=== PATIENT | female | born 1945 | race Caucasian/White ===

== ENCOUNTER 2017-10-09 18:37 | Observation (INO) | payer OTHER ==
--- OUTSIDE RECORDS SUMMARY | 2017-10-09 18:39 | XMS REPORT ---
:1945 Author Organization eClinicalWorks Care Team Providers Name Role Phone Soto Kauffman Provider Role Unavailable Allergies No Known Allergies Problems Problem Type Condition Code Onset Dates Condition Status Problem Constipation K59.00 Active Problem Osteopenia M85.80 Active Problem Hypertriglyceridemia E78.1 Active Problem Controlled type 2 diabetes mellitus E11.9 Active without complication, without long-term current use of insulin Assessment Depression, unspecified depression F32.9 Active type Problem Glaucoma of both eyes, unspecified H40.9 Active glaucoma type Assessment 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 Problem Depression, unspecified depression F32.9 Active type Problem Allergic rhinitis J30.9 Active Problem GERD (gastroesophageal reflux K21.9 Active disease) Problem 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 Problem Family history of cardiac disorder Z82.49 Active Assessment Allergic rhinitis J30.9 Active Assessment GERD (gastroesophageal reflux K21.9 Active disease) Assessment Glaucoma of both eyes, unspecified H40.9 Active glaucoma type Assessment Constipation K59.00 Active Assessment Controlled type 2 diabetes mellitus E11.9 Active without complication, without long-term current use of insulin Problem Hyperlipidemia, mixed E78.2 Active Assessment Osteopenia M85.80 Active Problem Family history of colon cancer Z80.0 Active Assessment Hyperlipidemia, mixed E78.2 Active Problem Family history of diabetes mellitus Z83.3 Active Medications Medication Code Code Instructions Start End Status Dosage System Date Date Oscal 500/200 [facility] 90627352450 500-200 MG-UNIT Active 1 tablet D-3 Orally Once a with food day Latanoprost ND 64423617820 0.005 % Active 1 drop into Ophthalmic Once affected a day eye in the evening Metformin HCl ND 82179810422 500 MG Orally Active 1 tablet Twice a day with meals Simvastatin ND 64821161890 20 MG Orally Active 1 tablet in Once a day the evening Omeprazole ND 71440120973 20 MG Orally Active 1 capsule Once a day Combigan [facility] 00856821265 0.2-0.5 % Active 1 drop into Ophthalmic affected Twice a day eye MiraLax ND 18609025555 - Orally Once a Active 1 packet day mixed with 8 ounces of fluid Tylenol ND 71088112328 325 MG Orally Active 2 tablets every 6 hrs as needed Flonase ND 63112430583 50 MCG/ACT Active 1 spray in Nasally Once a each day nostril Fish Oil ND 31976537557 1000 MG Orally Active 1 capsule Once a day Docusate Sodium ND 88428878094 100 MG Orally Active 1 capsule Once a day as needed Super B Complex ND 0 Active not defined Results No Known Results Summary Purpose eClinicalWorks Submission
--- OUTSIDE RECORDS SUMMARY | 2017-10-09 18:39 | XMS REPORT ---
[...] without long-term current use of insulin Problem Glaucoma of both eyes, unspecified H40.9 Active glaucoma type Problem Depression, unspecified depression F32.9 Active type Problem Allergic rhinitis J30.9 Active Problem GERD (gastroesophageal reflux K21.9 Active disease) Problem 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 Problem Family history of cardiac disorder Z82.49 Active Problem Hyperlipidemia, mixed E78.2 Active Problem Family history of colon cancer Z80.0 Active Problem Family history of diabetes mellitus Z83.3 Active Medications No Known Medications Results No Known Results Summary Purpose eClinicalWorks Submission
--- OUTSIDE RECORDS SUMMARY | 2017-10-09 18:39 | XMS REPORT ---
:1945 Author Organization eClinicalWorks Care Team Providers Name Role Phone Soto Kauffman Provider Role Unavailable Allergies, Adverse Reactions, Alerts Substance Reaction Event Type N.K.D.A. Info Not Available Non Drug Allergy Problems Problem Type Condition Code Onset Dates Condition Status Assessment Screening for osteoporosis Z13.820 Active Assessment Screening mammogram, encounter for Z12.31 Active Assessment 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 Problem Family history of diabetes mellitus Z83.3 Active Assessment Depression, unspecified depression F32.9 Active type Problem Constipation K59.00 Active Assessment Glaucoma of both eyes, unspecified H40.9 Active glaucoma type Problem Hypertriglyceridemia E78.1 Active Problem GERD (gastroesophageal reflux K21.9 Active disease) Problem Osteopenia M85.80 Active Problem Depression, unspecified depression F32.9 Active type Problem Controlled type 2 diabetes mellitus E11.9 Active without complication, without long-term current use of insulin Assessment Microalbuminuria R80.9 Active Assessment Allergic rhinitis J30.9 Active Problem Microalbuminuria R80.9 Active Assessment Constipation K59.00 Active Problem Allergic rhinitis J30.9 Active Problem Family history of cardiac disorder Z82.49 Active Problem Glaucoma of both eyes, unspecified H40.9 Active glaucoma type Problem 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 Assessment Hyperlipidemia, mixed E78.2 Active Assessment Medicare annual wellness visit, Z00.00 Active initial Assessment GERD (gastroesophageal reflux K21.9 Active disease) Assessment Osteopenia M85.80 Active Problem Hyperlipidemia, mixed E78.2 Active Problem Family history of colon cancer Z80.0 Active Assessment Controlled type 2 diabetes mellitus E11.9 Active without complication, without long-term current use of insulin Medications Medication Code Code Instructions Start End Status Dosage System Date Date Docusate Sodium NDC 48592242416 100 MG Orally Active 1 capsule Once a day as needed Metformin HCl NDC 17822697540 500 MG Orally Active 1 tablet Twice a day with meals Combigan ND 02420138610 0.2-0.5 % Active 1 drop into Ophthalmic affected Twice a day eye Tradjenta [facility] 54699333418 5 MG Orally Sep 25, Active 1 tablet Once a day 2017 Flonase ND 27312397789 50 MCG/ACT Active 1 spray in Nasally Once a each day nostril Oscal 500/200 [facility] 77742034835 500-200 MG-UNIT Active 1 tablet D-3 Orally Once a with food day Lisinopril ND 89308257366 2.5 MG Orally Sep 25, Active 1 tablet Once a day 2017 Omeprazole ND 07198870526 40 MG Orally Active 1 capsule Once a day MiraLax ND 71538693178 - Orally Once a Active 1 packet day mixed with 8 ounces of fluid Tylenol ND 98561680244 325 MG Orally Active 2 tablets every 6 hrs as needed Latanoprost [facility] 19043016262 0.005 % Active 1 drop into Ophthalmic Once affected a day eye in the evening Fish Oil ND 78715007502 1000 MG Orally Active 1 capsule Once a day Simvastatin ND 72441821421 20 MG Orally Active 1 tablet in Once a day the evening Super B Complex ND 0 Active not defined Results No Known Results Summary Purpose eClinicalWorks Submission
--- NOTE | 2017-10-09 19:35 | RAD REPORT ---
EXAM DESCRIPTION: RAD - Chest Single View - 10/09/2017 7:30 pm CLINICAL HISTORY: CHEST PAIN Chest pain. COMPARISON: CHEST PA AND LAT 2 VIEW dated 09/03/2013; CHEST PA AND LAT 2 VIEW dated 06/27/2010 FINDINGS: Portable technique limits examination quality. The lungs are grossly clear. The heart is normal in size. No displaced fractures.Hardware plate is pr esent in the cervical spine. IMPRESSION: No acute intrathoracic process suspected.
[2017-10-09 19:37] LABS: Absolute Lymphocytes (CBC) 1.6 K/uL (0.7-4.9); Absolute Monocytes 0.4 K/uL (0.1-1.3); Absolute Neutrophil 2.8 K/uL (1.8-8.0); Basophils % 0.4 % (0-1.3); Eosinophils % 2.2 % (0-4.4); Hematocrit 31.5 % (36.0-45.0); MCH 29.1 pg (27.0-35.0); MCV 83.9 fL (80-100); MPV 8.4 fL (7.6-11.3); Monocytes % 8.6 % (3.3-12.3); RBC Red Blood Cell Count 3.75 M/uL (3.86-4.86)
[2017-10-09 19:54] LABS: Albumin 3.9 g/dL (3.4-5.0); Bilirubin Direct 0.2 mg/dL (0-0.2); Bilirubin Total 0.4 mg/dL (0.2-1.0); Magnesium 2.2 mg/dL (1.8-2.4); Potassium 3.8 mmol/L (3.5-5.1); Protein, Total 7.5 g/dL (6.4-8.2)
[2017-10-09 20:40] LABS: Protime INR 0.92
--- NOTE | 2017-10-09 21:05 | EDPHYS ---
Physician Documentation [facility] Name: Shelby Mccormick Age: 72 yrs Sex: Female : 1945 Arrival Date: 10/09/2017 Time: 18:40 Bed 24 Private MD: Soto Kauffman ED Physician Isidoro Orozco HPI: 10/09 19:35 This 72 yrs old Female presents to ER via Ambulatory with complaints of Chest jr8 Pain. 19:35 The patient or guardian reports chest pain that is located primarily in the anterior jr8 chest wall, left. Onset: acutely, yesterday. The pain radiates to left back. Associated signs and symptoms: The patient has no apparent associated signs or symptoms. The chest pain is described as a pressure, sharp. Duration: The patient or guardian reports multiple episodes. Modifying factors: The symptoms are alleviated by nothing. Severity of pain: At its worst the pain was moderate in the emergency department the pain has improved. The patient has not experienced similar symptoms in the past. The patient has not recently seen a physician. Patient stated that she had episode of chest pain last night. Stated that it had gone away. This afternoon had a more severe bout of chest pain. Came to ED at that time for further evaluation . Historical: - Allergies: 20:09 No Known Allergies; kr2 - Home Meds: 20:05 Lexapro 10 mg Oral tab 1 tab once daily [Active]; omeprazole 20 mg Oral cpDR 1 cap once kr2 daily [Active]; simvastatin 10 mg Oral tab 1 tab once daily [Active]; - PMHx: 20:05 acid reflux; High Cholesterol; kr2 - PSHx: 20:05 Cholecystectomy; Hysterectomy; kr2 - Immunization history:: Adult Immunizations up to date. - Social history:: Smoking status: Patient/guardian denies using tobacco. - Ebola Screening: : Patient denies exposure to infectious person Patient denies travel to an Ebola-affected area in the 21 days before illness onset. ROS: 19:35 Eyes: Negative for injury, pain, redness, and discharge, ENT: Negative for injury, jr8 pain, and discharge, Neck: Negative for injury, pain, and swelling, Respiratory: Negative for shortness of breath, cough, wheezing, and pleuritic chest pain, Abdomen/GI: Negative for abdominal pain, nausea, vomiting, diarrhea, and constipation, Back: Negative for injury and pain, MS/Extremity: Negative for injury and deformity, Skin: Negative for injury, rash, and discoloration, Neuro: Negative for headache, weakness, numbness, tingling, and seizure. 19:35 Cardiovascular: Positive for chest pain, Negative for edema, orthopnea, palpitations, paroxysmal nocturnal dyspnea. Exam: 19:35 Eyes: Pupils equal round and reactive to light, extra-ocular motions intact. Lids and jr8 lashes normal. Conjunctiva and sclera are non-icteric and not injected. Cornea within normal limits. Periorbital areas with no swelling, redness, or edema. ENT: Nares patent. No nasal discharge, no septal abnormalities noted. Tympanic membranes are normal and external auditory canals are clear. Oropharynx with no redness, swelling, or masses, exudates, or evidence of obstruction, uvula midline. Mucous membranes moist. Neck: Trachea midline, no thyromegaly or masses palpated, and no cervical lymphadenopathy. Supple, full range of motion without nuchal rigidity, or vertebral point tenderness. No Meningismus. Cardiovascular: Regular rate and rhythm with a normal S1 and S2. No gallops, murmurs, or rubs. Normal PMI, no JVD. No pulse deficits. Respiratory: Lungs have equal breath sounds bilaterally, clear to auscultation and percussion. No rales, rhonchi or wheezes noted. No increased work of breathing, no retractions or nasal flaring. Abdomen/GI: Soft, non-tender, with normal bowel sounds. No distension or tympany. No guarding or rebound. No evidence of tenderness throughout. Back: No spinal tenderness. No costovertebral tenderness. Full range of motion. Skin: Warm, dry with normal turgor. Normal color with no rashes, no lesions, and no evidence of cellulitis. MS/ Extremity: Pulses equal, no cyanosis. Neurovascular intact. Full, normal range of motion. Neuro: Awake and alert, GCS 15, oriented to person, place, time, and situation. Cranial nerves II-XII grossly intact. Motor strength 5/5 in all extremities. Sensory grossly intact. Cerebellar exam normal. Normal gait. Vital Signs: 18:42 BP 122 / 61; Pulse 68; Resp 16; Pulse Ox 96% on R/A; Weight 76.66 kg; Height 5 ft. 4 ss in. (162.56 cm); Pain 2/10; 20:07 BP 118 / 69; Pulse 88; Resp 23; Pulse Ox 95% on R/A; kr2 21:35 BP 145 / 74; Pulse 54; Resp 12; Temp 97.7; Pulse Ox 95% on R/A; kr2 22:30 BP 136 / 70; Pulse 66; Resp 15; Pulse Ox 97% on R/A; kr2 23:30 BP 126 / 70; Pulse 70; Resp 17; Pulse Ox 95% on R/A; kr2 18:42 Body Mass Index 29.01 (76.66 kg, 162.56 cm) ss MDM: 18:59 Patient medically screened. jr8 21:04 The patient was not given aspirin in the Emergency Department. Patient reports taking jr8 aspirin within the past 24 hours. Data reviewed: vital signs, nurses notes, lab test result(s), EKG, radiologic studies, plain films, and as a result, I will admit patient. Counseling: I had a detailed discussion with the patient and/or guardian regarding: the historical points, exam findings, and any diagnostic results supporting the discharge/admit diagnosis, lab results, radiology results, the need for further work-up and treatment in the hospital. 10/09 18:59 Order name: Basic Metabolic Panel; Complete Time: 20:25 10/09 18:59 Order name: CBC with Diff; Complete Time: 20:25 10/09 18:59 Order name: LFT's; Complete Time: 20:25 10/09 18:59 Order name: Magnesium; Complete Time: 20:25 10/09 18:59 Order name: NT PRO-BNP; Complete Time: 20:25 10/09 18:59 Order name: PT-INR; Complete Time: 20:56 10/09 18:59 Order name: Troponin (emerg Dept Use Only); Complete Time: 20:25 10/09 18:59 Order name: XRAY Chest (1 view); Complete Time: 19:37 10/09 18:59 Order name: EKG; Complete Time: 18:59 10/09 18:59 Order name: Cardiac monitoring; Complete Time: 19:20 10/09 18:59 Order name: EKG - Nurse/Tech; Complete Time: 19:19 10/09 18:59 Order name: IV Saline Lock; Complete Time: 19:20 10/09 18:59 Order name: Labs collected and sent; Complete Time: 19:20 10/09 18:59 Order name: O2 Per Protocol; Complete Time: 19:19 10/09 18:59 Order name: O2 Sat Monitoring; Complete Time: 19:19 10/09 18:59 Order name: Urine Dipstick-Ancillary (obtain specimen); Complete Time: 19:46 Administered Medications: 21:25 Drug: Zofran 4 mg Route: IVP; Site: right antecubital; kr2 21:41 Follow up: Response: No adverse reaction; Nausea is decreased kr2 21:27 Drug: fentaNYL (PF) 25 mcg Route: IVP; Site: right antecubital; kr2 21:41 Follow up: Response: No adverse reaction; Pain is decreased kr2 Disposition: 10/10 12:36 Co-signature as Attending Physician, Isidoro Orozco MD I agree with the assessment and wa plan of care. Disposition: 10/09/17 21:05 Hospitalization ordered by Brittany Salinas for Observation. Preliminary diagnosis is Chest pain, unspecified. - Bed requested for Telemetry/MedSurg (observation). - Status is Observation. bb - Condition is Stable. - Problem is new. - Symptoms have improved. UTI on Admission? No Signatures: Dispatcher [employer] EDIA Ewa Jennings RN RN mw Ballard, Brenda, RN RN bb Smirch, Shelby, RN RN ss Roszak, Josh, PA PA jr8 Isidoro Orozco MD MD wa Reaves, Karey, RN RN kr2 Corrections: (The following items were deleted from the chart) 10/09 21:07 21:05 Hospitalization Ordered by Brittany Salinas MD for Observation. Preliminary mw diagnosis is Chest pain, unspecified. Bed requested for Telemetry/MedSurg (observation). Status is Observation. Condition is Stable. Problem is new. Symptoms have improved. UTI on Admission? No. jr8 23:34 21:07 10/09/2017 21:05 Hospitalization Ordered by Brittany Salinas MD for Observation. bb Preliminary diagnosis is Chest pain, unspecified. Bed requested for Telemetry/MedSurg (observation). Status is Observation. Condition is Stable. Problem is new. Symptoms have improved. UTI on Admission? No. mw
--- NOTE | 2017-10-09 21:05 | ER ---
Nurse's Notes [facility] Name: Shelby Mccormick Age: 72 yrs Sex: Female : 1945 Arrival Date: 10/09/2017 Time: 18:40 Bed 24 Private MD: Soto Kauffman Diagnosis: Chest pain, unspecified Presentation: 10/09 18:42 Presenting complaint: Patient states: pain to L breast/ chest and pressure to L upper ss back that began last night. Comes and goes. Transition of care: patient was not received from another setting of care. Onset of symptoms was October 08, 2017. Risk Assessment: Do you want to hurt yourself or someone else? Patient reports no desire to harm self or others. Initial Sepsis Screen: Does the patient meet any 2 criteria? No. Patient's initial sepsis screen is negative. Does the patient have a suspected source of infection? No. Patient's initial sepsis screen is negative. Care prior to arrival: None. 18:42 Method Of Arrival: Ambulatory ss 18:42 Acuity: GORDON 3 ss Historical: - Allergies: 20:09 No Known Allergies; kr2 - Home Meds: 20:05 Lexapro 10 mg Oral tab 1 tab once daily [Active]; omeprazole 20 mg Oral cpDR 1 cap once kr2 daily [Active]; simvastatin 10 mg Oral tab 1 tab once daily [Active]; - PMHx: 20:05 acid reflux; High Cholesterol; kr2 - PSHx: 20:05 Cholecystectomy; Hysterectomy; kr2 - Immunization history:: Adult Immunizations up to date. - Social history:: Smoking status: Patient/guardian denies using tobacco. - Ebola Screening: : Patient denies exposure to infectious person Patient denies travel to an Ebola-affected area in the 21 days before illness onset. Screenin:06 Abuse screen: Denies threats or abuse. Denies injuries from another. Nutritional kr2 screening: No deficits noted. Tuberculosis screening: No symptoms or risk factors identified. Fall Risk None identified. Assessment: 19:25 General: Appears in no apparent distress. comfortable, well groomed, well developed, kr2 well nourished, Behavior is calm, cooperative, appropriate for age. Pain: Complains of pain in left breast Pain radiates to left scapular area Pain currently is 3 out of 10 on a pain scale. Quality of pain is described as sharp, Pain began last night Is episodic, Alleviated by rest. Neuro: Level of Consciousness is awake, alert, obeys commands, Oriented to person, place, time, situation. Cardiovascular: Capillary refill < 3 seconds in bilateral fingers Patient's skin is warm and dry. Cardiovascular: Heart tones S1 S2. Cardiovascular: Pulses are palpable in right radial artery and left radial artery. Respiratory: Airway is patent Respiratory effort is even, unlabored, Respiratory pattern is regular, symmetrical, Breath sounds are clear bilaterally. GI: Abdomen is flat, non-distended, Reports nausea, states "I always have nausea though". : Denies burning with urination. EENT: Oral mucosa is moist. Derm: Skin is intact, is healthy with good turgor, Skin is pink, warm \\T\\ dry. Musculoskeletal: Circulation, motion, and sensation intact. 20:08 Reassessment: Patient appears in no apparent distress at this time. Patient and/or kr2 family updated on plan of care and expected duration. Pain level reassessed. Patient is alert, oriented x 3, equal unlabored respirations, skin warm/dry/pink. 21:25 Reassessment: Patient appears in no apparent distress at this time. Patient and/or kr2 family updated on plan of care and expected duration. Pain level reassessed. Patient is alert, oriented x 3, equal unlabored respirations, skin warm/dry/pink. Patient medicated as ordered for pain. 21:38 Reassessment: Report called to receiving nurse CALLUM Sweeney. kr2 22:30 Reassessment: Patient appears in no apparent distress at this time. Patient and/or kr2 family updated on plan of care and expected duration. Pain level reassessed. Patient is alert, oriented x 3, equal unlabored respirations, skin warm/dry/pink. Patient denies pain at this time. 23:30 Reassessment: Patient appears in no apparent distress at this time. Patient and/or kr2 family updated on plan of care and expected duration. Pain level reassessed. Patient is alert, oriented x 3, equal unlabored respirations, skin warm/dry/pink. Patient denies pain at this time. Patient states feeling better. Vital Signs: 18:42 BP 122 / 61; Pulse 68; Resp 16; Pulse Ox 96% on R/A; Weight 76.66 kg; Height 5 ft. 4 ss in. (162.56 cm); Pain 2/10; 20:07 BP 118 / 69; Pulse 88; Resp 23; Pulse Ox 95% on R/A; kr2 21:35 BP 145 / 74; Pulse 54; Resp 12; Temp 97.7; Pulse Ox 95% on R/A; kr2 22:30 BP 136 / 70; Pulse 66; Resp 15; Pulse Ox 97% on R/A; kr2 23:30 BP 126 / 70; Pulse 70; Resp 17; Pulse Ox 95% on R/A; kr2 18:42 Body Mass Index 29.01 (76.66 kg, 162.56 cm) ss ED Course: 18:40 Patient arrived in ED. sb2 18:40 Soto Kauffman DO is Private Physician. sb2 18:42 Arm band placed on right wrist. ss 18:45 EKG done, by ED staff, reviewed by Jimmie PETERS. Patient maintains SpO2 saturation kr2 greater than 95% on room air. 18:51 Inserted saline lock: 20 gauge in right antecubital area, using aseptic technique. ss Blood collected. 18:58 [facility] jr8 18:58 Isidoro Orozco MD is Attending Physician. jr8 19:12 Triage completed. ss 19:19 Amairani Quintana, RN is Primary Nurse. kr2 19:20 Patient has correct armband on for positive identification. Bed in low position. Call kr2 light in reach. Side rails up X2. Adult w/ patient. nuclear operator on. Pulse ox on. NIBP on. Door closed. Warm blanket given. Head of bed elevated. 19:29 X-ray completed. Portable x-ray completed in exam room. Patient tolerated procedure mh1 well. 19:30 XRAY Chest (1 view) In Process Unspecified. EDMS 21:05 Brittany Salinas MD is Hospitalizing Provider. jr8 21:39 No provider procedures requiring assistance completed. Patient admitted, IV remains in kr2 place. Administered Medications: 21:25 Drug: Zofran 4 mg Route: IVP; Site: right antecubital; kr2 21:41 Follow up: Response: No adverse reaction; Nausea is decreased kr2 21:27 Drug: fentaNYL (PF) 25 mcg Route: IVP; Site: right antecubital; kr2 21:41 Follow up: Response: No adverse reaction; Pain is decreased kr2 Outcome: 21:05 Decision to Hospitalize by Provider. kg 21:39 Admitted to Tele accompanied by tech, family with patient, via wheelchair, room 420, kr2 with chart, Report called to Zahra 21:39 Condition: stable 21:39 Instructed on the need for admit, Demonstrated understanding of instructions. 23:34 Patient left the ED. bb Signatures: Dispatcher [employer] EDMS Ewa Mohan 1 Terra Lua RN RN bb Chely Morales RN RN ss Jimmie López PA PA jr8 Amairani Quintana RN RN kr2 Maria Elena Engel sb2 Corrections: (The following items were deleted from the chart) 20:05 19:25 Pain: Complains of pain in left breast Pain radiates to left scapular area Pain kr2 currently is 7 out of 10 on a pain scale. Quality of pain is described as sharp, Pain began last night Is episodic, Alleviated by rest, kr2
[2017-10-09] MEDS ORDERED: FENTANYL CITR 100 MCG/2 ML ONE (21:25)
[2017-10-09] MEDS ORDERED: ONDANSETRON 4 MG/2 ML VIAL ONE (21:25)
[2017-10-09] MEDS ORDERED: MORPHINE 4 MG/ML SYR IV PRN (22:55)
[2017-10-09] MEDS ORDERED: ALPRAZOLAM 0.25 MG TABLET PO PRN (22:55)
[2017-10-09] MEDS ORDERED: ACETAMINOPHEN 500 MG TAB PO PRN (22:55)
[2017-10-10 01:49] LABS: Urine Appearance CLEAR; Urine Bilirubin NEGATIVE (NEG); Urine Blood NEGATIVE (NEG); Urine Color YELLOW; Urine Glucose NEGATIVE (NEG); Urine Protein NEGATIVE (NEG); Urine Specific Gravity 1.015 (1.005-1.030); Urine Urobilinogen 0.2 mg/dL (0.2-1.0); Urine pH 6.5 (5.0-7.0)
[2017-10-10 01:57] VITALS: BMI 28.0
[2017-10-10 02:03] LABS: Urine Microscopic Reflex ORDER UMIC
[2017-10-10 02:23] LABS: Urine Bacteria <20 /HPF (<20); Urine Culture Reflex Order REFLEXED; Urine RBC NONE SEEN /HPF (NONE SEEN)
[2017-10-10] MEDS ORDERED: ACETAMINOPHEN 325 MG TABLET PO PRN (06:24)
[2017-10-10 06:49] LABS: Absolute Lymphocytes (CBC) 1.4 K/uL (0.7-4.9); Absolute Monocytes 0.4 K/uL (0.1-1.3); Absolute Neutrophil 2.3 K/uL (1.8-8.0); Basophils % 0.5 % (0-1.3); Eosinophils % 2.3 % (0-4.4); Hematocrit 29.7 % (36.0-45.0); Lymphocytes % 33.8 % (15.3-44.8); MCH 29.1 pg (27.0-35.0); MCV 82.8 fL (80-100); MPV 8.2 fL (7.6-11.3); Monocytes % 9.1 % (3.3-12.3); RBC Red Blood Cell Count 3.58 M/uL (3.86-4.86)
[2017-10-10] MEDS: ONDANSETRON 4 MG/2 ML VIAL IV PRN ×2 (07:05→16:12)
--- NOTE | 2017-10-10 07:57 | P.HP ---
Certification for Inpatient Patient admitted to: Observation With expected LOS: <2 Midnights Patient will require the following post-hospital care: None Practitioner: I am a practitioner with admitting privileges, knowledge of patient current condition, hospital course, and medical plan of care. Services: Services provided to patient in accordance with Admission requirements found in Title 42 Section 412.3 of the Code of Federal Regulations Patient History Date of Service: 10/09/17 Reason for admission: Chest pain with intractable nausea History of Present Illness: Patient is a 72-year-old female who comes to the hospital with complaints of chest discomfort. Pain was mainly in the anterior chest wall which radiate to her left side of her back. The was no worsening signs or symptoms. Pain was described as a heaviness with sharp pressure. Patient denies any other complaints. Patient also has been having some abdominal discomfort and has been seen GI for this. She is scheduled for an endoscopy. She has had persistent nausea which is still been going on with the chest pain. Her symptoms have not been alleviated. This afternoon her chest pain returned and was much worse. In the ER she was worked up in her troponins and EKG were negative. Patient did have a stress test 2 years ago which was unremarkable according to patient. She will be admitted to the hospital for further evaluation. Allergies Latex, Natural Rubber Allergy (Verified 10/09/17 23:51) Itching No Known Allergies Allergy (Uncoded 10/09/17 23:51) Unknown Home Medications: Acetaminophen [Tylenol] 325 mg PO DAILYPRN PRN 04/25/14 Bimatoprost [Lumigan] 1 drop OP BEDTIME 04/25/14 Omeprazole [Prilosec] 40 mg PO DAILY 04/25/14 Brimonidine Tartrate/Timolol [Combigan 0.2%-0.5% Eye Drops] 1 drop OP BID Linagliptin [Tradjenta] 1 tab PO DAILY 10/09/17 Lisinopril [Zestril] 1 tab PO DAILY 10/09/17 Metformin HCl 1 tab PO BID 10/09/17 Simvastatin 1 tab PO BEDTIME 10/09/17 - Past Medical/Surgical History Has patient received pneumonia vaccine in the past: Yes Diabetic: Yes -: Acid Reflux -: High Cholesterol -: NIDDM -: Tubal -: Hysterectomy -: Gall bladder -: Cervical neck repair -: Left Knee Replacement - Family History Father History Unknown: Yes Medical History: Heart disease, Lung disease, GI disease Mother Medical History: Diabetes, Stroke, Kidney disease Sister Medical History: Hypertension, Lung disease, Diabetes, Liver disease, Other ( see notes) Brother Medical History: GI disease, Liver disease - Social History Smoking Status: Never smoker Alcohol use: No CD- Drugs: No Caffeine use: No Place of Residence: Home Review of Systems 10-point ROS is otherwise unremarkable Physical Examination - Vital Signs Temperature: 97.4 F Blood Pressure: 114/60 Pulse: 60 Respirations: 16 Pulse Ox (%): 98 - Physical Exam General: Alert, In no apparent distress, Oriented x3 HEENT: Atraumatic, PERRLA, Mucous membr. moist/pink, EOMI, Sclerae nonicteric Neck: Supple, 2+ carotid pulse no bruit, No LAD, Without JVD or thyroid abnormality Respiratory: Clear to auscultation bilaterally, Normal air movement Cardiovascular: Regular rate/rhythm, Normal S1 S2, Systolic murmur Gastrointestinal: Normal bowel sounds, Soft and benign, Non-distended, No rebound, Tenderness, Guarding Musculoskeletal: No clubbing, No swelling, No tenderness Integumentary: No rashes Neurological: Normal gait, Normal speech, Normal strength at 5/5 x4 extr, Normal tone, Sensation intact, Cranial nerves 3-12 intact, Normal affect Lymphatics: No axilla or inguinal lymphadenopathy - Studies Laboratory Data (last 24 hrs) 10/09/17 18:52: PT 10.8, INR 0.92 10/09/17 18:52: WBC 5.0, Hgb 10.9 L, Hct 31.5 L, Plt Count 227 10/09/17 18:52: Sodium 141, Potassium 3.8, BUN 16, Creatinine 0.90, Glucose 120 H, Magnesium 2.2, Total Bilirubin 0.4, AST 22, ALT 28, Alkaline Phosphatase 70 Assessment & Plan - Problems (Diagnosis) (1) Chest pain, rule out acute myocardial infarction Current Visit: Yes Status: Acute (2) Nausea alone Current Visit: Yes Status: Acute (3) Abdominal pain Current Visit: Yes Status: Acute (4) History of hypertension Current Visit: Yes Status: Acute (5) History of type 2 diabetes mellitus Current Visit: Yes Status: Acute (6) Gastroesophageal reflux Current Visit: Yes Status: Acute - Plan 1. Serial troponins and EKG 2. Cardiology consultation 3. Echocardiogram and stress test 4. Anti-platelet therapy, anti coagulation, beta-tigist, statin, and O2 as needed 5. IV morphine for pain 6. Nitro p.r.n. 7. PPI 8. CT of the abdomen and pelvis to further evaluate abdominal pain and tenderness on exam as well as regarding she is exhibiting 9. GI and DVT prophylaxis Discharge Plan: Home Plan to discharge in: 24 Hours - Advance Directives Does patient have a Living Will: No Does patient have a Durable POA for Healthcare: No - Code Status/Comfort Care Code Status Assessed: Yes Code Status: Full Code Critical Care: No Time Spent Managing PTS Care (In Minutes): 50
[2017-10-10] MEDS ORDERED: REGADENOSON 0.4 MG/5 ML SYR IV ONE ×2 (08:04→08:05)
[2017-10-10] MEDS ORDERED: METOPROLOL TAR 50 MG TAB PO SCH (09:00)
--- NOTE | 2017-10-10 10:53 | RAD REPORT ---
EXAM DESCRIPTION: NM - Rest Stress Cardiac Imaging - 10/10/2017 10:45 am CLINICAL HISTORY: CP Chest pain. COMPARISON: No comparisons TECHNIQUE: The patient was administered approximately 10mCi of Tc 99m Sestamibi prior to resting SPE CT imaging of the heart. The patient was then administered approximately 30 mCi of Tc 99m Sestamibi f ollowing exercise or pharmacologic stress. Multiplanar SPECT images were reviewed. FINDINGS: No stress induced ischemic defect is seen to suggest stress induced ischemia. No fixed def ect is seen to suggest hibernating myocardium or scarred myocardium. The end diastolic volume is 69 ml, the end systolic volume is 26 ml, and the ejection fraction is 62 %. IMPRESSION: No stress induced ischemia.
[2017-10-10] MEDS: PANTOPRAZOLE 40MG TABLET PO SCH (11:16)
--- NOTE | 2017-10-10 11:16 | RAD REPORT ---
EXAM DESCRIPTION: CT - Abdomen Pelvis W Contrast - 10/10/2017 10:42 am CLINICAL HISTORY: abd pain and nausea COMPARISON: No comparisonsNone. TECHNIQUE: Computed axial tomography of the abdomen and pelvis was obtained. 100 cc Isovue-300 is ad ministered intravenously. Oral contrast was given. All CT scans are performed using dose optimization technique as appropriate and may include automated exposure control or mA/KV adjustment according to patient size. FINDINGS: Fatty infiltration liver is present. Spleen, pancreas, adrenals and kidneys appear unremarkable. A hysterectomy has been performed. An adnexal mass is not seen. The gallbladder has been removed. The wall of the distal esophagus appears thickened. There is no evidence of diverticulitis. The cecum is mildly distended at 8.4 centimeters Mild anterior subluxation of L4 on L5 is present IMPRESSION: Apparent thickening of the wall of the distal esophagus could be secondary to incomplet e distention or inflammation Mild cecal distention
[2017-10-10] MEDS ORDERED: NA CHLORIDE 0.9% 1,000 ML ONE (13:21)
[2017-10-10] MEDS ORDERED: PROPOFOL 200 MG/20 ML VIAL IV ONE (15:04)
[2017-10-10] MEDS ORDERED: LIDOCAINE 1% MPF 2 ML AMPULE ONE (15:05)
--- NOTE | 2017-10-10 15:35 | ENDO RPT ---
[address], [address] EGD PROCEDURE REPORT EXAM DATE: 10/10/2017 PATIENT NAME: Shelby Munoz MR#: [id number] BIRTHDATE: 1945 ATTENDING: Isidoro Lynn Dr STATUS: inpatient - [facility] CASTING OPERATOR HELPER: Chelsea Ansari RN and Lizett Brothers RN INDICATIONS: The patient is a 72 yr old Female here for an EGD due to atypical chest pain, nausea, GERD, and abnormal CT abdomen/pelvis revealing thickening of the distal esophagus PROCEDURE PERFORMED: EGD with biopsy MEDICATIONS: Per Anesthesia. TOPICAL ANESTHETIC: none CONSENT: The patient understands the risks and benefits of the procedure and understands that these risks include, but are not limited to: sedation, allergic reaction, infection, perforation and/or bleeding. Alternative means of evaluation and treatment include, among others: physical exam, x-rays, and/or surgical intervention. The patient elects to proceed with this endoscopic procedure. DESCRIPTION OF PROCEDURE: During intra-op preparation period all mechanical medical equipment was checked for proper function. Hand hygiene and appropriate measures for infection prevention was taken. Procedure, possible complications, and alternatives including but not limited to the possibility of bleeding, perforation, tear, infection, sepsis, need for surgery, need for blood transfusion, and anesthesia related complications were explained to the patient. After the risks, benefits and alternatives of the procedure were thoroughly explained, Informed consent was verified, confirmed and timeout was successfully executed by the treatment team. The patient was placed in the left lateral position. The patient was anesthetized with topical anesthesia. Through the anesthetized oropharyngeal area, the scope was passed without any difficulty. The EG-[id number] ([id number]) endoscope was introduced through the mouth and advanced to the third portion of the duodenum. Retroflexed views revealed a small hiatal hernia. The gastroscope was then slowly withdrawn and removed. A small hiatal hernia was found Severe Atrophic gastritis was found in the body of the stomach. Multiple biopsies were obtained and sent to pathology. ADVERSE EVENTS: There were no complications. IMPRESSIONS: 1. A small hiatal hernia 2. Severe atrophic gastritis in the body of the stomach, s/p biopsies RECOMMENDATIONS: 1. await biopsy results 2. acid suppression therapy REPEAT EXAM: Isidoro Lynn Dr eSigned: Isidoro Lynn Dr 10/10/2017 3:34 PM cc: Brittany Salinas CPT CODES: ICD9 CODES: PATIENT NAME: Shelby Munoz MR#: [id number]
[2017-10-10 16:19] VITALS: O2SAT 96
[2017-10-10] MEDS ORDERED: NA CHLORIDE 0.9% 250 ML IV ONE (20:15)
[2017-10-10] MEDS ORDERED: ATORVASTATIN 10 MG TAB PO SCH (21:00)
[2017-10-10] MEDS ORDERED: HOME MED 1 EA UNK (Simvastatin [Simvastatin] 1 TAB) PO SCH (21:00)
[2017-10-10] MEDS: NA CHLORIDE 0.9% 1,000 ML IV SCH (21:08)
--- NOTE | 2017-10-10 22:27 | CON ---
Date of Consultation: 10/10/2017 Reason For Consultation: Atypical chest pain with abnormal CT of the abdomen revealing possible esop hagitis in the distal esophagus. History Of Present Illness: The patient is a 72-year-old white female with a history of diabetes, hy percholesterolemia, gastroesophageal reflux disease, hysterectomy, cholecystectomy, total knee repair . The patient presented to the hospital with atypical chest pain, intractable nausea. The patient s tates nausea has been going over the past 6 months and chest pain over the past 2 days. The patient had negative Cardiology evaluation in the emergency room and on the floor. Here troponin I, EKGs neg ative and further Cardiology evaluation has been negative. CT scan did reveal thickening of the dist al esophagus, impression is possible esophagitis and GI asked to be involved to evaluate this possibi lity. Past Medical History: Significant for diabetes, hypercholesterolemia, gastroesophageal reflux diseas e, hysterectomy, cholecystectomy, left total knee repair, C3 through 5 diskectomy, cystocele repair, rectocele repair, and carpal tunnel surgery. Medications: Home medications include Tylenol, Lumigan, Prilosec, Combigan, Tradjenta, lisinopril, m etformin, and Zocor. Allergies: TO LATEX, CAUSES ITCHING. Social History: , 3 children. Son with diabetes. No tobacco. No alcohol. Family History: Father of pulmonary embolism with DVT after surgery. Mother of strokes. Also what sounds like a brother with liver disease, GI disease. She has 1 son with diabetes. Mother also had chronic kidney disease and diabetes. Review of Systems: The patient has chest pain, nausea. She denies any change in weight, hematemesis, coffee-ground emes is, melena, hematochezia, hemoptysis, hematuria, dysuria, polydipsia, shortness of breath, seizure, s yncope, lower extremity paresthesias, muscle aches, joint aches, backaches. No depression and anxiet y. Physical Examination: Vital signs: The patient is 5 feet 4 inches, 163 pounds, BMI 28 kg/m2. Temperature 96.5 degrees Fah renheit, pulse 80, respirations 16, blood pressure 105/59, O2 saturation 98% on room air. General: She is an elderly female, lying in bed, in no acute distress with a decreased hearing. HEENT: Normocephalic, atraumatic. Anicteric. Pupils equal, round, and reactive to light. Extraocu lar movements are intact. Oropharynx is clear. Mild alopecia. Neck: Supple. No masses. Respirations: Clear to auscultation bilaterally. Cardiac: Regular rate and rhythm. No gallops or rubs. Abdomen: Positive bowel sounds. Soft, nontender, nondistended. No hepatosplenomegaly. Mildly obes e. No peritoneal or Barreto sign. No rebound. Extremities: No clubbing, cyanosis, or edema, 2+ pulses. Neuro: Alert and oriented x3. Grossly nonfocal. 5/5 motor strength to light touch. Laboratory Data: The patient's white count 4.2, hemoglobin 10.4, hematocrit 30, MCV of 83, platelet count of 319, polys of 54%, lymphocytes 34%, monocytes 9%, eosinophils 2%. PT of 10.8, INR of 1.0. The patient has a sodium yesterday on the of 141, potassium 3.8, chloride 109, bicarb 26, BUN 16 , creatinine 0.9, glucose 120, calcium 9.1, magnesium 2.2, total bilirubin 0.4, direct bilirubin 0.2, AST 22, ALT 28, alkaline phosphatase 70. Troponin I of less than 0.02. B-type natriuretic peptide of 30. Total protein 7.5, albumin 3.9. UA reveals 2+ leukocyte esterase, 20-50 white blood cells, , 5 to 10 squamous epithelial cells, negative total protein, 2+ leukocyte esterase. Imagin.CT of the abdomen and pelvis revealed thickening in the distal esophagus, possible consistent with esophagitis or other. Need further comparison with upper endoscopy. 2.Cecal distention plus 8 cm of mild anterior subluxation of the L4-5 is present. 3.Hysterectomy changes noted. 4.Gallbladder has been removed. 5.Fatty infiltration of liver is noted. Impression: 1.Atypical chest pain for 2 days with negative cardiology evaluation. 2.Possible esophagitis with inflammation and thickening of the distal esophagus noted. 3.Ongoing nausea for the past 6 months. 4.Fatty liver noted on CT scan of abdomen. 5.Urinary tract infection. 6.History of diabetes, hypercholesterol, triglyceridemia, gastroesophageal reflux disease, hysterect kt, cholecystectomy, left total knee replacement, C3 through 5 diskectomy, neck surgery. 7.Cystocele repair. 8.Rectocele repair. 9.Carpal tunnel surgery. Recommendations: 1.Continue PPI therapy. 2.EGD. 3.Monitor labs. LOGAN Voice ID: [id number] Report ID: [id number]
--- NOTE | 2017-10-10 22:41 | PN ---
Date of Progress Note: 10/10/2017 Subjective: The patient seen and examined. Chart reviewed and case discussed with RN and Dr. Joshua greene as well as Dr. Lynn. The patient did well with the stress test which was negative. Family at e bedside. Treatment plan explained. All questions answered. The patient is still complaining of c hest tightness and pain. Review of Systems: Negative except as above. Medications: List reviewed. Physical Examination: Vital Signs: Temperature 97.5, heart rate 50, blood pressure 117/55, respirations 18, O2 96% on room air. General: Awake, alert, oriented x3, in some mild distress. Elderly female. CV: S1, S2. No murmurs. Regular rate and rhythm. Peripheral pulses present. Respiratory: Moving air well bilaterally. No wheezing or stridor. Gastrointestinal: Abdomen is soft. No tenderness to palpation. Nondistended. Positive bowel sound s. Extremities: No clubbing, cyanosis, or edema. Neurologic: Nonfocal. Skin: No rashes. Normal skin turgor. Psych: Mood is okay. Affect is full. Insight and judgment are good. Code Status: Full. Laboratory Data: Troponin less than 0.02 x3. Glucose 102. WBC 4.2, H and H 10.4 and 29.7, platelet s 219. UA negative nitrite, 2+ leukocyte esterase, 20 to 50 wbc's, 5 to 10 squamous epithelial cells , less than 20 bacteria. Urine culture pending. Abdomen and pelvis CT personally reviewed, shows ap parent thickening of the wall of the distal esophagus could be secondary to incomplete distention or inflammation. Mild fecal distention. Nuclear stress test shows no stress-induced ischemia. EF 62%. Assessment And Plan: A 72-year-old female with: 1.Chest pain. Acute coronary syndrome ruled out. Cardiac stress test is negative. 2.Intractable nausea without vomiting. 3.Esophageal distention, rule out esophageal tear. Dr. Lynn has been consulted. The patient is g oi for endoscopy. 4.Abdominal pain, generalized. 5.Essential hypertension. 6.History of diabetes mellitus type 2, non-insulin dependent with no complications. 7.Gastroesophageal reflux disease. We will continue with PPI. Plan: Follow up with EGD report. Continue PPI, likely discontinue in the next 24 hours if continues to improve and cleared by consultants. /DOROTA Voice ID: [id number] Report ID: [id number]
[2017-10-11] MEDS: NA CHLORIDE 0.9% 1,000 ML IV SCH (05:32)
[2017-10-11] MEDS: PANTOPRAZOLE 40MG TABLET PO SCH (05:32)
--- NOTE | 2017-10-11 06:11 | EKG ---
Test Date: 2017-10-09 Test Time: 18:42:53 Bottoming Machine Operator: ARGELIA MEASUREMENT RESULTS: Intervals: Rate: 55 LA: 144 QRSD: 86 QT: 414 QTc: 396 [place]: P: 44 LA: 144 QRS: 51 T: 66 INTERPRETIVE STATEMENTS: Sinus bradycardia Otherwise normal ECG Compared to ECG 09/03/2013 13:59:44 Sinus rhythm no longer present Electronically Signed On 10-11-17 06:08:14 CDT by Shekhar Benavidez
[2017-10-11 06:13] LABS: Potassium 4.3 mmol/L (3.5-5.1)
[2017-10-11] MEDS ORDERED: PANTOPRAZOLE 40MG TABLET PO SCH (06:30)
--- NOTE | 2017-10-11 11:19 | P.DS ---
Admission Date: 10/09/17 Discharge Date: 10/11/17 Disposition: ROUTINE DISCHARGE Discharge Condition: FAIR Reason for Admission: Chest pain with intractable nausea Consultations: Dr. wilkinson Procedures: Endoscopy the nuclear cardiac stress test Brief History of Present Illness: Patient is 72 years of age admitted with some chest discomfort Hospital Course: Patient did well he EGD shows gastritis a cardiac nuclear stress test was negative at the time of discharge patient doing well alert oriented responsive cooperative known discomfort slight nausea labs all reviewed mildly anemic patient to be discharged home on pantoprazole at the time of discharge patient alert oriented responsive cooperative vital signs all stable cardiovascular system on sounds normal abdomen soft extremities no edema Vital Signs/Physical Exam: Temp Pulse Resp BP Pulse Ox 97.8 F 57 18 127/59 L 97 10/11/17 04:00 10/11/17 04:00 10/11/17 04:00 10/11/17 04:00 10/11/17 04:00 Laboratory Data at Discharge: WBC 4.2 K/uL (4.3-10.9) L D 10/10/17 05:51 Hgb 10.4 g/dL (12.0-15.0) L 10/10/17 05:51 Hct 29.7 % (36.0-45.0) L 10/10/17 05:51 Plt Count 219 K/uL (152-406) 10/10/17 05:51 PT 10.8 SECONDS (9.5-12.5) 10/09/17 18:52 INR 0.92 10/09/17 18:52 Sodium 145 mmol/L (136-145) 10/11/17 05:30 Potassium 4.3 mmol/L (3.5-5.1) 10/11/17 05:30 BUN 15 mg/dL (7-18) 10/11/17 05:30 Creatinine 0.80 mg/dL (0.55-1.3) 10/11/17 05:30 Glucose 161 mg/dL (74-106) H 10/11/17 05:30 Magnesium 2.2 mg/dL (1.8-2.4) 10/09/17 18:52 Total Bilirubin 0.4 mg/dL (0.2-1.0) 10/09/17 18:52 AST 22 U/L (15-37) 10/09/17 18:52 ALT 28 U/L (12-78) 10/09/17 18:52 Alkaline Phosphatase 70 U/L (45-117) 10/09/17 18:52 Troponin I < 0.02 ng/mL (0.0-0.045) 10/10/17 05:51 Home Medications: Acetaminophen [Tylenol] 325 mg PO DAILYPRN PRN 04/25/14 Bimatoprost [Lumigan] 1 drop OP BEDTIME 04/25/14 Omeprazole [Prilosec] 40 mg PO DAILY 04/25/14 Brimonidine Tartrate/Timolol [Combigan 0.2%-0.5% Eye Drops] 1 drop OP BID Linagliptin [Tradjenta] 1 tab PO DAILY 10/09/17 Lisinopril [Zestril] 1 tab PO DAILY 10/09/17 Metformin HCl 1 tab PO BID 10/09/17 Simvastatin 1 tab PO BEDTIME 10/09/17
[2017-10-11 15:20] VITALS: BP 121/57; TEMP 97.5
--- NOTE | 2017-10-14 10:00 | TREADPHA ---
DX: CHEST PAIN Date of Study: 10/10/2017 Ht: 5 4 Wt: 163 lb 1.6 oz Consulting Physician: BLAKE MEDICATIONS: TYLENOL, XANAX, LIPITOR, ZOFRAN, PROTONIX HISTORY: 72 YEAR OLD FEMALE WITH COMPLAINTS OF CHEST PAIN. HISTORY OF ACID REFLUX AND HIGH CHOLESTEROL PHYSICIAL EXAMINATION: RESTING B.P.: 143/68 RESTING H.R.: 56 RESTING EKG: SINUS BRADYCARDIA WITH SINUS ARRHYTHMIA PROTOCOL: LEXISCAN EXERCISE TIME: 3:30 B.P. AT PEAK STRESS: 132/75 IMPRESSION: LEXISCAN INJECTED, CARDIOLITE INJECTED PER PROTOCOL. SEE NUCLEAR MEDICINE REPORT. NO SUPRAVENTRICULAR TACHYCARDIA. NO VENTRICULAR TACHYCARDIA. ONE PREMATURE ATRIAL COMPLEX DURING AND ONE POST. CHEST PRESSURE THROUGHOUT.
== END 2017-10-11 17:09 | disposition home or self-care (01) ==
LOC: ER 18:37 → ERHOLD 21:30 → 4TH 22:28
PROVIDERS: ADMIT Hospitalist; ATTEND Hospitalist
PROC: 0DB68ZX Excision of Stomach, Via Natural or Artificial Opening Endoscopic, Diagnostic (ICD-10-PCS; principal; 2017-10-10 14:30)
DX: R07.89 Other chest pain (principal); K29.40 Chronic atrophic gastritis without bleeding; K44.9 Diaphragmatic hernia without obstruction or gangrene; R11.0 Nausea; I10 Essential (primary) hypertension; E11.9 Type 2 diabetes mellitus without complications; K21.9 Gastro-esophageal reflux disease without esophagitis; Z96.652 Presence of left artificial knee joint; Z91.040 Latex allergy status
CPT/HCPCS: 36415 ×2; 43239; 71045; 74177; 78452; 80048 ×2; 80076; 82962; 83735; 83880; 84484 ×3; 85025 ×2; 85610; 87086; 87088; 88305; 88312; 93005; 93017; 96374; 96375; 99285; A9500; G0378 ×2; J2001; J2405 ×3; J2785; J3010; J7030 ×3; Q9967; 81003; 81015

== ENCOUNTER 2018-02-19 07:13 | Inpatient (IN) | payer OTHER ==
[2018-02-17 16:58] LABS: Absolute Lymphocytes (CBC) 1.8 K/uL (0.7-4.9); Absolute Monocytes 0.5 K/uL (0.1-1.3); Basophils % 0.5 % (0-1.3); Eosinophils % 1.2 % (0-4.4); Hematocrit 33.8 % (36.0-45.0); Lymphocytes % 27.8 % (15.3-44.8); MPV 8.5 fL (7.6-11.3); Monocytes % 7.9 % (3.3-12.3); RBC Red Blood Cell Count 4.05 M/uL (3.86-4.86)
[2018-02-17 17:05] LABS: Potassium 3.8 mmol/L (3.5-5.1)
[2018-02-17 17:10] LABS: Bilirubin Direct 0.1 mg/dL (0-0.2); Bilirubin Total 0.3 mg/dL (0.2-1.0); Protein, Total 7.7 g/dL (6.4-8.2)
--- NOTE | 2018-02-17 22:54 | EKG ---
Test Date: 2018-02-17 Test Time: 15:55:57 Tobacco Buyer: ROXANA MEASUREMENT RESULTS: Intervals: Rate: 60 ME: 140 QRSD: 84 QT: 394 QTc: 394 [place]: P: 36 ME: 140 QRS: 48 T: 60 INTERPRETIVE STATEMENTS: Normal sinus rhythm Normal ECG Compared to ECG 10/09/2017 18:42:53 Sinus bradycardia no longer present Electronically Signed On 02-17-18 22:54:01 PRAWN TRAWLER HAND by Emeterio Omalley
--- OUTSIDE RECORDS SUMMARY | 2018-02-19 07:17 | XMS REPORT ---
[...] Status Dosage System Date Date Oscal 500/[address] [facility] 89643258631 500-200 MG-UNIT Active 1 tablet D-3 Orally Once a with food day Latanoprost ND 48090040926 0.005 % Active 1 drop into Ophthalmic Once affected a day eye in the evening Metformin HCl ND 59317657746 500 MG Orally Active 1 tablet Twice a day with meals Simvastatin ND 98326068086 20 MG Orally Active 1 tablet in Once a day the evening Omeprazole ND 26074072759 20 MG Orally Active 1 capsule Once a day Combigan [facility] 27001951656 0.2-0.5 % Active 1 drop into Ophthalmic affected Twice a day eye MiraLax ND 37280165922 - Orally Once a Active 1 packet day mixed with 8 ounces of fluid Tylenol ND 17437596274 325 MG Orally Active 2 tablets every 6 hrs as needed Flonase ND 01135410188 50 MCG/ACT Active 1 spray in Nasally Once a each day nostril Fish Oil ND 87473039512 1000 MG Orally Active 1 capsule Once a day Docusate Sodium ND 54331676880 100 MG Orally Active 1 capsule Once a day as needed Super B Complex ND 0 Active not defined Results No Known Results Summary Purpose eClinicalWorks Submission
--- OUTSIDE RECORDS SUMMARY | 2018-02-19 07:18 | XMS REPORT ---
:1945 Author Organization e[employer]Works Care Team Providers Name Role Phone KuaffmanOlivierh Provider Role Unavailable Allergies, Adverse Reactions, Alerts Substance Reaction Event Type N.K.D.A. Info Not Available Non Drug Allergy Problems Problem Type Condition Code Onset Dates Condition Status Problem Hypertriglyceridemia E78.1 Active Problem GERD (gastroesophageal reflux K21.9 Active disease) Problem Osteopenia M85.80 Active Problem Depression, unspecified depression F32.9 Active type Problem Controlled type 2 diabetes mellitus E11.9 Active without complication, without long-term current use of insulin Problem Microalbuminuria R80.9 Active Problem Allergic rhinitis J30.9 Active Problem Family history of cardiac disorder Z82.49 Active Problem Glaucoma of both eyes, unspecified H40.9 Active glaucoma type Problem 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 Assessment Cough R05 Active Problem Hyperlipidemia, mixed E78.2 Active Problem Family history of colon cancer Z80.0 Active Assessment Acute frontal sinusitis, recurrence J01.10 Active not specified Problem Family history of diabetes mellitus Z83.3 Active Problem Constipation K59.00 Active Medications Medication Code Code Instructions Start End Status Dosage System Date Date Latanoprost [facility] 93691639257 0.005 % Active 1 drop into Ophthalmic Once affected a day eye in the evening Oscal 500/200 [facility] 19272281670 500-200 MG-UNIT Active 1 tablet D-3 Orally Once a with food day Lisinopril ND 97700153561 2.5 MG Orally Sep 25, Active 1 tablet Once a day 2017 Fish Oil ND 81976225628 1000 MG Orally Active 1 capsule Once a day Omeprazole ND 88567262143 40 MG Orally Active 1 capsule Once a day Tylenol ND 07931846122 325 MG Orally Active 2 tablets every 6 hrs as needed MiraLax ND 74652773421 - Orally Once a Active 1 packet day mixed with 8 ounces of fluid Flonase ND 34744562850 50 MCG/ACT Active 1 spray in Nasally Once a each day nostril Augmentin ND 65927258455 875-125 MG Nov 10, Nov 20, Active 1 tablet Orally every 12 2017 2018 hrs Simvastatin [facility] 00775265813 20 MG Orally Active 1 tablet in Once a day the evening Metformin HCl [facility] 36877439135 500 MG Orally Active 1 tablet Twice a day with meals Docusate Sodium ND 96042935070 100 MG Orally Active 1 capsule Once a day as needed Combigan [facility] 22507679157 0.2-0.5 % Active 1 drop into Ophthalmic affected Twice a day eye Super B Complex ND 0 Active not defined Tradjenta [facility] 10373692274 5 MG Orally Sep 25, Active 1 tablet Once a day 2017 Results Name Result Date Reference Range Unit Abnormality Flag FLU TEST ----A Negative [id number] ----B Negative [id number] STREP A RAPID ----Result Negative [id number] Summary Purpose eClinicalWorks Submission
--- OUTSIDE RECORDS SUMMARY | 2018-02-19 07:18 | XMS REPORT ---
[...] Dosage System Date Date Docusate Sodium NDC 94420928447 100 MG Orally Active 1 capsule Once a day as needed Metformin HCl NDC 31851868467 500 MG Orally Active 1 tablet Twice a day with meals Combigan ND 57478045164 0.2-0.5 % Active 1 drop into Ophthalmic affected Twice a day eye Tradjenta [facility] 65105045048 5 MG Orally Sep 25, Active 1 tablet Once a day 2017 Flonase ND 13242555358 50 MCG/ACT Active 1 spray in Nasally Once a each day nostril Oscal 500/200 [facility] 68519170369 500-200 MG-UNIT Active 1 tablet D-3 Orally Once a with food day Lisinopril ND 78465806351 2.5 MG Orally Sep 25, Active 1 tablet Once a day 2017 Omeprazole ND 00894598591 40 MG Orally Active 1 capsule Once a day MiraLax ND 47805161416 - Orally Once a Active 1 packet day mixed with 8 ounces of fluid Tylenol ND 34474895789 325 MG Orally Active 2 tablets every 6 hrs as needed Latanoprost [facility] 70420049490 0.005 % Active 1 drop into Ophthalmic Once affected a day eye in the evening Fish Oil ND 24256873258 1000 MG Orally Active 1 capsule Once a day Simvastatin ND 34580216317 20 MG Orally Active 1 tablet in Once a day the evening Super B Complex ND 0 Active not defined Results No Known Results Summary Purpose eClinicalWorks Submission
--- OUTSIDE RECORDS SUMMARY | 2018-02-19 07:18 | XMS REPORT ---
:1945 Author Organization [employer]Works Care Team Providers Name Role Phone Jamari Soto Provider Role Unavailable Allergies No Known Allergies Problems Problem Type Condition Code Onset Dates Condition Status Problem Osteopenia M85.80 Active Problem Family history of cardiac disorder Z82.49 Active Problem GERD (gastroesophageal reflux K21.9 Active disease) Problem Microalbuminuria R80.9 Active Problem Depression, unspecified depression F32.9 Active type Problem Malignant neoplasm of ascending C18.2 Active colon Problem 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 Problem Allergic rhinitis J30.9 Active Problem Controlled type 2 diabetes mellitus E11.9 Active without complication, without long-term current use of insulin Problem Glaucoma of both eyes, unspecified H40.9 Active glaucoma type Problem Family history of colon cancer Z80.0 Active Problem Family history of diabetes mellitus Z83.3 Active Problem Constipation K59.00 Active Problem Hyperlipidemia, mixed E78.2 Active Problem Hypertriglyceridemia E78.1 Active Medications No Known Medications Results No Known Results Summary Purpose eClinicalWorks Submission
--- OUTSIDE RECORDS SUMMARY | 2018-02-19 07:18 | XMS REPORT ---
:1945 Author Organization [employer]Works Care Team Providers Name Role Phone Jamari Soto Provider Role Unavailable Allergies, Adverse Reactions, Alerts [...] type Problem 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 Problem Hyperlipidemia, mixed E78.2 Active Problem Family history of colon cancer Z80.0 Active Assessment Flu vaccine need Z23 Active Problem Family history of diabetes mellitus Z83.3 Active Problem Constipation K59.00 Active Medications Medication Code Code Instructions Start End Status Dosage System Date Date Lisinopril [facility] 07166819986 2.5 MG Orally Sep 25, Active 1 tablet Once a day 2017 Docusate Sodium [facility] 31223903816 100 MG Orally Active 1 capsule Once a day as needed Metformin HCl [facility] 81194260107 500 MG Orally Active 1 tablet Twice a day with meals Oscal 500/200 [facility] 34478622703 500-200 MG-UNIT Active 1 tablet D-3 Orally Once a with food day Omeprazole ND 36789720393 40 MG Orally Active 1 capsule Once a day Flonase [facility] 29382517713 50 MCG/ACT Active 1 spray in Nasally Once a each day nostril Simvastatin [facility] 81936112158 20 MG Orally Active 1 tablet in Once a day the evening Tradjenta [facility] 08510427177 5 MG Orally Sep 25, Active 1 tablet Once a day 2017 Combigan [facility] 40214051948 0.2-0.5 % Active 1 drop into Ophthalmic affected Twice a day eye Latanoprost [facility] 38722010531 0.005 % Active 1 drop into Ophthalmic Once affected a day eye in the evening Super B Complex NDC 0 Active not defined Fish Oil ND 68684257666 1000 MG Orally Active 1 capsule Once a day MiraLax ND 88346150161 - Orally Once a Active 1 packet day mixed with 8 ounces of fluid Augmentin [facility] 26892214622 875-125 MG Nov 10Nov 20, Active 1 tablet Orally every 12 2017 2018 hrs Tylenol [facility] 95023216333 325 MG Orally Active 2 tablets every 6 hrs as needed Results No Known Results Immunizations Vaccine Administration Date FluAD Nov 20, 2017 Summary Purpose eClinicalWorks Submission
[2018-02-19] MEDS ORDERED: NA CHLORIDE 0.9% 1,000 ML ONE ×4 (07:41→13:55)
[2018-02-19] MEDS ORDERED: CEFAZOLIN 1GM (PREMIX IV) 1 GM/50 ML BAG ONE (07:41)
[2018-02-19] MEDS ORDERED: PROPOFOL 200 MG/20 ML VIAL IV ONE (08:34)
[2018-02-19] MEDS ORDERED: FENTANYL CITR 100 MCG/2 ML ONE ×2 (08:35→12:10)
[2018-02-19] MEDS ORDERED: MIDAZOLAM HCL 2 MG/2 ML INJ ONE (08:35)
[2018-02-19] MEDS ORDERED: LIDOCAINE 2% MPF 5 ML VIAL ONE (08:35)
[2018-02-19] MEDS ORDERED: ROCURONIUM 50 MG/5 ML VIAL IV ONE ×3 (08:35→12:58)
[2018-02-19] MEDS ORDERED: ONDANSETRON 4 MG/2 ML VIAL ONE ×2 (08:51→15:04)
[2018-02-19] MEDS ORDERED: BUPIVACAINE 0.25% PF 30 ML VIAL ONE (09:09)
[2018-02-19] MEDS ORDERED: EPHEDRINE SULF 50 MG/ML VIAL ONE ×2 (09:09→12:50)
[2018-02-19] MEDS ORDERED: BUPIVACA 0.25%/EPI 0.0005% MDV 50 ML VIAL ONE (09:18)
[2018-02-19] MEDS ORDERED: GLYCOPYRROLATE 0.2 MG/ML SYR ONE ×2 (09:36→14:17)
[2018-02-19] MEDS ORDERED: NS 0.9% VIAL 10 ML ONE (12:51)
--- NOTE | 2018-02-19 14:16 | P.OP ---
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
[2018-02-19] MEDS ORDERED: NEOSTIGMINE 1 MG/ML -5 ML SYRINGE ONE (14:17)
[2018-02-19] MEDS ORDERED: NALOXONE 0.4 MG/ML VIAL IV PRN (14:47)
[2018-02-19] MEDS ORDERED: HYDROMORPHONE/PCA 10 MG/50 ML SYR IV PRN (14:47)
[2018-02-19] MEDS: ONDANSETRON 4 MG/2 ML VIAL IV PRN (14:55)
[2018-02-19] MEDS: D5 0.45 NS 1,000 ML IV SCH ×3 (15:00→20:38)
[2018-02-19] MEDS: HYDROMORPHONE HCL 1 MG/ML INJ ONE ×2 (15:46→15:57)
[2018-02-19] MEDS: INSULIN -REGULAR HUMAN 50 UNIT/0.5 ML ML SQ SCH ×2 (16:30→20:38)
[2018-02-19 17:11] VITALS: BMI 27.3
[2018-02-19] MEDS: HYDROCODONE/APAP 7.5/325 MG TAB PO PRN (17:52)
[2018-02-19] MEDS: METRONIDAZOLE 500mg IVPB 500 MG/100 ML BAG IV SCH ×2 (18:00→23:48)
[2018-02-19] MEDS: Levofloxacin500mg IV 500 MG/100 ML BAG IV SCH (19:13)
--- NOTE | 2018-02-20 00:38 | OP ---
Date of Procedure: 02/19/2018 Surgeon: Jim Simental MD, Preoperative Diagnosis: Cecal adenocarcinoma. Postoperative Diagnosis: Cecal adenocarcinoma. Procedures Performed: 1.Laparoscopic right hemicolectomy. 2.Laparoscopic adhesiolysis greater than 3 hours. Anesthesia: General endotracheal plus local. Estimated Blood Loss: Less than 100 cc. Specimen: Right colon specimen. Findings: Significant intraabdominal adhesions. Operative Technique: Laparoscopic. Complications: None. Drains: Urinary catheter. Disposition: Transferred to recovery room in good condition. Procedure In Detail: After informed consent was obtained, the patient was brought to the operating r oom, prepped and draped in the usual sterile fashion. After adequate anesthesia was achieved, the phipps praumbilical area was anesthetized 0.25% Marcaine, sharply incised, and a 5-mm trocar was introduced in the abdomen without evidence of complication. Insufflation was obtained to 15 mmHg at this time. Additional trocar site was chosen in the epigastrium. This was similarly anesthetized and sharply i ncised. A 5-mm trocar was introduced in the abdomen without evidence of complication. The umbilical trocar was then up-sized to a 12-mm under direct visualization without evidence of complication. Ad ditional trocar was chosen in the suprapubic position. This was 5-mm trocar placed under direct visu alization without evidence of complication. Additional trocar was chosen in the left lower quadrant. This was similarly anesthetized and sharply incised. A 5-mm trocar was introduced in the abdomen w ithout evidence of complication. Additional trocar was chosen in the right mid abdomen, which was al so similarly anesthetized and sharply incised. A 5-mm trocar was introduced in the abdomen without e vidence of complication. The patient was then positioned head down, right side up position. The linnette er and the peritoneal structures were inspected for any evidence of metastatic spread of her previous ly diagnosed colonoscopy and pathology confirmed adenocarcinoma of the cecum. There was no obvious m etastatic spread grossly visible on any peritonealized surfaces. I ran the bowel from the ligament o f Treitz to the ileocecal valve, and no additional metastatic foci were noted at this time. The darrin ent was then positioned in the head down, right side up position. Ratcheted grasper was used to gras p the patient's right colon, and the ileocolic vessels were dissected out after scoring the peritoneu m in a medial to lateral fashion. The LigaSure device was then used to help skeletonize the ileocoli c artery and vein. Each of these were individually clipped doubly on the proximal side and singly on the distal side, and the LigaSure device was used to divide these at this time. I then continued th e deep peritoneal to score the peritoneum on the medial to lateral aspect of the peritonealized surfa ce of the mesentery up to the duodenum which was visualized at this time. Dissection continued to re move the colon from the Gerota fascia which was not violated at this time and off its attachments in the above-stated fashion. The right branch of middle colic artery was appreciated, and this was easi ly spared. As this was a cecal colon cancer, an extended right hemicolectomy was not necessary. The refore, I focused on getting just past the hepatic flexure onto the transverse colon. I created a wi ndow next to the right branch of middle colic arcade; and after this window was created, the LigaSure device was used to take the mesentery down and mobilize this aspect of the colon. I then turned my attention back to the terminal ileum as this was a cecal cancer. I took approximately 10 cm of termi nal ileum, small bowel, distal ileum, and created a mesenteric window at this time. The Endo LISBET 35 blue load was fired across this small bowel with good approximation of tissues. I then took the mese ntery of the terminal ileum down toward the confluence of the cecum using the LigaSure device. I the n turned my attention back to the colon at the transverse colon mesenteric window. An Endo LISBET 35 bl ue load was fired across this as well with good approximation of tissues. Two fires were required to get completely across the colon. Good approximation of the tissues was appreciated. I then ensured that the specimen was completely mobilized from Gerota fascia and from the duodenum using blunt diss ection and LigaSure dissection. After the colon was completely mobilized and removed from the mesent yessenia structures, it was placed above the patient's liver. I then grasped and reapproximated and mobi lized the small bowel to come to the midline for an extracorporeal anastomosis. I also ensured that the transverse colon was mobilized appropriately by scoring the peritoneum on the medial lateral aspe cts and taking the omentum in a bivalve type fashion. After the small bowel was brought up, the chelsi tonealized surfaces were also scored to allow for better mobilization. Graspers were prepared at thi s time, and the small bowel and the colon distal anastomosis were grasped, and the colon specimen was grasped as well with a grasper through the middle port. All laparoscopic equipment was then turned off at this time, and the supraumbilical incision was then enlarged to allow for specimen transfer. This was the location where the grasper was placed, and the right colon specimen was to be brought ou t through this area. Prior to this, however, I placed an Felton wound protector with the associated GelPort equipment was brought on the field, and the wound protector was placed into the field, and th e colon was removed in its entirety while protecting and not handling the colon as much as possible. It was brought out easily through the midline wound protected incision. The specimen was then passe d off to the back table for later examination. The proximal and distal aspects of the small bowel an d transverse colon were brought up to the wound and brought out of the wound without tension. No add itional maneuvers were required to bring the anastomotic ends in approximation. As such, an antimese nteric small bowel stitch was placed onto the tenia of the transverse colon, ensuring there was no to rsion or twisting of the colon at this time. I then placed a distal stitch also in a similar fashion on the antimesenteric border of the small bowel to the tenia of the transverse colon. In a side-to- side isoperistaltic manner, I created proximal-distal enterotomies on the transverse colon and the sm all bowel, and an Endo LISBET 35 blue load was fired across this to create a common channel. This was i nspected. Proper hemostasis was achieved this time. There was no spillage at this time. I then reeves d-sewed the common channel using a 2-0 PDS in a canal stitch type fashion, and a second layer of inte rrupted silk Lembert sutures was passed over this. The anastomosis was found to be widely patent and examined at this time, and the area was inspected. Proper hemostasis was achieved at this time. Th e anastomosis was then dropped back into the patient's abdomen, and the GelPort was applied at this t tyra, and reinsufflation was obtained. The abdomen was copiously irrigated multiple times to complete ly dry. The greater omentum was then placed back over the anastomosis which was found to be in good anatomic position without any evidence of spillage. After complete manipulation and submersion, ther e were no bubbles and no evidence of leakage. The anastomosis was wrapped with omentum and placed in the normal anatomic position. The abdomen was then completely irrigated and suctioned once again un til dry. The patient was positioned back into neutral position, and the infraumbilical 10 port was t hen closed with a Kirit-Sarah suture passer with 0 Vicryl in interrupted fashion with good approx imation of tissues. The abdomen was then completely desufflated under direct visualization while galina ing out all trocars, and the GelPort was left in place. The GelPort was then removed, and the Felton wound retractor was removed at this time and sent on the back table as well. The upper midline inci warren for specimen extraction was then closed using a 0 looped PDS in a running fashion with good appr oximation of tissues. All skin incisions were copiously irrigated, and the 10-mm and the upper midli ne incisions were closed with additional 3-0 Vicryl in a deep dermal fashion, and all skin incisions were then copiously irrigated once again and dried and closed with a 4-0 Monocryl in a running fashio n. Dermabond was placed overtop. The patient tolerated the procedure well without evidence of compl ications, transferred to the PACU in good condition. All counts were correct at the end of the case. I then examined the specimen on the back table and found that the cancer was localized to the cecum in the periappendiceal fashion, and adequate specimen appeared to be obtained at this time. I then completed the procedure. JULES/DOROTA Voice ID: [id number] Report ID: [id number]
[2018-02-20 02:39] LABS: Urine Appearance CLEAR; Urine Bilirubin NEGATIVE (NEG); Urine Blood NEGATIVE (NEG); Urine Color YELLOW; Urine Glucose NEGATIVE (NEG); Urine Protein NEGATIVE (NEG); Urine Specific Gravity <=1.005 (1.005-1.030); Urine Urobilinogen 0.2 mg/dL (0.2-1.0)
[2018-02-20 02:51] LABS: Urine Microscopic Reflex NO UMIC
[2018-02-20] MEDS: ONDANSETRON 4 MG/2 ML VIAL IV PRN ×3 (03:05→16:46)
[2018-02-20] MEDS: METRONIDAZOLE 500mg IVPB 500 MG/100 ML BAG IV SCH ×3 (05:21→16:44)
[2018-02-20 06:12] LABS: Absolute Lymphocytes (CBC) 0.7 K/uL (0.7-4.9); Absolute Monocytes 0.5 K/uL (0.1-1.3); Absolute Neutrophil 5.1 K/uL (1.8-8.0); Basophils % 0.1 % (0-1.3); Eosinophils % 0.5 % (0-4.4); Hematocrit 29.6 % (36.0-45.0); Lymphocytes % 10.9 % (15.3-44.8); MPV 8.5 fL (7.6-11.3); Monocytes % 8.5 % (3.3-12.3); RBC Red Blood Cell Count 3.57 M/uL (3.86-4.86)
[2018-02-20 06:15] LABS: Protime INR 1.14
[2018-02-20 06:25] LABS: BUN Blood Urea Nitrogen 6 mg/dL (7-18); Bicarbonate 24 mmol/L (21-32); Glucose Level 193 mg/dL (74-106); Magnesium 1.7 mg/dL (1.8-2.4); Potassium 3.6 mmol/L (3.5-5.1); Sodium Level 139 mmol/L (136-145)
[2018-02-20] MEDS ORDERED: MAGNESIUM SULFATE 1 gm IVPB 1 GM/100 ML BAG IV ONE (06:40)
[2018-02-20] MEDS ORDERED: POTASSIUM CL SA 10 MEQ TAB PO ONE (06:46)
[2018-02-20] MEDS: POTASS/SODIUM PHOSPHATE 1 PKT POWD.PACK PO SCH ×3 (07:38→10:23)
[2018-02-20] MEDS: INSULIN -REGULAR HUMAN 50 UNIT/0.5 ML ML SQ SCH ×4 (08:34→20:54)
[2018-02-20] MEDS ORDERED: MORPHINE 4 MG/ML SYR IV PRN (08:35)
[2018-02-20] MEDS ORDERED: HYDROCODONE/APAP 7.5/325 MG TAB PO PRN (08:35)
[2018-02-20] MEDS: ENOXAPARIN 40 MG/0.4 ML SQ SCH (08:40)
--- NOTE | 2018-02-20 08:44 | P.PN ---
Subjective Date of Service: 02/20/18 Subjective: No new changes (Pain is stable aroudn 5, but she feels more nauseated today, she feels when she takes SENIOR SYSTEMS ENGINEER dilaudid it causes nausea, otherwise it is minimal. No gas, tolerating sips of liquids) Physical Examination - Vital Signs Temperature: 98.6 F Blood Pressure: 140/55 Pulse: 90 Respirations: 16 Pulse Ox (%): 98 - Physical Exam General: Alert, In no apparent distress, Cooperative Respiratory: Normal air movement (IS ~1250) Cardiovascular: No edema, Normal S1 S2 Gastrointestinal: Other (soft, moderate appropriate TTP, mild distention, incisions clean and dry) Musculoskeletal: No swelling Integumentary: No rashes Neurological: Normal speech Urinary: Suggs catheter - Studies Laboratory Data (last 24 hrs) 02/20/18 05:53: WBC 6.4, Hgb 9.9 L, Hct 29.6 L, Plt Count 177 D 02/20/18 05:34: Sodium 139, Potassium 3.6, BUN 6 L, Creatinine 0.64, Glucose 193 H, Phosphorus 2.0 L, Magnesium 1.7 L D 02/20/18 05:34: PT 13.5 H, INR 1.14 Assessment And Plan - Current Problems (Diagnosis) (1) Colon cancer Current Visit: Yes Status: Acute Plan: Neuro: will change pain regime - DC SENIOR SYSTEMS ENGINEER, start IV morphine Q4 prn, increase norco to 2 tabs Q4 CVS: RRR, continue telemetry Pulm: continue incentive spirometry Q15 min, continue SPO2 monitoring, cough and deep breathing Abd: serial exams, continue abdominal binder, await bowel function, nausea likely post op and medicine FEN: continue IV fluids, electrolyte replacement protocol, continue clear liquids ID: will likely DC antibiotics in AM, levaquin, flagyl, DC suggs in AM Endo: continue insulin sliding scale, will consider change to moderate in AM Prophylaxis: SCDs, and lovenox 40mg SQ ordered PT: ambulate with assist, and out of bed Planning: discharge planning for 2-3 days likely (2) S/P right hemicolectomy Current Visit: Yes Status: Acute
[2018-02-20] MEDS: HYDROCODONE/APAP 7.5/325 MG TAB PO PRN ×3 (10:25→22:33)
[2018-02-20] MEDS: D5 0.45 NS 1,000 ML IV SCH ×2 (16:59→20:54)
[2018-02-20] MEDS: Levofloxacin500mg IV 500 MG/100 ML BAG IV SCH (17:51)
[2018-02-21] MEDS: METRONIDAZOLE 500mg IVPB 500 MG/100 ML BAG IV SCH ×2 (00:01→05:12)
[2018-02-21] MEDS: ONDANSETRON 4 MG/2 ML VIAL IV PRN ×3 (03:44→23:53)
[2018-02-21] MEDS: HYDROCODONE/APAP 7.5/325 MG TAB PO PRN ×3 (04:22→23:44)
[2018-02-21] MEDS: D5 0.45 NS 1,000 ML IV SCH ×3 (05:21→23:53)
[2018-02-21 06:35] LABS: Absolute Lymphocytes (CBC) 0.7 K/uL (0.7-4.9); Absolute Monocytes 0.6 K/uL (0.1-1.3); Absolute Neutrophil 5.6 K/uL (1.8-8.0); Basophils % 0.1 % (0-1.3); Eosinophils % 0.9 % (0-4.4); Hematocrit 30.3 % (36.0-45.0); Lymphocytes % 10.3 % (15.3-44.8); MPV 8.1 fL (7.6-11.3); Monocytes % 9.1 % (3.3-12.3); RBC Red Blood Cell Count 3.69 M/uL (3.86-4.86)
[2018-02-21 06:43] LABS: BUN Blood Urea Nitrogen 4 mg/dL (7-18); Bicarbonate 24 mmol/L (21-32); Glucose Level 204 mg/dL (74-106); Phosphorus 1.8 mg/dL (2.5-4.9); Potassium 3.5 mmol/L (3.5-5.1); Sodium Level 140 mmol/L (136-145)
[2018-02-21] MEDS: INSULIN -REGULAR HUMAN 50 UNIT/0.5 ML ML SQ SCH ×4 (07:30→21:44)
[2018-02-21] MEDS ORDERED: POTASSIUM CL SA 10 MEQ TAB PO ONE (09:00)
[2018-02-21] MEDS ORDERED: DIPHENHYDRAMINE 25 MG TAB/CAP PO PRN (09:34)
[2018-02-21] MEDS ORDERED: D50W 25 GM/50 ML SYRINGE IV PRN (09:36)
[2018-02-21] MEDS ORDERED: GLUCAGON 1 MG/VIAL IM PRN (09:36)
--- NOTE | 2018-02-21 09:40 | P.PN ---
Subjective Date of Service: 02/21/18 Subjective: Improving (pain under good control with PO and occasional PRN, no gas, no emesis, mild nausea, increased nasal congestion) Physical Examination - Vital Signs Temperature: 97.6 F Blood Pressure: 131/65 Pulse: 79 Respirations: 18 Pulse Ox (%): 96 - Physical Exam General: Alert, In no apparent distress, Cooperative HEENT: Mucous membr. moist/pink Respiratory: Clear to auscultation bilaterally, Normal air movement Cardiovascular: Normal pulses, Regular rate/rhythm Gastrointestinal: Other (soft, mild distention, appropriate TTP, incisions clean and dry, hypoactive bowel sounds, binder in place) - Studies Laboratory Data (last 24 hrs) 02/21/18 05:56: Sodium 140, Potassium 3.5, BUN 4 L, Creatinine 0.62, Glucose 204 H, Phosphorus 1.8 L, Magnesium 2.0 02/21/18 05:56: WBC 7.0, Hgb 10.4 L, Hct 30.3 L, Plt Count 207 Assessment And Plan - Current Problems (Diagnosis) (1) Colon cancer Current Visit: Yes Status: Acute Plan: Neuro: pain regime - continue IV morphine Q4 prn, increase norco to 2 tabs Q4 CVS: RRR, continue telemetry Pulm: continue incentive spirometry Q15 min, continue SPO2 monitoring, cough and deep breathing, RT consulted, will add claritin, benadryl PRN. humidifier if O2 is needed Abd: serial exams, continue abdominal binder, await bowel function, nausea likely post op and medicine FEN: continue IV fluids, electrolyte replacement protocol, continue clear liquids ID: DC antibiotics levaquin, flagyl, DC suggs Endo: continue insulin sliding scale, change to moderate scale Prophylaxis: SCDs, and lovenox 40mg SQ ordered PT: ambulate with assist, and out of bed Planning: discharge planning for 2-3 days likely (2) S/P right hemicolectomy Current Visit: Yes Status: Acute
[2018-02-21] MEDS: ENOXAPARIN 40 MG/0.4 ML SQ SCH (10:05)
[2018-02-21] MEDS: POTASS/SODIUM PHOSPHATE 1 PKT POWD.PACK PO SCH ×3 (10:05→12:17)
[2018-02-21] MEDS: LORATADINE/PSEUDO 12HR TAB PO SCH (14:47)
[2018-02-22] MEDS ORDERED: SODIUM CHLORIDE 0.9% 10ML INJ IV PRN (02:33)
[2018-02-22] MEDS: PANTOPRAZOLE 40 MG INJ IVP SCH (02:57)
[2018-02-22] MEDS ORDERED: PANTOPRAZOLE 40MG TABLET PO SCH (06:30)
[2018-02-22 07:03] LABS: Absolute Lymphocytes (CBC) 1.1 K/uL (0.7-4.9); Absolute Monocytes 0.7 K/uL (0.1-1.3); Absolute Neutrophil 6.6 K/uL (1.8-8.0); Basophils % 0.3 % (0-1.3); Eosinophils % 1.8 % (0-4.4); Hematocrit 33.2 % (36.0-45.0); Lymphocytes % 13.1 % (15.3-44.8); MPV 7.9 fL (7.6-11.3); RBC Red Blood Cell Count 4.01 M/uL (3.86-4.86)
[2018-02-22 07:18] LABS: Magnesium 1.9 mg/dL (1.8-2.4); Phosphorus 2.9 mg/dL (2.5-4.9); Potassium 3.8 mmol/L (3.5-5.1)
[2018-02-22] MEDS: INSULIN -REGULAR HUMAN 50 UNIT/0.5 ML ML SQ SCH ×4 (08:48→21:23)
[2018-02-22] MEDS: LORATADINE/PSEUDO 12HR TAB PO SCH (08:50)
[2018-02-22] MEDS: ENOXAPARIN 40 MG/0.4 ML SQ SCH (08:51)
--- NOTE | 2018-02-22 10:08 | P.PN ---
Subjective Date of Service: 02/22/18 Subjective: Improving (Patient feels well, passing gas, + BM, pain continues to improve, no emesis, ambulatory) Physical Examination - Vital Signs Temperature: 98.0 F Blood Pressure: 136/68 Pulse: 96 Respirations: 18 Pulse Ox (%): 99 - Physical Exam General: Alert, In no apparent distress, Cooperative HEENT: Mucous membr. moist/pink Respiratory: Clear to auscultation bilaterally Gastrointestinal: Other (soft, mild appropriate TTP, incision clean, ND, binder in place) Integumentary: No rashes Neurological: Normal speech - Studies Laboratory Data (last 24 hrs) 02/22/18 06:42: Sodium 139, Potassium 3.8, BUN 3 L, Creatinine 0.73, Glucose 224 H, Phosphorus 2.9 D, Magnesium 1.9 02/22/18 06:42: WBC 8.6 D, Hgb 11.1 L, Hct 33.2 L, Plt Count 241 Assessment And Plan - Current Problems (Diagnosis) (1) Colon cancer Current Visit: Yes Status: Acute Plan: Neuro: pain regime - continue IV morphine Q4 prn, increase norco to 2 tabs Q4 CVS: RRR, continue telemetry Pulm: continue incentive spirometry Q15 min, continue SPO2 monitoring, cough and deep breathing, RT consulted, will add claritin, benadryl PRN. humidifier if O2 is needed Abd: serial exams, continue abdominal binder, await bowel function, nausea likely post op and medicine FEN: continue IV fluids, electrolyte replacement protocol, soft diet ID: DC antibiotics levaquin, flagyl, DC suggs Endo: continue insulin sliding scale, change to moderate scale Prophylaxis: SCDs, and lovenox 40mg SQ ordered PT: ambulate with assist, and out of bed Planning: discharge planning for 1-2 days likely (2) S/P right hemicolectomy Current Visit: Yes Status: Acute
[2018-02-22] MEDS: HYDROCODONE/APAP 7.5/325 MG TAB PO PRN ×2 (12:09→18:23)
[2018-02-22] MEDS: D5 0.45 NS 1,000 ML IV SCH ×3 (18:23→23:00)
[2018-02-23] MEDS: ONDANSETRON 4 MG/2 ML VIAL IV PRN ×2 (02:20→08:51)
[2018-02-23] MEDS: PANTOPRAZOLE 40 MG INJ IVP SCH (05:49)
[2018-02-23 06:27] LABS: Absolute Monocytes 0.7 K/uL (0.1-1.3); Absolute Neutrophil 5.7 K/uL (1.8-8.0); Basophils % 0.2 % (0-1.3); Hematocrit 30.7 % (36.0-45.0); Lymphocytes % 13.1 % (15.3-44.8); MPV 7.7 fL (7.6-11.3); Magnesium 1.8 mg/dL (1.8-2.4); Monocytes % 8.7 % (3.3-12.3); Phosphorus 2.7 mg/dL (2.5-4.9); Potassium 3.5 mmol/L (3.5-5.1); RBC Red Blood Cell Count 3.73 M/uL (3.86-4.86)
[2018-02-23] MEDS ORDERED: POTASSIUM CL SA 10 MEQ TAB PO ONE (07:31)
[2018-02-23] MEDS ORDERED: MAGNESIUM SULFATE 1 gm IVPB 1 GM/100 ML BAG IV ONE (07:32)
[2018-02-23] MEDS: ENOXAPARIN 40 MG/0.4 ML SQ SCH (08:44)
[2018-02-23] MEDS: INSULIN -REGULAR HUMAN 50 UNIT/0.5 ML ML SQ SCH ×2 (08:45→11:30)
[2018-02-23] MEDS: LORATADINE/PSEUDO 12HR TAB PO SCH (08:45)
[2018-02-23] MEDS: D5 0.45 NS 1,000 ML IV SCH (08:46)
[2018-02-23 10:55] VITALS: O2SAT 97
--- NOTE | 2018-02-23 11:06 | P.DS ---
Admission Date: 02/19/18 Discharge Date: 02/23/18 Disposition: ROUTINE DISCHARGE Discharge Condition: GOOD - Problems (1) Colon cancer Current Visit: Yes Status: Acute (2) S/P right hemicolectomy Current Visit: Yes Status: Acute (3) Malignant neoplasm of right colon Current Visit: Yes Status: Acute Brief History of Present Illness: 72 year old woman who presented with biopsy proven cecal colon cancer Hospital Course: Patient underwent laparoscopic right hemicolectomy with primary anastamosis. She did well after surgery, had return of bowel function after about 3 days, pain continued to improve, had some nausea, and reflux well controlled with meds. Ambulatory in halls. tolerating soft diet well Vital Signs/Physical Exam: Temp Pulse Resp BP Pulse Ox 97.3 F 108 H 18 140/67 98 02/23/18 08:00 02/23/18 08:00 02/23/18 08:00 02/23/18 08:00 02/23/18 08:00 General: Alert, In no apparent distress, Oriented x3, Cooperative HEENT: Mucous membr. moist/pink Respiratory: Clear to auscultation bilaterally, Normal air movement Cardiovascular: No edema, Normal pulses Gastrointestinal: No ascites, No masses, No rebound, No guarding, Other (soft, ND, incisions clean, minimal appropriate TTP near incisions) Musculoskeletal: No clubbing, No swelling, No erythema, No tenderness, No warmth Integumentary: No rashes Neurological: Normal gait, Normal speech Laboratory Data at Discharge: WBC 7.7 K/uL (4.3-10.9) 02/23/18 05:38 Hgb 10.5 g/dL (12.0-15.0) L 02/23/18 05:38 Hct 30.7 % (36.0-45.0) L 02/23/18 05:38 Plt Count 274 K/uL (152-406) 02/23/18 05:38 PT 13.5 SECONDS (9.5-12.5) H 02/20/18 05:34 INR 1.14 02/20/18 05:34 Sodium 140 mmol/L (136-145) 02/23/18 05:38 Potassium 3.5 mmol/L (3.5-5.1) 02/23/18 05:38 BUN 3 mg/dL (7-18) L 02/23/18 05:38 Creatinine 0.66 mg/dL (0.55-1.3) 02/23/18 05:38 Glucose 191 mg/dL (74-106) H 02/23/18 05:38 Phosphorus 2.7 mg/dL (2.5-4.9) 02/23/18 05:38 Magnesium 1.8 mg/dL (1.8-2.4) 02/23/18 05:38 Total Bilirubin 0.3 mg/dL (0.2-1.0) 02/17/18 15:47 AST 11 U/L (15-37) L 02/17/18 15:47 ALT 21 U/L (12-78) 02/17/18 15:47 Alkaline Phosphatase 70 U/L (45-117) 02/17/18 15:47 Home Medications: Acetaminophen [Tylenol] 500 mg PO DAILYPRN PRN 04/25/14 Bimatoprost [Lumigan] 1 drop EACH EYE BEDTIME 04/25/14 Omeprazole [Prilosec] 40 mg PO DAILY 04/25/14 Brimonidine Tartrate/Timolol [Combigan 0.2%-0.5% Eye Drops] 1 drop EACH EYE BID 10/09/17 Linagliptin [Tradjenta] 1 tab PO DAILY 10/09/17 Lisinopril [Zestril] 1 tab PO [id number] 10/09/17 Metformin HCl 1 tab PO BID 10/09/17 Simvastatin 1 tab PO BEDTIME 10/09/17 B-Complex with Vitamin C [Super B Complex-Vitamin C] 1 each PO DAILY 02/17/18 Calcium/FA/Multivits-Min [Viactiv Multi-Vitamin Soft Chw] 1 each PO BID Docosahexanoic AC/Epa [Fish Oil 1,000 MG CAP] 1,000 mg PO BID 02/17/18 Docusate Sodium 100 mg PO DAILYPRN PRN 02/17/18 Ferrous Sulfate [Iron] 325 mg PO BID 02/17/18 Fluticasone Propionate [Aller-Jimbo] 15.8 ml NS DAILY 02/17/18 Inulin/Chromium Picolinate [Fiber Gummies] 2 each PO DAILY 02/17/18 L. Acidophilus/Pectin, [place] [Acidophilus Caplet] 1 each PO DAILY 02/17/18 Loratadine/Pseudoephedrine [Allerclear D-24Hr ER Tablet] 1 each PO DAILYPRN PRN 02/17/18 Pseudoephedrine HCl [Sudafed] 30 mg PO DAILYPRN PRN 02/17/18 Simethicone [Gas Relief] 80 mg PO DAILY 02/17/18 Patient Discharge Instructions: - supplement diet with 4 cans of glucerna diabetic formula per day. - drink gatorade G2 or sugar free power aid daily > 32 oz per day Diet: soft Activity: No lifting more than 10 lbs Followup: Jim Simental MD [ACTIVE - CAN ADMIT] -
[2018-02-23 12:07] VITALS: BP 133/80; TEMP 97.6
== END 2018-02-23 12:55 | disposition home or self-care (01) | DRG 331 ==
LOC: OR 07:13 → 4TH 14:47
PROVIDERS: ADMIT Surgery; ATTEND Surgery
PROC: 0DNF4ZZ Release Right Large Intestine, Percutaneous Endoscopic Approach (ICD-10-PCS; 2018-02-19)
PROC: 0DTF4ZZ Resection of Right Large Intestine, Percutaneous Endoscopic Approach (ICD-10-PCS; principal; 2018-02-19 08:30)
DX: C18.0 Malignant neoplasm of cecum (principal)
CPT/HCPCS: 36415; 80048; 80051; 80076; 81003; 82565; 82962; 83735; 84100; 84520; 85025; 85610; 86850; 86900; 86901; 88307; 88309; 93005; 94760; 97116; 97163; 97530; C9113; J0690; J1170; J1650; J2250; J2405; J2704; J2710; J3010; J3475; J7030

== ENCOUNTER 2018-02-23 23:34 | Inpatient (IN) | payer OTHER ==
--- OUTSIDE RECORDS SUMMARY | 2018-02-23 23:37 | XMS REPORT ---
[...] Dosage System Date Date Docusate Sodium NDC 73926787589 100 MG Orally Active 1 capsule Once a day as needed Metformin HCl NDC 44017422407 500 MG Orally Active 1 tablet Twice a day with meals Combigan ND 83045520057 0.2-0.5 % Active 1 drop into Ophthalmic affected Twice a day eye Tradjenta [facility] 70138442829 5 MG Orally Sep 25, Active 1 tablet Once a day 2017 Flonase ND 26949586718 50 MCG/ACT Active 1 spray in Nasally Once a each day nostril Oscal 500/200 [facility] 02749517598 500-200 MG-UNIT Active 1 tablet D-3 Orally Once a with food day Lisinopril ND 62583064905 2.5 MG Orally Sep 25, Active 1 tablet Once a day 2017 Omeprazole ND 43322068439 40 MG Orally Active 1 capsule Once a day MiraLax ND 46396857380 - Orally Once a Active 1 packet day mixed with 8 ounces of fluid Tylenol ND 43497079936 325 MG Orally Active 2 tablets every 6 hrs as needed Latanoprost [facility] 25245764870 0.005 % Active 1 drop into Ophthalmic Once affected a day eye in the evening Fish Oil ND 19021815534 1000 MG Orally Active 1 capsule Once a day Simvastatin ND 58400920539 20 MG Orally Active 1 tablet in Once a day the evening Super B Complex ND 0 Active not defined Results No Known Results Summary Purpose eClinicalWorks Submission
--- OUTSIDE RECORDS SUMMARY | 2018-02-23 23:37 | XMS REPORT ---
[...] End Status Dosage System Date Date Lisinopril [facility] 00125894777 2.5 MG Orally Sep 25, Active 1 tablet Once a day 2017 Docusate Sodium [facility] 23967563777 100 MG Orally Active 1 capsule Once a day as needed Metformin HCl [facility] 32486837841 500 MG Orally Active 1 tablet Twice a day with meals Oscal 500/200 [facility] 24610149816 500-200 MG-UNIT Active 1 tablet D-3 Orally Once a with food day Omeprazole ND 53416270123 40 MG Orally Active 1 capsule Once a day Flonase [facility] 26737358947 50 MCG/ACT Active 1 spray in Nasally Once a each day nostril Simvastatin [facility] 03137444202 20 MG Orally Active 1 tablet in Once a day the evening Tradjenta [facility] 18817184946 5 MG Orally Sep 25, Active 1 tablet Once a day 2017 Combigan [facility] 32963164360 0.2-0.5 % Active 1 drop into Ophthalmic affected Twice a day eye Latanoprost [facility] 96120813860 0.005 % Active 1 drop into Ophthalmic Once affected a day eye in the evening Super B Complex NDC 0 Active not defined Fish Oil ND 76409479362 1000 MG Orally Active 1 capsule Once a day MiraLax ND 99188052349 - Orally Once a Active 1 packet day mixed with 8 ounces of fluid Augmentin [facility] 71852554678 875-125 MG Nov 10Nov 20, Active 1 tablet Orally every 12 2017 2018 hrs Tylenol [facility] 20799588214 325 MG Orally Active 2 tablets every 6 hrs as needed Results No Known Results Immunizations Vaccine Administration Date FluAD Nov 20, 2017 Summary Purpose eClinicalWorks Submission
--- OUTSIDE RECORDS SUMMARY | 2018-02-23 23:37 | XMS REPORT ---
:1945 Author Organization eClinicalWorks Care Team Providers Name Role Phone KauffmanOlivierh Provider Role Unavailable Allergies, Adverse Reactions, Alerts [...] End Status Dosage System Date Date Latanoprost [facility] 37988247740 0.005 % Active 1 drop into Ophthalmic Once affected a day eye in the evening Oscal 500/200 [facility] 03655739394 500-200 MG-UNIT Active 1 tablet D-3 Orally Once a with food day Lisinopril ND 41989786172 2.5 MG Orally Sep 25, Active 1 tablet Once a day 2017 Fish Oil ND 77963078874 1000 MG Orally Active 1 capsule Once a day Omeprazole ND 11065520320 40 MG Orally Active 1 capsule Once a day Tylenol ND 25699246510 325 MG Orally Active 2 tablets every 6 hrs as needed MiraLax ND 78375300401 - Orally Once a Active 1 packet day mixed with 8 ounces of fluid Flonase ND 40353172238 50 MCG/ACT Active 1 spray in Nasally Once a each day nostril Augmentin ND 89998724574 875-125 MG Nov 10, Nov 20, Active 1 tablet Orally every 12 2017 2018 hrs Simvastatin [facility] 75950909508 20 MG Orally Active 1 tablet in Once a day the evening Metformin HCl [facility] 97532316894 500 MG Orally Active 1 tablet Twice a day with meals Docusate Sodium ND 98345816706 100 MG Orally Active 1 capsule Once a day as needed Combigan [facility] 32678929777 0.2-0.5 % Active 1 drop into Ophthalmic affected Twice a day eye Super B Complex ND 0 Active not defined Tradjenta [facility] 63763276790 5 MG Orally Sep 25, Active 1 tablet Once a day 2017 Results Name Result Date Reference Range Unit Abnormality Flag FLU TEST ----A Negative [id number] ----B Negative [id number] STREP A RAPID ----Result Negative [id number] Summary Purpose eClinicalWorks Submission
--- OUTSIDE RECORDS SUMMARY | 2018-02-23 23:37 | XMS REPORT ---
[...] Status Dosage System Date Date Oscal 500/200 [facility] 21333200068 500-200 MG-UNIT Active 1 tablet D-3 Orally Once a with food day Latanoprost ND 76147066993 0.005 % Active 1 drop into Ophthalmic Once affected a day eye in the evening Metformin HCl ND 82649060740 500 MG Orally Active 1 tablet Twice a day with meals Simvastatin ND 87033369944 20 MG Orally Active 1 tablet in Once a day the evening Omeprazole ND 77658335913 20 MG Orally Active 1 capsule Once a day Combigan [facility] 22743883735 0.2-0.5 % Active 1 drop into Ophthalmic affected Twice a day eye MiraLax ND 92704376717 - Orally Once a Active 1 packet day mixed with 8 ounces of fluid Tylenol ND 44654216794 325 MG Orally Active 2 tablets every 6 hrs as needed Flonase ND 26211414473 50 MCG/ACT Active 1 spray in Nasally Once a each day nostril Fish Oil ND 21048619973 1000 MG Orally Active 1 capsule Once a day Docusate Sodium ND 43819753857 100 MG Orally Active 1 capsule Once a day as needed Super B Complex ND 0 Active not defined Results No Known Results Summary Purpose eClinicalWorks Submission
--- NOTE | 2018-02-24 00:27 | ER ---
Nurse's Notes [facility] Name: Shelby Mccormick Age: 72 yrs Sex: Female : 1945 Arrival Date: 02/23/2018 Time: 23:37 Bed 4 Private MD: Jim Simental Diagnosis: Cyclical vomiting, intractable;Dehydration Presentation: 02/23 23:50 Presenting complaint: Patient states: she had colon resection 02/19 for cancer was bb discharged today but has not been able to hold anything down. Transition of care: patient was not received from another setting of care. Onset of symptoms was February 23, 2018. Risk Assessment: Do you want to hurt yourself or someone else? Patient reports no desire to harm self or others. Initial Sepsis Screen: Does the patient meet any 2 criteria? No. Patient's initial sepsis screen is negative. Does the patient have a suspected source of infection? No. Patient's initial sepsis screen is negative. Care prior to arrival: None. 23:50 Method Of Arrival: Wheelchair bb 23:50 Acuity: GORDON 3 bb Historical: - Allergies: 23:54 No Known Allergies; bb - Home Meds: 23:54 simvastatin 20 mg oral tab 1 tab once daily [Active]; omeprazole 40 mg oral cpDR 1 cap bb once daily [Active]; lisinopril 2.5 mg Oral tab 1 tab once daily [Active]; metformin 500 mg Oral tab 1 tab 2 times per day [Active]; Tradjenta 5 mg oral tab 1 tab once daily [Active]; Lumigan 0.01 % ophthalmic drop [Active]; Combigan 0.2-0.5 % ophthalmic drop 1 drop every 12 hours [Active]; - PMHx: 23:54 acid reflux; High Cholesterol; bb - PSHx: 23:54 Cholecystectomy; Hysterectomy; colon surgery; bb - Immunization history:: Adult Immunizations up to date, Pneumococcal vaccine is up to date, Flu vaccine is up to date. - Social history:: Smoking status: Patient/guardian denies using tobacco. - Ebola Screening: : No symptoms or risks identified at this time. Screenin/15 00:09 Abuse screen: Denies threats or abuse. Nutritional screening: No deficits noted. jd3 Tuberculosis screening: No symptoms or risk factors identified. Fall Risk Ambulatory Aid- None/Bed Rest/Nurse Assist (0 pts). Gait- Normal/Bed Rest/Wheelchair (0 pts) Mental Status- Oriented to own ability (0 pts). Total Ramos Fall Scale indicates No Risk (0-24 pts). Assessment: 00:07 General: Appears in no apparent distress. uncomfortable, Behavior is calm, cooperative, jd3 appropriate for age. Pain: Complains of pain in right upper quadrant and right lower quadrant Quality of pain is described as aching, tender. Neuro: Level of Consciousness is awake, alert, obeys commands, Oriented to person, place, time, situation, Appropriate for age. Cardiovascular: Capillary refill < 3 seconds Patient's skin is warm and dry. Respiratory: Airway is patent Respiratory effort is even, unlabored, Respiratory pattern is regular, symmetrical. GI: Abdomen is round non-distended, Bowel sounds present X 4 quads. Abd is soft Abdomen is tender to palpation in right upper quadrant and right lower quadrant Reports nausea, vomiting, passing gas appropriately. : No signs and/or symptoms were reported regarding the genitourinary system. EENT: No signs and/or symptoms were reported regarding the EENT system. Derm: Skin is intact, Skin is dry, Skin is normal, Skin temperature is warm. Musculoskeletal: Circulation, motion, and sensation intact. Range of motion: intact in all extremities. 01:45 Reassessment: Patient appears in no apparent distress at this time. No changes from jd3 previously documented assessment. Patient and/or family updated on plan of care and expected duration. Pain level reassessed. Patient is alert, oriented x 3, equal unlabored respirations, skin warm/dry/pink. 02:45 Reassessment: Patient appears in no apparent distress at this time. No changes from jd3 previously documented assessment. Patient and/or family updated on plan of care and expected duration. Pain level reassessed. Patient is alert, oriented x 3, equal unlabored respirations, skin warm/dry/pink. 03:42 Reassessment: Patient appears in no apparent distress at this time. No changes from jd3 previously documented assessment. Patient and/or family updated on plan of care and expected duration. Pain level reassessed. Patient is alert, oriented x 3, equal unlabored respirations, skin warm/dry/pink. 05:03 Reassessment: Patient appears in no apparent distress at this time. Patient and/or jd3 family updated on plan of care and expected duration. Pain level reassessed. Patient is alert, oriented x 3, equal unlabored respirations, skin warm/dry/pink. Vital Signs: 02/23 23:54 BP 110 / 78; Pulse 112; Resp 16 S; Temp 99(O); Pulse Ox 100% on R/A; Pain 0/10; bb 02/24 02:52 BP 132 / 70; Pulse 99; Resp 16; Pulse Ox 97% on R/A; mt 03:43 BP 136 / 80; Pulse 76; Resp 17 S; Pulse Ox 100% on R/A; jd3 05:03 BP 129 / 76; Pulse 103; Resp 17 S; Pulse Ox 98% on R/A; jd3 ED Course: 02/23 23:37 Patient arrived in ED. al2 23:38 Jim Simental MD is Private Physician. al2 23:51 Triage completed. bb 23:54 Arm band placed on Patient placed in an exam room, on a stretcher, on pulse oximetry. bb Family accompanied patient. 02/24 00:01 Miguel Elena, CALLUM is Primary Nurse. jd3 00:06 Esau Melendez MD is Attending Physician. tw4 00:09 Patient has correct armband on for positive identification. Placed in gown. Bed in low jd3 position. Call light in reach. Side rails up X 1. Adult w/ patient. 00:24 Jim Simental MD is Hospitalizing Provider. tw4 00:42 Inserted saline lock: 20 gauge in left forearm, using aseptic technique. Blood jd3 collected. 05:01 No provider procedures requiring assistance completed. Patient admitted, IV remains in jd3 place. Administered Medications: 00:53 Drug: NS 0.9% 1000 ml Route: IV; Rate: 1 bolus; Site: left forearm; jd3 04:59 Follow up: Response: No adverse reaction; IV Status: Completed infusion jd3 00:53 Drug: Zofran 4 mg Route: IVP; Site: left forearm; jd3 04:59 Follow up: Response: No adverse reaction jd3 03:15 Drug: Zofran 4 mg Route: IVP; Site: left forearm; jd3 05:01 Follow up: Response: No adverse reaction jd3 Outcome: 00:25 Decision to Hospitalize by Provider. tw4 05:02 Admitted to Med/surg accompanied by nurse, via wheelchair, room 404, with chart, Report jd3 called to Mari NOLEN 05:02 Condition: stable 05:02 Instructed on the need for admit, Demonstrated understanding of instructions. 05:27 Patient left the ED. carlos Signatures: Terra Lua, RN Micheline Reyes mt, Jonathon, RN RN jd3 Love, Angelica al2 Wadley, Terrence, MD MD tw4 Corrections: (The following items were deleted from the chart) 05:01 02:30 Zofran 4 mg IVP in left forearm jcristel jd3
--- NOTE | 2018-02-24 00:27 | EDPHYS ---
Physician Documentation [facility] Name: Shelby Mccormick Age: 72 yrs Sex: Female : 1945 Arrival Date: 02/23/2018 Time: 23:37 Bed 4 Private MD: Jim Simental ED Physician Esau Melendez HPI: 02/24 02:53 This 72 yrs old Female presents to ER via Wheelchair with complaints of tw4 Vomiting, POST SURGERY, ADVISED BY DR TO COME TO ER. 02:53 The patient presents to the emergency department with nausea, vomiting. Onset: The tw4 symptoms/episode began/occurred today. Possible causes: unknown. The symptoms are aggravated by nothing. The symptoms are alleviated by nothing. Associated signs and symptoms: The patient has no apparent associated signs or symptoms. Severity of symptoms: At their worst the symptoms were moderate in the emergency department the symptoms are unchanged. The patient has not experienced similar symptoms in the past. Historical: - Allergies: 02/23 23:54 No Known Allergies; bb - Home Meds: 23:54 simvastatin 20 mg oral tab 1 tab once daily [Active]; omeprazole 40 mg oral cpDR 1 cap bb once daily [Active]; lisinopril 2.5 mg Oral tab 1 tab once daily [Active]; metformin 500 mg Oral tab 1 tab 2 times per day [Active]; Tradjenta 5 mg oral tab 1 tab once daily [Active]; Lumigan 0.01 % ophthalmic drop [Active]; Combigan 0.2-0.5 % ophthalmic drop 1 drop every 12 hours [Active]; - PMHx: 23:54 acid reflux; High Cholesterol; bb - PSHx: 23:54 Cholecystectomy; Hysterectomy; colon surgery; bb - Immunization history:: Adult Immunizations up to date, Pneumococcal vaccine is up to date, Flu vaccine is up to date. - Social history:: Smoking status: Patient/guardian denies using tobacco. - Ebola Screening: : No symptoms or risks identified at this time. ROS: 02/24 02:53 Constitutional: Negative for fever, chills, and weight loss, Eyes: Negative for injury, tw4 pain, redness, and discharge, Cardiovascular: Negative for chest pain, palpitations, and edema, Respiratory: Negative for shortness of breath, cough, wheezing, and pleuritic chest pain, Abdomen/GI: Negative for abdominal pain, nausea, vomiting, diarrhea, and constipation, Back: Negative for injury and pain, MS/Extremity: Negative for injury and deformity, Skin: Negative for injury, rash, and discoloration, Neuro: Negative for headache, weakness, numbness, tingling, and seizure. Exam: 02:53 Constitutional: This is a well developed, well nourished patient who is awake, alert, tw4 and in no acute distress. Head/Face: Normocephalic, atraumatic. Cardiovascular: Regular rate and rhythm with a normal S1 and S2. No gallops, murmurs, or rubs. Normal PMI, no JVD. No pulse deficits. Respiratory: Lungs have equal breath sounds bilaterally, clear to auscultation and percussion. No rales, rhonchi or wheezes noted. No increased work of breathing, no retractions or nasal flaring. Abdomen/GI: Soft, non-tender, with normal bowel sounds. No distension or tympany. No guarding or rebound. No evidence of tenderness throughout. Back: No spinal tenderness. No costovertebral tenderness. Full range of motion. MS/ Extremity: Pulses equal, no cyanosis. Neurovascular intact. Full, normal range of motion. Neuro: Awake and alert, GCS 15, oriented to person, place, time, and situation. Cranial nerves II-XII grossly intact. Motor strength 5/5 in all extremities. Sensory grossly intact. Cerebellar exam normal. Normal gait. Vital Signs: 02/23 23:54 BP 110 / 78; Pulse 112; Resp 16 S; Temp 99(O); Pulse Ox 100% on R/A; Pain 0/10; bb 02/24 02:52 BP 132 / 70; Pulse 99; Resp 16; Pulse Ox 97% on R/A; mt 03:43 BP 136 / 80; Pulse 76; Resp 17 S; Pulse Ox 100% on R/A; jd3 05:03 BP 129 / 76; Pulse 103; Resp 17 S; Pulse Ox 98% on R/A; jd3 MDM: 00:06 Patient medically screened. tw4 00:21 Data reviewed: vital signs, nurses notes. tw4 03:04 Differential diagnosis: Nonspecific abd pain, gastritis. Counseling: I had a detailed tw4 discussion with the patient and/or guardian regarding: the historical points, exam findings, and any diagnostic results supporting the discharge/admit diagnosis. Special discussion: Based on the patient's history, exam and DX evaluation, there is no indication for emergent intervention or inpatient TX. It is understood by the patient/guardian that if the SXs persist or worsen they need to return immediately for re-evaluation. 04:21 Data interpreted: Pulse oximetry: Interpretation: normal. Physician consultation: Jim Simental MD regarding admission, and will see patient in inpatient room. 02/24 00:21 Order name: CBC with Diff; Complete Time: 02:52 02/24 02:53 Interpretation: Normal except: WBC 9.3; HGB 11.3; HCT 32.8; PLT 329; RDW 18.8; AZUL% tw4 83.8; LYM% 6.2; LYMA 0.6. 02/24 00:21 Order name: CMP; Complete Time: 02:52 [facility] 02/24 02:52 Interpretation: Normal except: GLUC 195. [facility] 02/24 00:21 Order name: Basic Metabolic Panel [facility] 02/24 00:21 Order name: CBC with Diff 02/24 00:21 Order name: Creatinine for Radiology 02/24 00:21 Order name: Hepatic Function; Complete Time: 02:17 [facility] 02/24 00:21 Order name: Lipase [facility] 02/24 03:04 Order name: Basic Metabolic Panel [facility] 02/24 03:04 Order name: Basic Metabolic Panel [facility] 02/24 03:04 Order name: CBC with Automated Diff [facility] 02/24 03:04 Order name: CBC with Automated Diff [facility] 02/24 03:04 Order name: Lipase [facility] 02/24 03:04 Order name: Lipase [facility] 02/24 03:04 Order name: Liver (Hepatic) Function [facility] 02/24 00:21 Order name: IV Saline Lock; Complete Time: 00:52 [facility] 02/24 00:21 Order name: Labs collected and sent; Complete Time: 00:52 [facility] 02/24 03:04 Order name: NPO [facility] 02/24 03:04 Order name: Liver (Hepatic) Function EDND Administered Medications: 00:53 Drug: NS 0.9% 1000 ml Route: IV; Rate: 1 bolus; Site: left forearm; jd3 04:59 Follow up: Response: No adverse reaction; IV Status: Completed infusion jd3 00:53 Drug: Zofran 4 mg Route: IVP; Site: left forearm; jd3 04:59 Follow up: Response: No adverse reaction jd3 03:15 Drug: Zofran 4 mg Route: IVP; Site: left forearm; jd3 05:01 Follow up: Response: No adverse reaction jd3 Disposition: 02/24/18 00:25 Hospitalization ordered by Jim Simental for Inpatient Admission. Preliminary diagnosis are Cyclical vomiting, intractable, Dehydration. - Bed requested for Telemetry/MedSurg (Inpatient). - Status is Inpatient Admission. jd3 - Condition is Stable. - Problem is new. - Symptoms have improved. UTI on Admission? No Signatures: Dispatcher [employer] EDTerra Christianson RN RN bb Garcia, Cindy RN Miguel Arreola RN RN jd3 Wadley, Terrence, MD MD tw4 Corrections: (The following items were deleted from the chart) 02:53 02:52 Normal except: WBC 9.3; HGB 11.3; HCT 32.8; PLT 329. tw4 tw4 04:44 00:25 Hospitalization Ordered by Jim Simental MD for Inpatient Admission. Preliminary cg diagnosis is Cyclical vomiting, intractable; Dehydration. Bed requested for Telemetry/MedSurg (Inpatient). Status is Inpatient Admission. Condition is Stable. Problem is new. Symptoms have improved. UTI on Admission? No. tw4 05:27 04:44 02/24/2018 00:25 Hospitalization Ordered by Jim Simental MD for Inpatient jd3 Admission. Preliminary diagnosis is Cyclical vomiting, intractable; Dehydration. Bed requested for Telemetry/MedSurg (Inpatient). Status is Inpatient Admission. Condition is Stable. Problem is new. Symptoms have improved. UTI on Admission? No. cg
[2018-02-24] MEDS ORDERED: ONDANSETRON 4 MG/2 ML VIAL ONE ×2 (00:56→03:12)
[2018-02-24] MEDS ORDERED: NA CHLORIDE 0.9% 1,000 ML ONE (00:56)
[2018-02-24 01:06] LABS: Absolute Lymphocytes (CBC) 0.6 K/uL (0.7-4.9); Absolute Monocytes 0.8 K/uL (0.1-1.3); Absolute Neutrophil 7.8 K/uL (1.8-8.0); Basophils % 0.2 % (0-1.3); Eosinophils % 1.3 % (0-4.4); Hematocrit 32.8 % (36.0-45.0); Lymphocytes % 6.2 % (15.3-44.8); MPV 7.7 fL (7.6-11.3); Monocytes % 8.5 % (3.3-12.3); RBC Red Blood Cell Count 3.99 M/uL (3.86-4.86)
[2018-02-24 01:14] LABS: Albumin 3.1 g/dL (3.4-5.0); Bilirubin Direct 0.2 mg/dL (0-0.2); Bilirubin Total 0.6 mg/dL (0.2-1.0); Potassium 3.9 mmol/L (3.5-5.1); Protein, Total 7.2 g/dL (6.4-8.2)
[2018-02-24] MEDS ORDERED: MORPHINE 4 MG/ML SYR IV PRN (02:59)
[2018-02-24] MEDS ORDERED: ACETAMINOPHEN 500 MG TAB PO PRN (02:59)
[2018-02-24] MEDS ORDERED: ONDANSETRON 4 MG/2 ML VIAL IV PRN (02:59)
[2018-02-24] MEDS ORDERED: D5 0.45 NS 1,000 ML IV SCH (03:00)
[2018-02-24 05:40] VITALS: BMI 28.2
[2018-02-24] MEDS ORDERED: HYDROCODONE/APAP 7.5/325 MG TAB PO PRN (08:30)
[2018-02-24] MEDS ORDERED: D50W 25 GM/50 ML SYRINGE IV PRN (08:32)
[2018-02-24] MEDS ORDERED: GLUCAGON 1 MG/VIAL IM PRN (08:32)
[2018-02-24] MEDS: D5.45NS W/KCL 20MEQ 1,000 ML IV SCH ×4 (09:00→23:47)
[2018-02-24] MEDS: PROMETHAZINE 25 MG/ML VIAL IV PRN ×2 (09:49→18:02)
--- NOTE | 2018-02-24 09:51 | RAD REPORT ---
EXAM DESCRIPTION: RAD - Abdomen Acute Series - 02/24/2018 9:41 am CLINICAL HISTORY: vomiting SBO COMPARISON: Chest Single View dated 10/09/2017; CHEST PA AND LAT 2 VIEW dated 09/03/2013; CHEST PA AND LAT 2 VIEW dated 06/27/2010; Chest Abdomen Pelvis W Cont dated 01/19/2018 FINDINGS: Linear scarring is present in the right mid lung. The lungs are otherwise emphysematous bu t clear. No subdiaphragmatic free air seen. The heart is normal in size. Multiple dilated small bowel loops are present in the central abdomen. This is compatible with a mode rate mechanical small-bowel obstruction. Cholecystectomy clips are seen. Mild levoscoliosis of the judith mbar spine. IMPRESSION: Moderate mechanical small-bowel obstruction is present.
[2018-02-24] MEDS: ENOXAPARIN 40 MG/0.4 ML SQ SCH (09:53)
[2018-02-24 10:52] LABS: Urine Appearance CLEAR; Urine Bilirubin NEGATIVE (NEG); Urine Blood NEGATIVE (NEG); Urine Color YELLOW; Urine Glucose 1+ (NEG); Urine Protein NEGATIVE (NEG); Urine Urobilinogen 0.2 mg/dL (0.2-1.0); Urine pH 6.5 (5.0-7.0)
[2018-02-24 10:54] LABS: Urine Microscopic Reflex NO UMIC
[2018-02-24] MEDS ORDERED: INSULIN -REGULAR HUMAN 50 UNIT/0.5 ML ML SQ SCH (11:30)
[2018-02-24] MEDS: INSULIN -REGULAR HUMAN 50 UNIT/0.5 ML ML SQ SCH ×3 (12:19→21:40)
[2018-02-24] MEDS ORDERED: POTASSIUM CL SA 10 MEQ TAB PO ONE (16:00)
[2018-02-24] MEDS: PANTOPRAZOLE 40MG TABLET PO SCH (16:35)
--- NOTE | 2018-02-24 19:35 | HP ---
Date of Admission: 02/24/2018 Brief History Of Present Illness: The patient is a 72-year-old female, who was discharged yesterday from the hospital status post laparoscopic right hemicolectomy and primary anastomosis with a history of right-sided colon cancer, who was discharged yesterday, went home, and started having p rogressive intractable nausea with any p.o. intake. She was doing well in the hospital up to this po int, tolerating p.o. with minimal nausea, but her nausea got significantly worse over the course of y esterday, and she felt that she could not keep any p.o. down and as such, I advised her to return to the ER with the above-stated complaints. Past Medical History: Significant for acid reflux, high cholesterol, right-sided colon cancer, esoph agitis, diabetes, GERD. Past Surgical History: Includes hysterectomy, cholecystectomy, right hemicolectomy, rectocele repair , cystocele repair, left total knee replacement, C3 through 5 diskectomy, carpal tunnel surgery. Allergies: NO KNOWN DRUG ALLERGIES. Home Medications: Include simvastatin, omeprazole, lisinopril, metformin, Tradjenta, Lumigan, Combig an. Social History: Reviewed, noncontributory. Family History: Reviewed, noncontributory. Review of Systems: Other than nausea, the patient has no other complaints. Her pain is 0 at the majority of the time an d has been getting improved since her discharge. She feels her abdominal distention has almost compl etely gone. She is having bowel function, passing gas, and having bowel movements. She was tolerati ng liquids in the hospital, but had waves of nausea, which hit her after she arrived home. Physical Examination: Vital Signs: At the time of my examination, her BMI is 28.2, blood pressure 144/72, pulse is 103, re spiratory rate 20, temperature 97.1. General: She is awake, alert, and oriented. Psychiatric: She is appropriate and conversive. HEENT: She is normocephalic. Sclerae icteric. Mucous membranes are moist. Oropharynx clear. Neck: Supple. No JVD. Chest: Normal expansion and excursion. Cardiovascular: Tachycardia, otherwise regular rhythm. Pulmonary: Clear to auscultation bilaterally. Abdomen: Soft. Mild appropriate tenderness to palpation. No distention. Incisions are clean and d ry. No rebound. No guarding. No peritoneal signs. Abdominal binder was removed, but is generally in place. Extremities: No clubbing, cyanosis, or edema. Skin: Warm and dry. Laboratory Data: White blood count of 9.3, hemoglobin is 11.3 and hematocrit of 32.8, platelet count is 329, neutrophils 83%. Sodium 136, potassium 3.9, chloride 102, carbon dioxide 27, BUN 8, creatin ine 0.6, glucose is 195, total bilirubin 0.6, direct component 0.2, AST 13, ALT 19, alkaline phosphat ase is 59. Her lipase is 64. Assessment/plan: This is a 72-year-old female who is status post laparoscopic right hemicolectomy fo r cecal colon cancer with intractable nausea. 1.Admit. IV fluid hydration. 2.Start sips of clear liquids. 3.Abdominal x-ray. 4.Ambulate. 5.Incentive spirometry. 6.Continue medical management. 7.Electrolyte replacement protocol. 8.We will modify her nausea regimen. I think this may be related to an ileus pattern more than anyt kaveh else, and she does have a history of nausea in the past. We will see if the antiemetics get bet ter control by changing their regimen and giving the patient more time to heal from surgery. I have explained the risks, benefits, and alternatives to above-stated plan. The patient agrees to proceed as indicated. JULES/DOROTA Voice ID: [id number]
[2018-02-25] MEDS: PROMETHAZINE 25 MG/ML VIAL IV PRN (00:36)
[2018-02-25 06:16] LABS: Absolute Lymphocytes (CBC) 0.8 K/uL (0.7-4.9); Absolute Monocytes 0.6 K/uL (0.1-1.3); Absolute Neutrophil 3.4 K/uL (1.8-8.0); Basophils % 0.3 % (0-1.3); Eosinophils % 4.8 % (0-4.4); Hematocrit 28.2 % (36.0-45.0); Lymphocytes % 15.7 % (15.3-44.8); MPV 7.1 fL (7.6-11.3); Monocytes % 12.5 % (3.3-12.3); RBC Red Blood Cell Count 3.43 M/uL (3.86-4.86)
[2018-02-25 06:38] LABS: ALT/SGPT 24 U/L (12-78); AST/SGOT 26 U/L (15-37); Albumin 2.7 g/dL (3.4-5.0); Alkaline Phosphatase 54 U/L (45-117); BUN Blood Urea Nitrogen 6 mg/dL (7-18); Bicarbonate 27 mmol/L (21-32); Bilirubin Direct 0.1 mg/dL (0-0.2); Bilirubin Total 0.4 mg/dL (0.2-1.0); Glucose Level 164 mg/dL (74-106); Lipase 61 U/L (73-393); Potassium 4.2 mmol/L (3.5-5.1); Sodium Level 140 mmol/L (136-145)
[2018-02-25] MEDS: INSULIN -REGULAR HUMAN 50 UNIT/0.5 ML ML SQ SCH ×4 (08:02→21:42)
[2018-02-25] MEDS: PANTOPRAZOLE 40MG TABLET PO SCH ×2 (08:02→16:27)
[2018-02-25] MEDS: ENOXAPARIN 40 MG/0.4 ML SQ SCH (08:03)
[2018-02-25] MEDS: D5.45NS W/KCL 20MEQ 1,000 ML IV SCH ×2 (08:47→17:33)
--- NOTE | 2018-02-25 09:10 | P.PN ---
Subjective Date of Service: 02/25/18 Subjective: Improving (Patient states she had one episode of emesis yesterday, but it has now completely resolved, she had multiple bowel movements, some were large, no pain) Physical Examination - Vital Signs Temperature: 97.1 F Blood Pressure: 119/61 Pulse: 90 Respirations: 18 Pulse Ox (%): 99 - Physical Exam General: Alert, In no apparent distress, Cooperative HEENT: Mucous membr. moist/pink Respiratory: Clear to auscultation bilaterally Gastrointestinal: Soft and benign, Non-distended, No ascites, No masses, No rebound, No guarding Neurological: Normal speech Assessment And Plan - Current Problems (Diagnosis) (1) Malignant neoplasm of right colon Current Visit: No Status: Acute Plan: -advance diet to full liquid - serial exams - recheck labs in AM - continue to monitor bowel function
[2018-02-25] MEDS ORDERED: LORATADINE/PSEUDO 12HR TAB PO PRN (15:36)
[2018-02-26 04:28] LABS: Absolute Lymphocytes (CBC) 1.3 K/uL (0.7-4.9); Absolute Monocytes 0.7 K/uL (0.1-1.3); Absolute Neutrophil 3.6 K/uL (1.8-8.0); Basophils % 0.4 % (0-1.3); Eosinophils % 3.6 % (0-4.4); Hematocrit 30.8 % (36.0-45.0); Lymphocytes % 21.8 % (15.3-44.8); MPV 7.2 fL (7.6-11.3); Monocytes % 12.6 % (3.3-12.3); RBC Red Blood Cell Count 3.71 M/uL (3.86-4.86)
[2018-02-26 04:31] LABS: BUN Blood Urea Nitrogen 6 mg/dL (7-18); Bicarbonate 25 mmol/L (21-32); Glucose Level 144 mg/dL (74-106); Magnesium 2.1 mg/dL (1.8-2.4); Phosphorus 3.3 mg/dL (2.5-4.9); Sodium Level 140 mmol/L (136-145)
[2018-02-26] MEDS: INSULIN -REGULAR HUMAN 50 UNIT/0.5 ML ML SQ SCH ×2 (07:30→11:30)
--- NOTE | 2018-02-26 08:43 | P.DS ---
Admission Date: 02/24/18 Discharge Date: 02/26/18 Disposition: ROUTINE DISCHARGE Discharge Condition: GOOD Reason for Admission: Nausea and emesis after discharge s/p laparoscopic Right hemicolectomy Procedures: none - Problems (1) Malignant neoplasm of right colon Onset Date: 02/25/18 Current Visit: No Status: Acute Brief History of Present Illness: Patient was admitted due to nausea after going home s/p laparoscopic right hemicolectomy for cecal adenocarcinoma Hospital Course: Patient had an initial bout of emesis, Abdominal xray was performed which was read as possible obstruction, but I read as ileus pattern due to clinical course - she improved, and nausea completely resolved, she was requesting soft diet, tolerated well, no pain, no bloating, having multiple loose bowel movements, she could observe some of her pills in toilet. She feels well, ambulatory Vital Signs/Physical Exam: Temp Pulse Resp BP Pulse Ox 98.1 F 97 H 18 140/66 99 02/26/18 03:49 02/26/18 03:49 02/26/18 03:49 02/26/18 03:49 02/26/18 03:49 General: Alert, In no apparent distress, Cooperative Neck: Supple Respiratory: Clear to auscultation bilaterally, Normal air movement Cardiovascular: No edema, Normal pulses, Regular rate/rhythm, Normal S1 S2 Gastrointestinal: Soft and benign, Non-distended, No ascites, No tenderness, No masses, No guarding, Other (incisions clean and dry) Musculoskeletal: No clubbing, No swelling Integumentary: No rashes, No breakdown, No significant lesion, No tenderness/ swelling, No erythema Neurological: Normal gait, Normal speech Laboratory Data at Discharge: WBC 5.8 K/uL (4.3-10.9) D 02/26/18 03:50 Hgb 10.3 g/dL (12.0-15.0) L 02/26/18 03:50 Hct 30.8 % (36.0-45.0) L 02/26/18 03:50 Plt Count 290 K/uL (152-406) 02/26/18 03:50 Sodium 140 mmol/L (136-145) 02/26/18 03:50 Potassium 4.0 mmol/L (3.5-5.1) 02/26/18 03:50 BUN 6 mg/dL (7-18) L 02/26/18 03:50 Creatinine 0.64 mg/dL (0.55-1.3) 02/26/18 03:50 Glucose 144 mg/dL (74-106) H 02/26/18 03:50 Phosphorus 3.3 mg/dL (2.5-4.9) 02/26/18 03:50 Magnesium 2.1 mg/dL (1.8-2.4) 02/26/18 03:50 Total Bilirubin 0.4 mg/dL (0.2-1.0) 02/25/18 05:43 AST 26 U/L (15-37) 02/25/18 05:43 ALT 24 U/L (12-78) 02/25/18 05:43 Alkaline Phosphatase 54 U/L (45-117) 02/25/18 05:43 Lipase 61 U/L (73-393) L 02/25/18 05:43 Home Medications: Acetaminophen [Tylenol] 500 mg PO DAILYPRN PRN 04/25/14 Bimatoprost [Lumigan] 1 drop EACH EYE BEDTIME 04/25/14 Omeprazole [Prilosec] 40 mg PO DAILY 04/25/14 Brimonidine Tartrate/Timolol [Combigan 0.2%-0.5% Eye Drops] 1 drop EACH EYE BID 10/09/17 Linagliptin [Tradjenta] 1 tab PO DAILY 10/09/17 Lisinopril [Zestril] 1 tab PO [id number] 10/09/17 Metformin HCl 1 tab PO BID 10/09/17 Simvastatin 1 tab PO BEDTIME 10/09/17 B-Complex with Vitamin C [Super B Complex-Vitamin C] 1 tab PO DAILY 02/17/18 Calcium/FA/Multivits-Min [Viactiv Multi-Vitamin Soft Chw] 1 each PO BID Docosahexanoic AC/Epa [Fish Oil 1,000 MG CAP] 1,000 mg PO BID 02/17/18 Docusate Sodium 100 mg PO DAILYPRN PRN 02/17/18 Ferrous Sulfate [Iron] 325 mg PO BID 02/17/18 Fluticasone Propionate [Aller-Jimbo] 15.8 ml NS DAILY 02/17/18 Inulin/Chromium Picolinate [Fiber Gummies] 2 tab PO DAILY 02/17/18 L. Acidophilus/Pectin, [place] [Acidophilus Caplet] 1 tab PO DAILY 02/17/18 Loratadine/Pseudoephedrine [Allerclear D-24Hr ER Tablet] 1 each PO DAILYPRN PRN 02/17/18 Pseudoephedrine HCl [Sudafed] 30 mg PO DAILYPRN PRN 02/17/18 Simethicone [Gas Relief] 80 mg PO DAILY PRN 02/17/18 Hydrocodone 7.5/APAP 325 [Pinson 7.5/325 mg] 1 tab PO Q6H PRN #30 tab 02/23/18 Patient Discharge Instructions: - Follow all previous discharge instructions, Rx , and incision care Diet: Regular Activity: No lifting more than 10 lbs Followup: Jim Simental MD [Primary Care Provider] -
[2018-02-26 08:53] VITALS: BP 127/71; TEMP 99
[2018-02-26] MEDS: ENOXAPARIN 40 MG/0.4 ML SQ SCH (09:12)
[2018-02-26] MEDS: PANTOPRAZOLE 40MG TABLET PO SCH (09:12)
[2018-02-26 10:59] VITALS: O2SAT 96
[2018-02-26] MEDS: D5.45NS W/KCL 20MEQ 1,000 ML IV SCH (11:00)
== END 2018-02-26 12:18 | disposition home or self-care (01) | DRG 389 ==
LOC: ER 23:34 → ERHOLD 02-24 03:01 → 4TH 02-24 05:04
PROVIDERS: ADMIT Surgery; ATTEND Surgery
DX: K56.7 Ileus, unspecified (principal); C18.2 Malignant neoplasm of ascending colon; K91.0 Vomiting following gastrointestinal surgery; K21.0 Gastro-esophageal reflux disease with esophagitis; E78.00 Pure hypercholesterolemia, unspecified; Z90.49 Acquired absence of other specified parts of digestive tract; E11.9 Type 2 diabetes mellitus without complications; Z79.84 Long term (current) use of oral hypoglycemic drugs
CPT/HCPCS: 36415; 74022; 80048; 80053; 80076; 81003; 82248; 82962; 83690; 83735; 84100; 85025; 96361; 96374; 97116; 97163; 97530; 99285; J1650; J2405; J2550; J7030

== ENCOUNTER 2018-08-19 15:53 | Emergency (ER) | payer OTHER ==
--- OUTSIDE RECORDS SUMMARY | 2018-08-19 15:55 | XMS REPORT ---
[...] End Status Dosage System Date Date Latanoprost [facility] 91475504062 0.005 % Active 1 drop into Ophthalmic Once affected a day eye in the evening Oscal 500/200 [facility] 53446509098 500-200 MG-UNIT Active 1 tablet D-3 Orally Once a with food day Lisinopril ND 36100431223 2.5 MG Orally Sep 25, Active 1 tablet Once a day 2017 Fish Oil ND 01204187707 1000 MG Orally Active 1 capsule Once a day Omeprazole ND 08264016374 40 MG Orally Active 1 capsule Once a day Tylenol ND 42723674886 325 MG Orally Active 2 tablets every 6 hrs as needed MiraLax ND 25679045235 - Orally Once a Active 1 packet day mixed with 8 ounces of fluid Flonase ND 93815439593 50 MCG/ACT Active 1 spray in Nasally Once a each day nostril Augmentin ND 75087180564 875-125 MG Nov 10, Nov 20, Active 1 tablet Orally every 12 2017 2018 hrs Simvastatin [facility] 02527262260 20 MG Orally Active 1 tablet in Once a day the evening Metformin HCl [facility] 49993079039 500 MG Orally Active 1 tablet Twice a day with meals Docusate Sodium ND 02668742073 100 MG Orally Active 1 capsule Once a day as needed Combigan [facility] 63087772212 0.2-0.5 % Active 1 drop into Ophthalmic affected Twice a day eye Super B Complex ND 0 Active not defined Tradjenta [facility] 19784831000 5 MG Orally Sep 25, Active 1 tablet Once a day 2017 Results Name Result Date Reference Range Unit Abnormality Flag FLU TEST ----A Negative [id number] ----B Negative [id number] STREP A RAPID ----Result Negative [id number] Summary Purpose eClinicalWorks Submission
--- OUTSIDE RECORDS SUMMARY | 2018-08-19 15:55 | XMS REPORT ---
[...] Dosage System Date Date Docusate Sodium NDC 69484433945 100 MG Orally Active 1 capsule Once a day as needed Metformin HCl NDC 05273492505 500 MG Orally Active 1 tablet Twice a day with meals Combigan ND 24790405517 0.2-0.5 % Active 1 drop into Ophthalmic affected Twice a day eye Tradjenta [facility] 94006127404 5 MG Orally Sep 25, Active 1 tablet Once a day 2017 Flonase ND 75494041709 50 MCG/ACT Active 1 spray in Nasally Once a each day nostril Oscal 500/200 [facility] 93680705916 500-200 MG-UNIT Active 1 tablet D-3 Orally Once a with food day Lisinopril ND 68106325798 2.5 MG Orally Sep 25, Active 1 tablet Once a day 2017 Omeprazole ND 38861130578 40 MG Orally Active 1 capsule Once a day MiraLax ND 20252839030 - Orally Once a Active 1 packet day mixed with 8 ounces of fluid Tylenol ND 30890501620 325 MG Orally Active 2 tablets every 6 hrs as needed Latanoprost [facility] 51386869559 0.005 % Active 1 drop into Ophthalmic Once affected a day eye in the evening Fish Oil ND 54618234797 1000 MG Orally Active 1 capsule Once a day Simvastatin ND 79107720308 20 MG Orally Active 1 tablet in Once a day the evening Super B Complex ND 0 Active not defined Results No Known Results Summary Purpose eClinicalWorks Submission
--- OUTSIDE RECORDS SUMMARY | 2018-08-19 15:56 | XMS REPORT ---
:1945 Author Organization eClinicalWorks Care Team Providers Name Role Phone Jim Simental Provider Role Unavailable Allergies, Adverse Reactions, Alerts [...] eyes, unspecified H40.9 Active glaucoma type Assessment Malignant neoplasm of ascending C18.2 Active colon Problem Family history of colon cancer Z80.0 Active Problem Family history of diabetes mellitus Z83.3 Active Problem Constipation K59.00 Active Problem Hyperlipidemia, mixed E78.2 Active Problem Hypertriglyceridemia E78.1 Active Medications Medication Code Code Instructions Start End Status Dosage System Date Date Metformin HCl [facility] 89356308025 500 MG Orally Active 1 tablet Twice a day with meals Tradjenta [facility] 71118734226 5 MG Orally Active 1 tablet Once a day Docusate Sodium ND 75713797425 100 MG Orally Active 1 capsule Once a day as needed MiraLax [facility] 22745393451 - Orally Once a Active 1 packet day mixed with 8 ounces of fluid Oscal 500/200 [facility] 81581113696 500-200 MG-UNIT Active 1 tablet D-3 Orally Once a with food day Simvastatin ND 29942254490 20 MG Orally Active 1 tablet in Once a day the evening Fish Oil ND 00360810567 1000 MG Orally Active 1 capsule Once a day Lisinopril [facility] 17540304235 2.5 MG Orally Active 1 tablet Once a day Omeprazole [facility] 24044720022 40 MG Orally Active 1 capsule Once a day Flonase [facility] 26425799925 50 MCG/ACT Active 1 spray in Nasally Once a each day nostril Combigan [facility] 97138474681 0.2-0.5 % Active 1 drop into Ophthalmic affected Twice a day eye Latanoprost [facility] 26077717614 0.005 % Active 1 drop into Ophthalmic Once affected a day eye in the evening Super B Complex NDC 0 Active not defined Tylenol [facility] 16207895766 325 MG Orally Active 2 tablets every 6 hrs as needed Results No Known Results Summary Purpose eClinicalWorks Submission
--- OUTSIDE RECORDS SUMMARY | 2018-08-19 15:56 | XMS REPORT ---
[...] End Status Dosage System Date Date Lisinopril [facility] 92460598091 2.5 MG Orally Sep 25, Active 1 tablet Once a day [address] [facility] 29394043000 100 MG Orally Active 1 capsule Once a day as needed Metformin HCl [facility] 04440263327 500 MG Orally Active 1 tablet Twice a day with meals Oscal 500/[address] [facility] 73978623355 500-200 MG-UNIT Active 1 tablet D-3 Orally Once a with food day Omeprazole ND 22534858594 40 MG Orally Active 1 capsule Once a day Flonase [facility] 83792000410 50 MCG/ACT Active 1 spray in Nasally Once a each day nostril Simvastatin [facility] 38273838087 20 MG Orally Active 1 tablet in Once a day the evening Tradjenta [facility] 73183035066 5 MG Orally Sep 25, Active 1 tablet Once a day [address] [facility] 93820812582 0.2-0.5 % Active 1 drop into Ophthalmic affected Twice a day eye Latanoprost [facility] 43209808426 0.005 % Active 1 drop into Ophthalmic Once affected a day eye in the evening Super B Complex NDC 0 Active not defined Fish Oil ND 26364377499 1000 MG Orally Active 1 capsule Once a day MiraLax ND 15250319575 - Orally Once a Active 1 packet day mixed with [address] [facility] 21807023309 875-125 MG Nov 10Nov 20, Active 1 tablet Orally every 12 [address] [facility] 92117305102 325 MG Orally Active 2 tablets every 6 hrs as needed Results No Known Results Immunizations Vaccine Administration Date FluAD Nov 20, 2017 Summary Purpose eClinicalWorks Submission
--- OUTSIDE RECORDS SUMMARY | 2018-08-19 15:56 | XMS REPORT ---
:1945 Author Organization eClinicalWorks Care Team Providers Name Role Phone Jaamri Soto Provider Role Unavailable Allergies No Known [...]
--- OUTSIDE RECORDS SUMMARY | 2018-08-19 15:56 | XMS REPORT ---
:1945 Author Organization eClinicalWorks Care Team Providers Name Role Phone Jim Simental Provider Role Unavailable Allergies No Known Allergies [...] Medications Results No Known Results Summary Purpose eClinicalQReca! Submission
--- OUTSIDE RECORDS SUMMARY | 2018-08-19 15:56 | XMS REPORT ---
[...] eyes, unspecified H40.9 Active glaucoma type Assessment Follow up Z09 Active Problem Family history of colon cancer Z80.0 Active Problem Family history of diabetes mellitus Z83.3 Active Problem Constipation K59.00 Active Problem Hyperlipidemia, mixed E78.2 Active Problem Hypertriglyceridemia E78.1 Active Medications Medication Code Code Instructions Start End Status Dosage System Date Date Fish Oil [facility] 89725298466 1000 MG Orally Active 1 capsule Once a day Omeprazole [facility] 10173183436 40 MG Orally Active 1 capsule Once a day Zofran ND 26872736568 4 MG Orally Feb 23, Active 1 tablet every 6 hours 2019 as needed Neomycin ND 46710417899 500 MG Orally 2 Feb 18, Active 2 tablets Sulfate tabs @ 1pm / 2 2019 tabs @ 2pm/2 tabs @ 10pm Latanoprost [facility] 70434108183 0.005 % Active 1 drop into Ophthalmic Once affected a day eye in the evening MiraLax [facility] 75700410641 - Orally Once a Active 1 packet day mixed with 8 ounces of fluid Oscal 500/200 [facility] 47020783538 500-200 MG-UNIT Active 1 tablet D-3 Orally Once a with food day Tradjenta [facility] 17566102772 5 MG Orally Active 1 tablet Once a day Simvastatin [facility] 82913815316 20 MG Orally Active 1 tablet in Once a day the evening Docusate Sodium [facility] 47229885685 100 MG Orally Active 1 capsule Once a day as needed Flonase [facility] 38718931362 50 MCG/ACT Active 1 spray in Nasally Once a each day nostril Lisinopril [facility] 15355761184 2.5 MG Orally Active 1 tablet Once a day Combigan [facility] 23207807333 0.2-0.5 % Active 1 drop into Ophthalmic affected Twice a day eye Super B Complex ND 0 Active not defined Tylenol [facility] 06832488534 325 MG Orally Active 2 tablets every 6 hrs as needed Metformin HCl [facility] 70948149426 500 MG Orally Active 1 tablet Twice a day with meals Results No Known Results Summary Purpose eClinicalWorks Submission
--- OUTSIDE RECORDS SUMMARY | 2018-08-19 15:56 | XMS REPORT ---
:1945 Author Organization eClinicalWorks Care Team Providers Name Role Phone Soto Kauffman Provider Role Unavailable Allergies, Adverse Reactions, Alerts Substance Reaction Event Type N.K.D.A. 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 Assessment Depression, unspecified depression F32.9 Active type Problem Constipation K59.00 Active Assessment Glaucoma of both eyes, unspecified H40.9 Active glaucoma type Problem Hypertriglyceridemia E78.1 Active Assessment Constipation K59.00 Active Problem Osteopenia M85.80 Active Problem Family history of cardiac disorder Z82.49 Active Problem GERD (gastroesophageal reflux K21.9 Active disease) Problem Microalbuminuria R80.9 Active Problem Glaucoma of both eyes, unspecified H40.9 Active glaucoma type Assessment GERD (gastroesophageal reflux K21.9 Active disease) Assessment Microalbuminuria R80.9 Active Problem Primary adenocarcinoma of ascending C18.2 Active colon Assessment Allergic rhinitis J30.9 Active Problem 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 Problem Allergic rhinitis J30.9 Active Problem Depression, unspecified depression F32.9 Active type Problem Controlled type 2 diabetes mellitus E11.9 Active without complication, without long-term current use of insulin Assessment Controlled type 2 diabetes mellitus E11.9 Active without complication, without long-term current use of insulin Assessment Primary adenocarcinoma of ascending C18.2 Active colon Assessment Osteopenia M85.80 Active Assessment Hyperlipidemia, mixed E78.2 Active Problem Family history of colon cancer Z80.0 Active Problem Family history of diabetes mellitus Z83.3 Active Problem Hyperlipidemia, mixed E78.2 Active Medications Medication Code Code Instructions Start End Status Dosage System Date Date Karenigan [facility] 39860457039 0.2-0.5 % Active 1 drop into Ophthalmic affected Twice a day eye Latanoprost ND 31982512535 0.005 % Active 1 drop into Ophthalmic Once affected a day eye in the evening Simvastatin [facility] 54660498421 20 MG Orally Active 1 tablet in Once a day the evening Fish Oil ND 97806230562 1000 MG Orally Active 1 capsule Once a day Zofran ND 24730748314 4 MG Orally Feb 23, Active 1 tablet every 6 hours 2018 as needed Super B Complex NDC 0 Active not defined Flonase [facility] 00730956888 50 MCG/ACT Active 1 spray in Nasally Once a each day nostril Oscal 500/200 [facility] 36131527159 500-200 MG-UNIT Active 1 tablet D-3 Orally Once a with food day Metformin HCl ND 70449205277 500 MG Orally Active 1 tablet Twice a day with meals Tradjenta [facility] 38331771092 5 MG Orally Active 1 tablet Once a day Lisinopril [facility] 92379203667 2.5 MG Orally Active 1 tablet Once a day Omeprazole [facility] 14265453816 40 MG Orally Active 1 capsule Once a day Tylenol [facility] 62199294776 325 MG Orally Active 2 tablets every 6 hrs as needed Docusate Sodium [facility] 67524666805 100 MG Orally Active 1 capsule Once a day as needed Neomycin ND 47577771745 500 MG Orally 2 Feb 18, Active 2 tablets Sulfate tabs @ 1pm / 2 2019 tabs @ 2pm/2 tabs @ 10pm MiraLax [facility] 63369455351 - Orally Once a Active 1 packet day mixed with 8 ounces of fluid Results No Known Results Summary Purpose eClinicalWorks Submission
--- OUTSIDE RECORDS SUMMARY | 2018-08-19 15:56 | XMS REPORT ---
[...] eyes, unspecified H40.9 Active glaucoma type Problem Primary adenocarcinoma of ascending C18.2 Active colon Problem 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 Problem Allergic rhinitis J30.9 Active Problem Depression, unspecified depression F32.9 Active type Problem Controlled type 2 diabetes mellitus E11.9 Active without complication, without long-term current use of insulin Assessment Increased frequency of urination R35.0 Active Assessment Dysuria R30.0 Active Problem Family history of colon cancer Z80.0 Active Problem Family history of diabetes mellitus Z83.3 Active Problem Constipation K59.00 Active Problem Hyperlipidemia, mixed E78.2 Active Problem Hypertriglyceridemia E78.1 Active Medications Medication Code Code Instructions Start End Status Dosage System Date Date Simvastatin ND 19903830550 20 MG Orally Active 1 tablet in Once a day the evening Fish Oil ND 92301198663 1000 MG Orally Active 1 capsule Once a day Macrobid [facility] 80855114715 100 MG Orally August 18August Active 1 capsule every 12 hrs 2018 14, with food 2019 Neomycin ND 87720336706 500 MG Orally 2 Feb 18, Active 2 tablets Sulfate tabs @ 1pm / 2 2019 tabs @ 2pm/2 tabs @ 10pm Flonase ND 44091748933 50 MCG/ACT Active 1 spray in Nasally Once a each day nostril MiraLax ND 07989319680 - Orally Once a Active 1 packet day mixed with 8 ounces of fluid Docusate Sodium ND 68288824250 100 MG Orally Active 1 capsule Once a day as needed Oscal 500/200 [facility] 95693471680 500-200 MG-UNIT Active 1 tablet D-3 Orally Once a with food day Tradjenta [facility] 25932969061 5 MG Orally Active 1 tablet Once a day Omeprazole [facility] 90218254667 40 MG Orally Active 1 capsule Once a day Tylenol [facility] 46848046443 325 MG Orally Active 2 tablets every 6 hrs as needed Super B Complex ND 0 Active not defined Zofran [facility] 12600174418 4 MG Orally Feb 23, Active 1 tablet every 6 hours 2019 as needed Combigan [facility] 61895977887 0.2-0.5 % Active 1 drop into Ophthalmic affected Twice a day eye Latanoprost [facility] 36787941757 0.005 % Active 1 drop into Ophthalmic Once affected a day eye in the evening Metformin HCl [facility] 47672679522 500 MG Orally Active 1 tablet Twice a day with meals Lisinopril [facility] 98288057098 2.5 MG Orally Active 1 tablet Once a day Results No Known Results Summary Purpose eClinicalWorks Submission
--- OUTSIDE RECORDS SUMMARY | 2018-08-19 15:56 | XMS REPORT ---
[...] Problem Hypertriglyceridemia E78.1 Active Medications Medication Code System Code Instructions Start Date End Date Status Dosage Zofran [facility] 60091310148 4 MG Orally every Feb 23, Active 1 tablet 6 hours as needed 2018 Results No Known Results Summary Purpose eClinicalWorks Submission
--- OUTSIDE RECORDS SUMMARY | 2018-08-19 15:56 | XMS REPORT ---
:1945 Author Organization eClinicalWorks Care Team Providers Name Role Phone FranciscovalenciaJim Provider Role Unavailable Allergies No Known Allergies [...] Start End Status Dosage System Date Date Neomycin Sulfate NDC 97829881315 500 MG Orally 2 Feb 18, Active 2 tablets tabs @ 1pm / 2 2019 tabs @ 2pm/2 tabs @ 10pm Metronidazole NDC 82720289008 500 MG Orally 1 Feb 18, Feb 19, Active 1 tablet tab @ 1pm/1 tab 2019 2019 @ 2pm/1 tab @ 10pm Golytely NDC 96708722119 236 GM Orally Feb 18, Feb 19, Active as directed Begin bowel 2018 2018 prep @ 6pm Results No Known Results Summary Purpose eClinicalWorks Submission
--- OUTSIDE RECORDS SUMMARY | 2018-08-19 15:56 | XMS REPORT ---
[...] of insulin Assessment Microalbuminuria R80.9 Active Assessment Controlled type 2 diabetes mellitus E11.9 Active without complication, without long-term current use of insulin Assessment Hyperlipidemia, mixed E78.2 Active Assessment GERD (gastroesophageal reflux K21.9 Active disease) Problem Family history of colon cancer Z80.0 Active Problem Family history of diabetes mellitus Z83.3 Active Problem Constipation K59.00 Active Problem Hyperlipidemia, mixed E78.2 Active Problem Hypertriglyceridemia E78.1 Active Medications Medication Code Code Instructions Start End Status Dosage System Date Date Metformin HCl [facility] 04991280666 500 MG Orally Active 1 tablet Twice a day with meals Omeprazole [facility] 55112319047 40 MG Orally Active 1 capsule Once a day Lisinopril [facility] 41518821923 2.5 MG Orally Active 1 tablet Once a day Tradjenta [facility] 66261238415 5 MG Orally Once Active 1 tablet a day Simvastatin [facility] 44824532101 20 MG Orally Active 1 tablet Once a day in the evening Results No Known Results Summary Purpose eClinicalWorks Submission
[2018-08-19 17:09] LABS: Urine Blood 2+ (NEG); Urine Glucose NEGATIVE (NEG); Urine Protein NEGATIVE (NEG); Urine pH 6.5 (5.0-7.0)
[2018-08-19 17:31] LABS: Absolute Lymphocytes (CBC) 1.8 K/uL (0.7-4.9); Basophils % 0.5 % (0-1.3); Eosinophils % 1.5 % (0-4.4); Hematocrit 36.7 % (36.0-45.0); Lymphocytes % 26.8 % (15.3-44.8); MPV 8.4 fL (7.6-11.3); Monocytes % 7.7 % (3.3-12.3); RBC Red Blood Cell Count 4.13 M/uL (3.86-4.86)
[2018-08-19 17:48] LABS: Albumin 3.9 g/dL (3.4-5.0); Bilirubin Direct 0.1 mg/dL (0-0.2); Bilirubin Total 0.5 mg/dL (0.2-1.0); Protein, Total 7.3 g/dL (6.4-8.2)
--- NOTE | 2018-08-19 18:15 | RAD REPORT ---
EXAM DESCRIPTION: CT - Stone Protocol - 08/19/2018 5:49 pm CLINICAL HISTORY: Abdominal pain. Hematuria COMPARISON: 2018 TECHNIQUE: Computed axial tomography of the abdomen pelvis was obtained without oral or IV contrast. Lack of IV and oral contrast limits evaluation of solid organs, bowel, and vessels. Coronal reformat selwyn images were obtained and reviewed. All CT scans are performed using dose optimization technique as appropriate and may include automated exposure control or mA/KV adjustment according to patient size. FINDINGS: A renal calculus is not seen. An ureteral calculus is not noted. A bladder calculus is not present. Fatty liver. Hepatomegaly Cholecystectomy Spleen, pancreas and adrenals appear grossly normal There is no evidence of diverticulitis. Postsurgical changes involve the colon IMPRESSION: Negative for a genitourinary calculus Hepatomegaly with fatty infiltration
[2018-08-19] MEDS ORDERED: ONDANSETRON 4 MG/2 ML VIAL ONE (18:20)
[2018-08-19] MEDS ORDERED: MORPHINE 2 MG/ML SYR ONE (18:20)
--- NOTE | 2018-08-19 18:42 | ER ---
Nurse's Notes [facility] Name: Shelby Mccormick Age: 73 yrs Sex: Female : 1945 Arrival Date: 08/19/2018 Time: 15:57 Bed 6 Private MD: Soto Kauffman Diagnosis: Hematuria, unspecified Presentation: 08/19 16:03 Presenting complaint: Patient states: i went to my PCP i thought i had UTI but it was hj clear; thi morning around 5:30 am, i felt pain on my groin area with lower back pain and i noticed blood on my urine; denies fever; pain is 5/10; Rx with nitrofurantoin that started this AM;. Transition of care: patient was not received from another setting of care. Onset of symptoms was August 19, 2018. Risk Assessment: Do you want to hurt yourself or someone else? Patient reports no desire to harm self or others. Initial Sepsis Screen: Does the patient meet any 2 criteria? No. Patient's initial sepsis screen is negative. Does the patient have a suspected source of infection? No. Patient's initial sepsis screen is negative. Care prior to arrival: None. 16:03 Method Of Arrival: Ambulatory 16:03 Acuity: GORDON 3 hj Historical: - Allergies: 16:07 meperidine; hj 16:07 Latex, Natural Rubber; hj - Home Meds: 16:55 Combigan 0.2-0.5 % ophthalmic drop 1 drop every 12 hours [Active]; lisinopril 2.5 mg tw2 Oral tab 1 tab once daily [Active]; Lumigan 0.01 % ophthalmic drop [Active]; metformin 500 mg Oral tab 1 tab 2 times per day [Active]; omeprazole 40 mg Oral cpDR 1 cap once daily [Active]; simvastatin 20 mg Oral tab 1 tab once daily [Active]; Tradjenta 5 mg Oral tab 1 tab once daily [Active]; - PMHx: 16:07 acid reflux; High Cholesterol; Diabetes - NIDDM; hj - PSHx: 16:07 Cholecystectomy; Hysterectomy; colon surgery; hj - Immunization history:: Adult Immunizations. - Social history:: Smoking status: . - Ebola Screening: : Patient denies travel to an Ebola-affected area in the 21 days before illness onset. Screenin:50 Abuse screen: Denies threats or abuse. Nutritional screening: No deficits noted. tw2 Tuberculosis screening: No symptoms or risk factors identified. Fall Risk None identified. Assessment: 18:05 General: Appears in no apparent distress. uncomfortable, well developed, Behavior is sv calm, cooperative, appropriate for age. Pain: Complains of pain in right low back and right lower quadrant Pain currently is 5 out of 10 on a pain scale. Quality of pain is described as shooting, Is continuous. Neuro: Level of Consciousness is awake, alert, obeys commands, Oriented to person, place, time, situation, Moves all extremities. Full function. Respiratory: Respiratory effort is even, unlabored, Respiratory pattern is regular, symmetrical. : Reports burning with urination, hematuria. Derm: Skin is pink, warm \T\ dry. Musculoskeletal: Range of motion: intact in all extremities. 19:06 Reassessment: Patient appears in no apparent distress at this time. No changes from previously documented assessment. Patient and/or family updated on plan of care and expected duration. Pain level reassessed. Patient is alert, oriented x 3, equal unlabored respirations, skin warm/dry/pink. Vital Signs: 16:07 BP 135 / 72; Pulse 90; Resp 18; Temp 98.1(TE); Pulse Ox 98% on R/A; Weight 75.75 kg; hj Height 5 ft. 4 in. (162.56 cm); Pain 5/10; 17:30 BP 120 / 79; Pulse 82; Resp 16; Pulse Ox 97% ; sv 18:14 BP 127 / 77; Pulse 77; Resp 18; Pulse Ox 98% ; sv 19:07 Pain 2/10; sv 16:07 Body Mass Index 28.67 (75.75 kg, 162.56 cm) ED Course: 15:57 Patient arrived in ED. mr 15:57 Soto Kauffman DO is Private Physician. mr 16:06 Triage completed. 16:07 Arm band placed on right wrist. 16:47 Obdulio Mondragon PA is PHCP. [facility] 16:47 Rashel Harris MD is Attending Physician. [facility] 16:47 Anita Anthony, CALLUM is Primary Nurse. sv 16:49 Urine Dipstick--Ancillary (enter results) Sent. sv 16:50 Patient has correct armband on for positive identification. Bed in low position. sv 17:19 Initial lab(s) drawn, by me, sent to lab. Inserted saline lock: 20 gauge in left dh3 antecubital area, using aseptic technique. Blood collected. 17:[address] via wheelchair. il 17:49 CT Stone Protocol In Process Unspecified. EDMS 17:54 Patient moved back from ID. sv 18:37 Rigo Britton MD is Referral Physician. [facility] 19:06 No provider procedures requiring assistance completed. IV discontinued, intact, sv bleeding controlled, No redness/swelling at site. Pressure dressing applied. Administered Medications: 18:08 Drug: Zofran 4 mg Route: IVP; Site: left antecubital; sv 19:07 Follow up: Response: No adverse reaction sv 18:10 Drug: morphine 2 mg Route: IVP; Site: left antecubital; sv 19:07 Follow up: Pain 2/10 Adult; Response: No adverse reaction; Pain is decreased sv Outcome: 18:40 Discharge ordered by MD. [facility] 19:06 Discharged to home via wheelchair, with family. sv 19:06 Condition: stable 19:06 Discharge instructions given to patient, family, Instructed on discharge instructions, follow up and referral plans. no drinking with medication, no driving heavy equipment, medication usage, Demonstrated understanding of instructions, follow-up care, medications, Prescriptions given X 1. 19:07 Patient left the ED. sv Signatures: Dispatcher [employer] EDMS Anita Anthony RN RN Obdulio Mondragon PA PA [facility] Rachel Cifuentes Henry, RN RN Nichole Weiss RN RN [facility] Torito Aguillon [facility] Corrections: (The following items were deleted from the chart) 16:08 16:07 Pulse 90bpm; Resp 18bpm; Pulse Ox 98% RA; Temp 98.1F Temporal; 75.75 kg; Height 5 hj ft. 4 in.; BMI: 28.6; Pain 5/10; hj 18:14 18:05 : Reports burning with urination, sv sv
--- NOTE | 2018-08-19 18:42 | EDPHYS ---
Physician Documentation [facility] Name: Shelby Mccormick Age: 73 yrs Sex: Female : 1945 Arrival Date: 08/19/2018 Time: 15:57 Bed 6 Private MD: Soto Kauffman ED Physician Rashel Harris HPI: 08/19 16:59 This 73 yrs old Female presents to ER via Ambulatory with complaints of Back jmm Pain, Abdominal Pain, Urinary Problem. 16:59 The patient presents with pain that is acute. jmm 16:59 Onset: The symptoms/episode began/occurred. jmm 16:59 Modifying factors: The symptoms are alleviated by nothing, the symptoms are aggravated jmm by nothing. Associated signs and symptoms: Pertinent positives: hematuria, Pertinent negatives: diarrhea. This is a 73 year old female with a history of GERD, HLP, DM that presents to the ED with complaints of lower abdominal pain, dysuria, and hematuria beginning this morning. patient prescribed Macrobid with no relief. Advised to to the ED due to concerns for ureteral stones. . Historical: - Allergies: 16:07 meperidine; hj 16:07 Latex, Natural Rubber; hj - Home Meds: 16:55 Combigan 0.2-0.5 % ophthalmic drop 1 drop every 12 hours [Active]; lisinopril 2.5 mg tw2 Oral tab 1 tab once daily [Active]; Lumigan 0.01 % ophthalmic drop [Active]; metformin 500 mg Oral tab 1 tab 2 times per day [Active]; omeprazole 40 mg Oral cpDR 1 cap once daily [Active]; simvastatin 20 mg Oral tab 1 tab once daily [Active]; Tradjenta 5 mg Oral tab 1 tab once daily [Active]; - PMHx: 16:07 acid reflux; High Cholesterol; Diabetes - NIDDM; hj - PSHx: 16:07 Cholecystectomy; Hysterectomy; colon surgery; hj - Immunization history:: Adult Immunizations. - Social history:: Smoking status: . - Ebola Screening: : Patient denies travel to an Ebola-affected area in the 21 days before illness onset. ROS: 16:59 Constitutional: Negative for fever, chills, and weight loss, Cardiovascular: Negative jmm for chest pain, palpitations, and edema, Respiratory: Negative for shortness of breath, cough, wheezing, and pleuritic chest pain. 16:59 Abdomen/GI: Positive for abdominal pain. 16:59 : Positive for urinary symptoms. 16:59 All other systems are negative. Exam: 16:59 Constitutional: This is a well developed, well nourished patient who is awake, alert, jmm and in no acute distress. Head/Face: atraumatic. Eyes: EOMI, no conjunctival erythema appreciated ENT: Moist Mucus Membranes Neck: Trachea midline, Supple Chest/axilla: Normal chest wall appearance and motion. Cardiovascular: Regular rate and rhythm. No edema appreciated Respiratory: Normal respirations, no respiratory distress appreciated Abdomen/GI: Non distended, soft Back: Normal ROM Skin: General appearance color normal MS/ Extremity: Moves all extremities, no obvious deformities appreciated, no edema noted to the lower extremities Neuro: Awake and alert, normal gait Psych: Behavior is normal, Mood is normal, Patient is cooperative and pleasant Vital Signs: 16:07 BP 135 / 72; Pulse 90; Resp 18; Temp 98.1(TE); Pulse Ox 98% on R/A; Weight 75.75 kg; hj Height 5 ft. 4 in. (162.56 cm); Pain 5/10; 17:30 BP 120 / 79; Pulse 82; Resp 16; Pulse Ox 97% ; sv 18:14 BP 127 / 77; Pulse 77; Resp 18; Pulse Ox 98% ; sv 19:07 Pain 2/10; sv 16:07 Body Mass Index 28.67 (75.75 kg, 162.56 cm) MDM: 16:59 Patient medically screened. [facility] 18:36 Data reviewed: vital signs, nurses notes. Counseling: I had a detailed discussion with [facility] the patient and/or guardian regarding: the historical points, exam findings, and any diagnostic results supporting the discharge/admit diagnosis, radiology results, the need for outpatient follow up, to return to the emergency department if symptoms worsen or persist or if there are any questions or concerns that arise at home. ED course: Pain relieved in the ED. Due to ongoing hematuria patient is advised to follow up with Urology. Patient is otherwise given strict return precautions. Patient understood and agrees with the plan of care. . 08/19 16:47 Order name: Urine Dipstick--Ancillary (enter results) ms 08/19 17:05 Order name: Basic Metabolic Panel; Complete Time: 18:05 [facility] 08/19 17:05 Order name: CBC with Diff; Complete Time: 17:43 [facility] 08/19 17:05 Order name: Creatinine for Radiology; Complete Time: 18:05 [facility] 08/19 17:05 Order name: Hepatic Function; Complete Time: 18:05 [facility] 08/19 17:05 Order name: Lipase; Complete Time: 18:05 [facility] 08/19 16:08 Order name: Urine Dipstick-Ancillary (obtain specimen); Complete Time: 16:36 08/19 17:05 Order name: IV Saline Lock; Complete Time: 17:25 [facility] 08/19 17:05 Order name: Labs collected and sent; Complete Time: 17:25 [facility] 08/19 17:05 Order name: CT Stone Protocol; Complete Time: 18:32 [facility] Administered Medications: 18:08 Drug: Zofran 4 mg Route: IVP; Site: left antecubital; sv 19:07 Follow up: Response: No adverse reaction sv 18:10 Drug: morphine 2 mg Route: IVP; Site: left antecubital; sv 19:07 Follow up: Pain 2/ Adult; Response: No adverse reaction; Pain is decreased sv Disposition: 08/20 07:32 Co-signature as Attending Physician, Rashel Harris MD I agree with the assessment and kdr plan of care. Disposition: 08/19/18 18:40 Discharged to Home. Impression: Hematuria, unspecified. - Condition is Stable. - Discharge Instructions: Hematuria, Adult. - Prescriptions for Ultracet 37.5- 325 mg Oral Tablet - take 1 tablet by ORAL route every 6 hours - for up to 5 days; do not exceed 8 tablets per day.; 12 tablet. - Medication Reconciliation Form, Thank You Letter, Antibiotic Education, Prescription Opioid Use form. - Follow up: Rigo Britton MD; When: 2 - 3 days; Reason: Recheck today's complaints, Continuance of care, Re-evaluation by your physician. Signatures: Dispatcher [employer] Anita Drew RN RN sv Rittger, Kevin, MD MD kdr Mickail, Joel, PA PA jmm Joaquin, Henry, RN RN hj Wise, Tara, RN RN tw2 Corrections: (The following items were deleted from the chart) 08/19 19:07 18:40 08/19/2018 18:40 Discharged to Home. Impression: Hematuria, unspecified. sv Condition is Stable. Forms are Medication Reconciliation Form, Thank You Letter, Antibiotic Education, Prescription Opioid Use. Follow up: Rigo Britton; When: 2 - 3 days; Reason: Recheck today's complaints, Continuance of care, Re-evaluation by your physician. deborah
[2018-08-19 19:15] VITALS: TEMP 98.1
[2018-08-19 19:17] VITALS: BP 127/77; O2SAT 98
== END 2018-08-19 19:07 | disposition home or self-care (01) ==
LOC: ER 15:53
DX: R31.9 Hematuria, unspecified (principal); E11.9 Type 2 diabetes mellitus without complications; E78.00 Pure hypercholesterolemia, unspecified; Z88.8 Allergy status to other drugs, medicaments and biological substances; Z91.040 Latex allergy status; Z91.048 Other nonmedicinal substance allergy status
CPT/HCPCS: 85025; 80048; 36415; 80076; 81003; 83690; 76377; 74176; 96375; 96374; 99284; J2270; J2405

== ENCOUNTER 2019-01-29 06:41 | Day surgery (SDC) | payer OTHER ==
--- OUTSIDE RECORDS SUMMARY | 2019-01-29 06:44 | XMS REPORT ---
:1945 Author Organization eClinicalWorks Care Team Providers Name Role Phone Jamari Soto Provider Role Unavailable Allergies No Known Allergies Problems Problem Type Condition Code Onset Dates Condition Status Problem GERD (gastroesophageal reflux K21.9 Active disease) Problem Allergic rhinitis J30.9 Active Problem Family history of cardiac disorder Z82.49 Active Problem Primary adenocarcinoma of ascending C18.2 Active colon Problem Microalbuminuria R80.9 Active Problem Bladder spasm N32.89 Active Problem Controlled type 2 diabetes mellitus E11.9 Active without complication, without long-term current use of insulin Problem 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 Problem Glaucoma of both eyes, unspecified H40.9 Active glaucoma type Problem Depression, unspecified depression F32.9 Active type Problem Family history of diabetes mellitus Z83.3 Active Problem Constipation K59.00 Active Problem Hyperlipidemia, mixed E78.2 Active Problem Hypertriglyceridemia E78.1 Active Problem Family history of colon cancer Z80.0 Active Problem Osteopenia M85.80 Active Medications No Known Medications Results No Known Results Summary Purpose eClinicalPreparis Submission
--- OUTSIDE RECORDS SUMMARY | 2019-01-29 06:44 | XMS REPORT ---
[...] Problem Depression, unspecified depression F32.9 Active type Assessment Hyperlipidemia, mixed E78.2 Active Assessment Anemia, unspecified type D64.9 Active Assessment Controlled type 2 diabetes mellitus E11.9 Active without complication, without long-term current use of insulin Problem Family history of diabetes mellitus Z83.3 Active Problem Constipation K59.00 Active Problem Hyperlipidemia, mixed E78.2 Active Problem Hypertriglyceridemia E78.1 Active Problem Family history of colon cancer Z80.0 Active Problem Osteopenia M85.80 Active Medications No Known Medications Results No Known Results Summary Purpose Duolingo[employer]Nimble Submission
--- OUTSIDE RECORDS SUMMARY | 2019-01-29 06:44 | XMS REPORT ---
[...] Medications Results No Known Results Summary Purpose eClinicalMultifonds Submission
[2019-01-29] MEDS ORDERED: NA CHLORIDE 0.9% 1,000 ML ONE (07:13)
[2019-01-29] MEDS ORDERED: propofoL 200 MG/20 ML VIAL IV ONE (08:39)
[2019-01-29] MEDS ORDERED: LIDOCAINE 1% MPF 5 ML VIAL ONE (08:39)
[2019-01-29 09:29] VITALS: O2SAT 97
[2019-01-29 11:28] VITALS: BP 120/62; TEMP 97.8
== END 2019-01-29 09:53 | disposition home or self-care (01) ==
LOC: OR 06:41
PROVIDERS: ATTEND Surgery
PROC: 0DB68ZX Excision of Stomach, Via Natural or Artificial Opening Endoscopic, Diagnostic (ICD-10-PCS; principal; 2019-01-29 08:00)
PROC: 0DJD8ZZ Inspection of Lower Intestinal Tract, Via Natural or Artificial Opening Endoscopic (ICD-10-PCS; 2019-01-29 08:00)
DX: K29.50 Unspecified chronic gastritis without bleeding (principal); Z08 Encounter for follow-up examination after completed treatment for malignant neoplasm; K21.9 Gastro-esophageal reflux disease without esophagitis; K44.9 Diaphragmatic hernia without obstruction or gangrene; E11.9 Type 2 diabetes mellitus without complications; E78.00 Pure hypercholesterolemia, unspecified; M19.90 Unspecified osteoarthritis, unspecified site; Z85.038 Personal history of other malignant neoplasm of large intestine; Z90.49 Acquired absence of other specified parts of digestive tract; Z91.040 Latex allergy status
CPT/HCPCS: 43239; 88312; 82947; 88305; 45378; J2704; J7030

== ENCOUNTER 2019-07-05 19:20 | Emergency (ER) | payer OTHER ==
--- OUTSIDE RECORDS SUMMARY | 2019-07-05 19:22 | XMS REPORT ---
:1945 Author Organization eClinicalWorks Care Team Providers Name Role Phone Jamari Soto Provider Role Unavailable Allergies, Adverse Reactions, Alerts Substance Reaction Event Type Demerol Info Not Available Drug Allergy Problems Problem Type Condition Code Onset Dates Condition Statu s Assessment Anemia, unspecified type D64.9 Act erin Assessment Nonmelanoma skin cancer C44.90 Acti ve Assessment Depression, unspecified depression F32.9 Active type Assessment Glaucoma of both eyes, unspecified H40.9 Active glaucoma type Problem Hypertriglyceridemia E78.1 Active Assessment Constipation K59.00 Active Problem Osteopenia M85.80 Active Assessment Allergic rhinitis J30.9 Active Problem GERD (gastroesophageal reflux K21.9 Active disease) Problem Allergic rhinitis J30.9 Active Problem Family history of cardiac disorder Z82.49 Active Problem Primary adenocarcinoma of ascending C18.2 Active colon Problem Microalbuminuria R80.9 Active Assessment Osteopenia M85.80 Active Assessment GERD (gastroesophageal reflux K21.9 Active disease) Problem Bladder spasm N32.89 Active Assessment Microalbuminuria R80.9 Active Problem Controlled type 2 diabetes mellitus E11.9 Active without complication, without long-term current use of insulin Problem Nonmelanoma skin cancer C44.90 Acti ve Problem Glaucoma of both eyes, unspecified H40.9 Active glaucoma type Problem Depression, unspecified depression F32.9 Active type Assessment Primary adenocarcinoma of ascending C18.2 Active colon Assessment Hyperlipidemia, mixed E78.2 Active Assessment Controlled type 2 diabetes mellitus E11.9 Active without complication, without long-term current use of insulin Problem Family history of diabetes mellitus Z83.3 Active Problem Constipation K59.00 Active Problem Hyperlipidemia, mixed E78.2 Active Problem Family history of colon cancer Z80.0 Active Medications Medication Code Code Instructions Start End Status Dosage System Date Date MiraLax [facility] 28766771965 - Orally Once a Active 1 pa cket day mixed with 8 ounces of fluid Docusate Sodium ND 56208107175 100 MG Orally Active 1 capsule Once a day as needed Simvastatin ND 25144253528 20 MG Orally Active 1 t ablet in Once a day the evening Tylenol [facility] 09831992814 325 MG Orally Active 2 tabl ets every 6 hrs as needed Benadryl [facility] 79776961859 25 MG Orally Active 1/2 ta blet Allergy Once a day at bedtime as needed Oscal 500/200 [facility] 64166728101 500-200 MG-UNIT Active 1 tablet D-3 Orally Once a with food day Combigan [facility] 12845955767 0.2-0.5 % Active 1 drop in to Ophthalmic affected Twice a day eye Tradjenta [facility] 07104610290 5 MG Orally Active 1 tabl et Once a day Fish Oil [facility] 79796934818 1000 MG Orally Active 1 ca psule Once a day Metformin HCl [facility] 80581884338 500 MG Orally Active 1 tablet Twice a day with meals Lisinopril [facility] 17034701677 2.5 MG Orally Active 1 t ablet Once a day Omeprazole [facility] 91011022320 40 MG Orally Active 1 ca psule Once a day Flonase [facility] 33090351510 50 MCG/ACT Active 1 spray i n Nasally Once a each day nostril Latanoprost [facility] 79879578396 0.005 % Active 1 drop i nto Ophthalmic Once affected a day eye in the evening Results No Known Results Summary Purpose eClinicalWorks Submission
--- OUTSIDE RECORDS SUMMARY | 2019-07-05 19:22 | XMS REPORT ---
:1945 Author Organization [facility] t Address [address] [place] [address] Care Team Providers Name Role Phone Unavailable Unavailable Unavailable Problems Condition Condition Condition Status Onset Resolution Last Treating Co mments Source Name Details Category Date Date Treatment Clinician Date Constipati Constipati Problem Active [facility] Osteopenia Osteopenia Diagnosis [facility] Hypertrigl Hypertrigl Problem Active [facility] yceridemia yceridemia [facility] - [facility] Controlled Controlled Diagnosis Active [facility] type 2 type 2 [facility] - diabetes diabetes Memori a mellitus mellitus l without without Outpati complicati complicati en t on, on, Clinics without without long-term long-term current current use of use of insulin insulin Depression Depression Problem Active [facility] , , [facility] - unspecifie unspecifie Me moria d d l depression depression Ou tpati type type ent Clinics Glaucoma Glaucoma Problem [facility] both of both [facility] eyes, eyes, Memoria unspecifie unspecifie l d glaucoma d glaucoma Ou tpati type type ent Clinics Nonmelanom Nonmelanom Problem Active [facility] a skin a skin [facility] cancer cancer [facility] Allergic Allergic Problem [facility]initis [facility] GERD GERD Diagnosis Active [facility] (gastroeso (gastroeso [facility] - phageal phageal Memoria reflux reflux l disease) disease) Outpat i ent Clinics Family Family Problem Active [facility] history of history of [facility] - cardiac cardiac Memoria disorder disorder l Outpati ent Clinics Hyperlipid Hyperlipid Problem Active [facility] emia, emia, [facility] mixed mixed [facility] l [facility] ent Clin[facility] Family Family Problem Active [facility] history of history of [facility] - colon colon Memoria cancer cancer l [facility] Family Family Problem Active [facility] history of history of [facility] - diabetes diabetes Memori a mellitus mellitus l [facility] Microalbum Microalbum Diagnosis Active [facility] inuria inuria [facility] Primary Primary Diagnosis Active [facility] adenocarci adenocarci [facility] colon colon [facility] Bladder Bladder Problem Active [facility] spasm spasm [facility] Anemia, Anemia, Diagnosis Active [facility] unspecifie unspecifie [facility] - d type d type Memoria l [facility] Allergies, Adverse Reactions, Alerts Allergy Allergy Status Severity Reaction(s) Onset Inactive Treating Comm ents Source Name Type Date Date Clinician Demerol Adverse Active Info Not [facility] Reaction Available [facility] Medications Ordered Filled Start Stop Current Ordering Indication Dosage Frequency Signature Comments Components Source Medication Medication Date Date Medication? Clinician (SIG) Name Name Rinku Dobbs Yes [place] [address] [facility] [place] [facility] MiraLax MiraLax Yes [place] [address] [facility] [place] mixed with [facility] - 8 ounces Memoria of fluid l [facility] Docusate Docusate Yes [place] [address] [facility] [address] Sodium Sodium [place] as needed [facility] Simvastatin Simvastatin Yes [place] [address] [facility] [place] in the [facility] - evening Memoria l [facility] Tylenol Tylenol Yes [place] [address] [place] as needed [facility] Benadryl Benadryl Yes [place] 1/[address] [facility] Allergy Allergy [place] at bedtime [facility] - as needed Memoria l [facility] Oscal Oscal Yes [place] [address] 500/200 D-3 500/200 D-3 [place] with food [facility] Combigan Combigan Yes [place] [address] [place] into [facility] - affected Memoria eye l [facility] Fish Oil Fish Oil Yes [place] [address] [place] [facility] Metformin Metformin Yes [place] [address] [address] HCl HCl [place] with meals [facility] Lisinopril Lisinopril Yes [place] [address] [place] [facility] Omeprazole Omeprazole Yes [place] [address] [facility] [place] [facility] Flonase Flonase Yes [place] [address] [facility] [place] each [facility] nostril [facility] Latanoprost Latanoprost Yes [place] [address] [facility] [place] [facility] Immunizations Ordered Filled Immunization Date Status Comments Sour e Immunization Name Name FluAD FluAD 2018-11-[address] [facility] FluAD FluAD 2017-11-[address] [facility] Procedures This patient has no known procedures. Encounters Start End Encounter Admission Attending Care Care Encounter Source Date/Time Date/Time Type Type Clinicians Facility Department ID 2019-06-21 2019-06-21 [facility] [id number] [facility] 10:15:00 10:15:00 [employer] [facility] Medicine Medicine Outpati ent Clinics 2019-05-25 2019-05-25 [facility] [id number] [facility] 14:23:00 14:23:00 [employer] [facility] Medicine Medicine Outpati ent Clinics 2019-04-30 2019-04-30 [facility] [id number] 09:13:00 09:13:00 [employer] [facility] Medicine Medicine Outpati ent Clinics 2019-03-15 2019-03-15 [facility] [id number] [facility] 14:30:00 14:30:00 [employer] [facility] Medicine Medicine Outpati ent Clinics 2019-03-08 2019-03-08 [facility] [id number] [facility] 11[facility]30:00 11:30:00 [employer] [facility] Medicine Outpati ent Clinics 2019-01-25 2019-01-25 [facility] [id number] 17:01:00 17:01:00 [employer] s - Drive [facility] Medicine Outpati ent Clinics 2018-12-23 2018-12-23 [facility] [id number] [address] 11:04:00 11:04:00 [place] [employer] com s - Drive [facility] Medicine Outpati ent Clinics 2018-11-18 2018-11-18 [facility] [id number] 09:53:00 09:53:00 [place] [employer] s - Drive [facility] Medicine Outpati ent Clinics 2018-11-09 2018-11-09 [facility] [id number] 08:45:00 08:45:00 [place] [employer] s - Drive [facility] Medicine Outpati ent Clinics 2018-11-05 2018-11-05 [facility] [id number] 11:17:00 11:17:00 [place] [employer] s - Drive [facility] Medicine Outpati ent Clinics 2018-11-05 2018-11-05 [facility] [id number] 08:00:00 08:00:00 [place] [employer] - Drive [facility] Medicine Outpati ent Clinics 2018-10-20 2018-10-20 [facility] [id number] 09:00:00 09:00:00 t Specialty/U [facility] kes - Specialty rology Memori a /Urology Clinic l Clinic Outpati ent Clinics 2018-10-13 2018-10-13 [facility] [id number] 16:23:00 16:23:00 t [place] [employer] s - Drive [facility] Medicine Outpati ent Clinics 2018-10-01 2018-10-01 [facility] [id number] [address] 14:07:00 14:07:00 t Specialty/U [place] kes - Specialty rology Memori a /Urology Clinic l Clinic Outpati ent Clinics 2018-09-18 2018-09-18 [facility] [id number] 11:28:00 11:28:00 t Specialty/U [place] kes - Specialty rology Memori a /Urology Clinic l Clinic Outpati ent Clinics 2018-09-03 2018-09-03 [facility] [id number] 11:00:00 11:00:00 t Specialty/U [place]ette kes - Specialty rology Memori a /Urology Clinic l Clinic Outpati ent Clinics 2018-08-27 2018-08-27 [facility] [id number] 11:00:00 11:00:00 t [place] [employer] s - Drive [facility] Medicine Medicine Outpati ent Clinics 2018-08-24 2018-08-24 [facility] [id number] 10:21:00 10:21:00 t [place] [employer] s - Drive [facility] Medicine Outpati ent Clinics 2018-08-19 2018-08-19 [facility] [id number] 11:53:00 11:53:00 t [place] [employer] s - Drive [facility] Medicine Outpati ent Clinics 2018-08-18 2018-08-18 [facility] [id number] 14:00:00 14:00:00 t [place] [employer] - Vendor Registry [facility] Medicine Outpati ent Clinics 2018-04-01 2018-04-01 [facility] [id number] 09:50:00 09:50:[address] [facility] Medicine Outpati ent Clinics 2018-03-30 2018-03-30 [facility] [id number] [facility] 09:30:00 09:30:00 t [place] [employer] s [address] [facility] Medicine Outpati ent Clinics 2018-03-05 2018-03-05 [facility] [id number] [facility] 14:15:00 14:15:00 t Specialty/U Antionette kes - Specialty rology Memori a /Urology Clinic l Clinic Outpati ent Clinics 2018-02-23 2018-02-23 [facility] [id number] [facility] 15:03:00 15:03:00 t Specialty/U Antionette kes - Specialty rology Memori a /Urology Clinic l Clinic Outpati ent Clinics 2018-02-18 2018-02-18 [facility] [id number] [facility] 11:06:00 11:06:00 t Specialty/U Antionette kes - Specialty rology Memori a /Urology Clinic l Clinic Outpati ent Clinics 2018-02-16 2018-02-16 [facility] [id number] [facility] 13:17:00 13:17:00 t Specialty/U Antionette kes - Specialty rology Memori a /Urology Clinic l Clinic Outpati ent Clinics 2018-02-11 2018-02-11 [facility] [id number] [facility] 15:18:00 15:18:00 [place] [employer] s - Drive [facility] Medicine l Medicine Outpati ent Clinics 2018-01-29 2018-01-29 [facility] [id number] [facility] 08:53:00 08:53:00 t [place] [employer] s - Drive [facility] Medicine l Medicine Outpati ent Clinics 2018-01-27 2018-01-27 [facility] [id number] [facility] 10:45:00 10:45:00 t Specialty/U Antionette kes - Specialty rology Memori a /Urology Clinic l Clinic Outpati ent Clinics 2018-01-23 2018-01-23 [facility] [id number] 15:17:00 15:17:00 t [place] [employer] s - Drive [facility] l Medicine Outpati ent Clinics 2017-11-20 2017-11-20 [facility] [id number] [facility] 13:15:00 13:15:00 t [place] [employer] s - Drive [facility] Medicine l Medicine Outpati ent Clinics 2017-11-10 2017-11-10 [facility] [id number] 13:45:00 13:45:00 t [place] [employer] s - Drive [facility] Medicine l Medicine Outpati ent Clinics 2017-09-25 2017-09-25 [facility] [id number] 10:00:00 10:00:00 t [place] [employer] - Drive [facility] l Medicine Outpati ent Clinics 2017-07-31 2017-07-31 [facility] [id number] 16:56:00 16:56:00 t [place] [employer] - Drive [facility] Medicine Outpati ent Clinics 2017-07-01 2017-07-01 Outpatient Silvio Anguianot [id number] [facility] 10:23:00 10:23:00 t [employer] [facility] 2017-06-24 2017-06-24 Outpatient Braznilda Anguianot [id number] [facility] 10:15:00 10:15:00 t [employer] [facility] ent Clinics Results This patient has no known results.
--- OUTSIDE RECORDS SUMMARY | 2019-07-05 19:22 | XMS REPORT ---
:1945 Author Organization [employer] Care Team Providers Name Role Phone KauffmanSoto Provider Role Unavailable Allergies No Known Allergies Problems Problem Type Condition Code Onset Dates Condition Statu s Problem GERD (gastroesophageal reflux K21.9 Active disease) [...]
--- OUTSIDE RECORDS SUMMARY | 2019-07-05 19:22 | XMS REPORT ---
[...] Depression, unspecified depression F32.9 Active type Assessment Controlled type 2 diabetes mellitus E11.9 Active without complication, without long-term current use of insulin Problem Family history of diabetes mellitus Z83.3 Active Problem Constipation K59.00 Active Problem Hyperlipidemia, mixed E78.2 Active Problem Hypertriglyceridemia E78.1 Active Problem Family history of colon cancer Z80.0 Active Problem Osteopenia M85.80 Active Medications Medication Code System Code Instructions Start Date End Date Status Dosage Tradjenta [facility] [id number] 5 MG Orally Once Active 1 tablet a day Results No Known Results Summary Purpose eClinicalWorks Submission
[2019-07-05] MEDS ORDERED: HYDROCODONE/APAP 5/325 MG TAB ONE (19:53)
[2019-07-05] MEDS ORDERED: CIPROFLOXACIN HCL 500 MG TAB ONE (19:53)
[2019-07-05 20:22] VITALS: BP 133/89; TEMP 97.2; O2SAT 100
--- NOTE | 2019-07-12 12:33 | ER ---
Nurse's Notes [facility] Name: Shelby Mccormick Age: 73 yrs Sex: Female : 1945 Arrival Date: 07/05/2019 Time: 19:23 Bed 8 Private MD: Diagnosis: Cellulitis of other parts of limb-right leg Presentation: 07/04 19:32 Chief complaint: Patient states: [place] the beach [place]. [place] something at the front ca1 of my R ankle, kicked it off, had burning feeling after on the ankle. The day after, it started swelling, redness and was hot to touch. Today, hurt more and the pain is radiating down the R foot and up R leg. Reports nausea today and pain with walking. Coronavirus screen: Proceed with normal triage. Patient denies a cough. Patient denies shortness of breath or difficulty breathing. Patient denies measured and/or subjective temperature greater than 100.4F prior to today's visit. Patient denies travel on a cruise ship or to a country the [facility] currently lists as an affected area. Patient denies contact with known and/or suspected case of COVID-19. Ebola Screen: Patient negative for fever greater than or equal to 101.5 degrees Fahrenheit, and additional compatible Ebola Virus Disease symptoms Patient denies exposure to infectious person. Patient denies travel to an Ebola-affected area in the 21 days before illness onset. No symptoms or risks identified at this time. Initial Sepsis Screen: Does the patient meet any 2 criteria? No. Patient's initial sepsis screen is negative. Does the patient have a suspected source of infection? No. Patient's initial sepsis screen is negative. Risk Assessment: Do you want to hurt yourself or someone else? Patient reports no desire to harm self or others. Onset of symptoms was July 05, 2019. 19:32 Method Of Arrival: Wheelchair ca1 19:32 Acuity: GORDON 3 ca1 19:36 Coronavirus screen: Proceed with normal triage. Ebola Screen: No symptoms or risks ea identified at this time. Historical: - Allergies: 19:37 Latex, Natural Rubber; ca1 19:37 Meperidine; ca1 - PMHx: 19:37 acid reflux; Diabetes - NIDDM; High Cholesterol; ca1 - PSHx: 19:37 Cholecystectomy; Hysterectomy; colon surgery; ca1 - Immunization history:: Adult Immunizations up to date. - Social history:: Smoking status: Patient denies any tobacco usage or history of. Patient/guardian denies using alcohol, street drugs, The patient lives with family. - Family history:: not pertinent. Screenin:36 Abuse screen: Denies threats or abuse. Nutritional screening: No deficits noted. ea Tuberculosis screening: No symptoms or risk factors identified. Fall Risk None identified. Assessment: 19:33 General: Appears uncomfortable, Behavior is appropriate for age. Pain: Complains of ea pain in right leg. Neuro: Level of Consciousness is awake, alert, obeys commands, Oriented to person, place, time, situation. Cardiovascular: Patient's skin is warm and dry. Respiratory: Airway is patent Respiratory effort is even, unlabored, Respiratory pattern is regular, symmetrical. Derm: redness and swelling noted to right ankle Reports burning, pain. Musculoskeletal: Circulation, motion, and sensation intact. 19:54 Reassessment: Patient is alert, oriented x 3, equal unlabored respirations, skin rv warm/dry/pink. 19:55 Reassessment: PATIENT INSTRUCTED TO CALL THE FAMILY FOR TRANSPORTATION UPON DISCHARGE. rv Vital Signs: 19:32 BP 149 / 80; Pulse 88; Resp 16 S; Temp 97.2(TE); Pulse Ox 100% on R/A; Weight 76.2 kg ca1 (R); Pain 8/10; 19:36 BP 133 / 89; Pulse 88; Resp 18; Pulse Ox 100% ; ea ED Course: 19:23 Patient arrived in ED. ag3 19:30 Brittany Pineda MD is Attending Physician. ma2 19:33 Magda Kruger RN is Primary Nurse. ea 19:37 Triage completed. ca1 19:37 Arm band placed on right wrist. Patient placed in an exam room, on a stretcher, on ea pulse oximetry. 19:37 Patient has correct armband on for positive identification. Bed in low position. Call ea light in reach. Side rails up X2. 19:55 No provider procedures requiring assistance completed. Patient did not have IV access rv during this emergency room visit. Administered Medications: 19:50 Drug: [place] 5 mg-325 mg 1 tabs {Note: RASS 0.} Route: PO; rv 20:05 Follow up: Response: Medication administered at discharge. rv 19:50 Drug: Cipro 500 mg Route: PO; rv 20:05 Follow up: Response: Medication administered at discharge. rv 19:50 Drug: Clindamycin 300 mg Route: PO; rv 20:05 Follow up: Response: Medication administered at discharge. rv Outcome: 19:47 Discharge ordered by . nina 19:55 Discharged to home ambulatory. rv 19:55 Condition: good 19:55 Discharge instructions given to patient, Instructed on discharge instructions, follow up and referral plans. medication usage, Demonstrated understanding of instructions, follow-up care, medications, Prescriptions given X 3. 20:07 Patient left the ED. sg Signatures: Quang Jackson RN RN sg Magda Kruger RN RN Brittany Rosas MD MD ma2 Jose Stewart RN RN Dolly Jauregui ag3 Nelly Truong RN RN ca1
--- NOTE | 2019-07-12 12:33 | EDPHYS ---
Physician Documentation [facility] Name: Shelby Mccormick Age: 73 yrs Sex: Female : 1945 Arrival Date: 07/05/2019 Time: 19:23 Bed 8 Private MD: ED Physician Brittany Pineda HPI: 07/04 19:45 This 73 yrs old Female presents to ER via Wheelchair with complaints of Rt ma2 leg swelling. 19:45 The patient presents with an abrasion. Context: The problem was sustained beach. Onset: ma2 The symptoms/episode began/occurred suddenly, 1 day(s) ago. Associated signs and symptoms: Pertinent positives: rash, tingling, Pertinent negatives nausea, rash, tingling. Severity of symptoms: At their worst the symptoms were moderate, in the emergency department the symptoms are unchanged. The patient has not experienced similar symptoms in the past. Historical: - Allergies: 19:37 Latex, Natural Rubber; ca1 19:37 Meperidine; ca1 - PMHx: 19:37 acid reflux; Diabetes - NIDDM; High Cholesterol; ca1 - PSHx: 19:37 Cholecystectomy; Hysterectomy; colon surgery; ca1 - Immunization history:: Adult Immunizations up to date. - Social history:: Smoking status: Patient denies any tobacco usage or history of. Patient/guardian denies using alcohol, street drugs, The patient lives with family. - Family history:: not pertinent. ROS: 19:45 Constitutional: Negative for fever, chills, and weight loss. ma2 19:45 All other systems are negative. Exam: 19:45 Constitutional: This is a well developed, well nourished patient who is awake, alert, ma2 and in no acute distress. Neck: Trachea midline, no thyromegaly or masses palpated, and no cervical lymphadenopathy. Supple, full range of motion without nuchal rigidity, or vertebral point tenderness. No Meningismus. Chest/axilla: Normal chest wall appearance and motion. Nontender with no deformity. No lesions are appreciated. Cardiovascular: Regular rate and rhythm with a normal S1 and S2. No gallops, murmurs, or rubs. Normal PMI, no JVD. No pulse deficits. Respiratory: Lungs have equal breath sounds bilaterally, clear to auscultation and percussion. No rales, rhonchi or wheezes noted. No increased work of breathing, no retractions or nasal flaring. Abdomen/GI: Soft, non-tender, with normal bowel sounds. No distension or tympany. No guarding or rebound. No evidence of tenderness throughout. Back: No spinal tenderness. No costovertebral tenderness. Full range of motion. Skin: Warm, dry with normal turgor. Normal color with no rashes, no lesions, and no evidence of cellulitis. MS/ Extremity: right leg area of redness, no fluid collection no crepitaiton. Pulses equal, no cyanosis. Neurovascular intact. Full, normal range of motion. Neuro: Awake and alert, GCS 15, oriented to person, place, time, and situation. Cranial nerves II-XII grossly intact. Motor strength 5/5 in all extremities. Sensory grossly intact. Cerebellar exam normal. Normal gait. Vital Signs: 19:32 BP 149 / 80; Pulse 88; Resp 16 S; Temp 97.2(TE); Pulse Ox 100% on R/A; Weight 76.2 kg ca1 (R); Pain 8/10; 19:36 BP 133 / 89; Pulse 88; Resp 18; Pulse Ox 100% ; ea MDM: 19:30 Patient medically screened. ma2 19:45 Differential diagnosis: contusion, abrasion, tendonitis. Data reviewed: vital signs, ma2 nurses notes. Counseling: I had a detailed discussion with the patient and/or guardian regarding: the historical points, exam findings, and any diagnostic results supporting the discharge/admit diagnosis, the presence of at least one elevated blood pressure reading (>120/80) during this emergency department visit, the need for outpatient follow up. Response to treatment: the patient's symptoms have markedly improved after treatment. Administered Medications: 19:50 Drug: [place] 5 mg-325 mg 1 tabs {Note: RASS 0.} Route: PO; rv 20:05 Follow up: Response: Medication administered at discharge. rv 19:50 Drug: Cipro 500 mg Route: PO; rv 20:05 Follow up: Response: Medication administered at discharge. rv 19:50 Drug: Clindamycin 300 mg Route: PO; rv 20:05 Follow up: Response: Medication administered at discharge. rv Disposition: 07/05/19 19:47 Discharged to Home. Impression: Cellulitis of other parts of limb - right leg. - Condition is Stable. - Discharge Instructions: Cellulitis, Adult, [id number]. - Prescriptions for Clindamycin HCl 300 mg Oral Capsule - take 1 capsule by ORAL route every 6 hours for 10 days; 40 capsule. Cipro 500 mg Oral Tablet - take 1 tablet by ORAL route every 12 hours for 7 days; 14 tablet. Diclofenac Sodium 75 mg Oral Tablet Sustained Release - take 1 tablet by ORAL route 2 times per day; 30 tablet. - Medication Reconciliation Form, Thank You Letter, Antibiotic Education, Prescription Opioid Use form. - Follow up: Private Physician; When: Tomorrow; Reason: Continuance of care. Signatures: Quang Jackson RN RN Brittany Pineda MD MD ut2 Jose Stewart RN RN Nelly Truong RN CALLUM ca1 Corrections: (The following items were deleted from the chart) 19:47 19:47 07/05/2019 19:47 Discharged to Home. Impression: Cellulitis of other parts of ma2 limb - left leg. Condition is Stable. Prescriptions for Clindamycin HCl 300 mg Oral Capsule - take 1 capsule by ORAL route every 6 hours for 10 days; 40 capsule, Cipro 500 mg Oral Tablet - take 1 tablet by ORAL route every 12 hours for 7 days; 14 tablet, Diclofenac Sodium 75 mg Oral Tablet Sustained Release - take 1 tablet by ORAL route 2 times per day; 30 tablet. and Forms are Medication Reconciliation Form, Thank You Letter, Antibiotic Education, Prescription Opioid Use. Follow up: Private Physician; When: Tomorrow; Reason: Continuance of care. [facility] 20:07 19:47 07/05/2019 19:47 Discharged to Home. Impression: Cellulitis of other parts of sg limb - right leg. Condition is Stable. Prescriptions for Clindamycin HCl 300 mg Oral Capsule - take 1 capsule by ORAL route every 6 hours for 10 days; 40 capsule, Cipro 500 mg Oral Tablet - take 1 tablet by ORAL route every 12 hours for 7 days; 14 tablet, Diclofenac Sodium 75 mg Oral Tablet Sustained Release - take 1 tablet by ORAL route 2 times per day; 30 tablet. and Forms are Medication Reconciliation Form, Thank You Letter, Antibiotic Education, Prescription Opioid Use. Follow up: Private Physician; When: Tomorrow; Reason: Continuance of care. [facility]
== END 2019-07-05 20:07 | disposition home or self-care (01) ==
LOC: ER 19:20
DX: L03.115 Cellulitis of right lower limb (principal); Z88.8 Allergy status to other drugs, medicaments and biological substances; Z91.040 Latex allergy status; Z91.048 Other nonmedicinal substance allergy status
CPT/HCPCS: 99283

== ENCOUNTER 2020-03-26 14:46 | Emergency (ER) | payer OTHER ==
[2020-03-26 16:16] LABS: Urine Blood TRACE (NEG); Urine Glucose NEGATIVE (NEG); Urine Protein NEGATIVE (NEG)
[2020-03-26 17:50] LABS: Absolute Lymphocytes (CBC) 1.9 K/uL (0.7-4.9); Basophils % 0.5 % (0-1.3); Hematocrit 37.2 % (36.0-45.0); Lymphocytes % 29.7 % (15.3-44.8); MPV 8.3 fL (7.6-11.3)
[2020-03-26 17:54] LABS: Albumin 4.2 g/dL (3.4-5.0); Bilirubin Direct 0.1 mg/dL (0-0.2); Bilirubin Total 0.4 mg/dL (0.2-1.0); Potassium 3.7 mmol/L (3.5-5.1); Protein, Total 8.2 g/dL (6.4-8.2)
--- NOTE | 2020-03-26 18:25 | RAD REPORT ---
EXAM DESCRIPTION: CT - Abdomen Pelvis W Contrast - 03/26/2020 6:00 pm CLINICAL HISTORY: Abdominal pain COMPARISON: 2019 TECHNIQUE: Computed axial tomography of the abdomen pelvis was obtained. 100 cc Isovue-300 was admin istered intravenously. Oral contrast was not requested which limits evaluation of bowel. All CT scans are performed using dose optimization technique as appropriate and may include automated exposure control or mA/KV adjustment according to patient size. FINDINGS: Fatty liver. Cholecystectomy Spleen, pancreas, adrenal and right kidney appear unremarkable. Small low-density area left kidney re aches the periphery. There is no evidence of diverticulitis. Postsurgical changes involve the right colon. Hysterectomy. 2 1 millimeter fatty structure abuts the sigmoid colon IMPRESSION: Small low-density area left kidney reaches the periphery which may represent a mild pyel onephritis 21 millimeter fatty structure abuts the sigmoid colon which may represent epiploic appendagitis. Give n the lack of stranding within the fat this probably is relatively remote
--- NOTE | 2020-03-26 18:48 | ER ---
Nurse's Notes [facility] Name: Shelby Mccormick Age: 74 yrs Sex: Female : 1945 Arrival Date: 03/26/2020 Time: 14:50 Bed 19 Private MD: Diagnosis: Hematuria;Left Pyelonephritis Presentation: 03/26 15:03 Chief complaint: Patient states: L back pain for 1 week. Started having blood with ll1 wiping after urination yesterday. + lower abd pain. Coronavirus screen: Client denies travel out of the [place] in the last 14 days. At this time, the client does not indicate any symptoms associated with coronavirus-19. Ebola Screen: Patient denies travel to an Ebola-affected area in the 21 days before illness onset. Initial Sepsis Screen: Does the patient meet any 2 criteria? HR > 90 bpm. No. Patient's initial sepsis screen is negative. Does the patient have a suspected source of infection? Yes: Dysuria/Frequency/Urgency/UTI. Risk Assessment: Do you want to hurt yourself or someone else? Patient reports no desire to harm self or others. Onset of symptoms was March 25, 2020. 15:03 Method Of Arrival: Ambulatory ll1 15:03 Acuity: GORDON 3 ll1 Triage Assessment: 15:20 General: Appears in no apparent distress. uncomfortable, Behavior is cooperative, ae4 anxious. Pain: Complains of pain in lumbar area, left low back, left mid back, right mid back and right low back. EENT: No signs and/or symptoms were reported regarding the EENT system. Neuro: Level of Consciousness is awake, alert, obeys commands, Oriented to person, place, time, situation, Appropriate for age. Cardiovascular: Heart tones S1 S2 present Patient's skin is warm and dry. Rhythm is regular. Respiratory: Airway is patent Respiratory effort is even, unlabored, Respiratory pattern is regular, symmetrical. GI: No signs and/or symptoms were reported involving the gastrointestinal system. Abdomen is round Abd is soft and non tender X 4 quads. : Reports vaginal bleeding that is Patient reports blood tinged urine and light pink color when wiping after urinating. Derm: Skin is pink, warm \T\ dry. Musculoskeletal: Lower back pain. Historical: - Allergies: 15:03 Latex, Natural Rubber; ll1 15:03 Demerol; ll1 - PMHx: 15:03 acid reflux; Diabetes - NIDDM; High Cholesterol; ll1 - PSHx: 15:03 Cholecystectomy; Hysterectomy; colon surgery; rectocele; cataract repair; ll1 - Immunization history:: Flu vaccine is up to date. - Social history:: Smoking status: Patient denies any tobacco usage or history of. Screenin:09 Abuse screen: Denies threats or abuse. Nutritional screening: No deficits noted. ae4 Tuberculosis screening: No symptoms or risk factors identified. Fall Risk None identified. Assessment: 18:16 Reassessment: Patient appears in no apparent distress at this time. Patient and/or ae4 family updated on plan of care and expected duration. Pain level reassessed. Vital Signs: 15:03 BP 154 / 84; Pulse 100; Resp 17; Temp 97.4; Pulse Ox 99% ; Weight 76.2 kg; Height 5 ft. ll1 4 in. (162.56 cm); Pain 4/10; 15:20 BP 125 / 75; Pulse 89; Resp 18; Pulse Ox 99% on R/A; ae4 15:03 Body Mass Index 28.84 (76.20 kg, 162.56 cm) ll1 ED Course: 14:50 Patient arrived in ED. rg4 15:02 Arm band placed on Patient placed in an exam room, on a stretcher. ll1 15:05 Triage completed. ll1 15:20 Placed in gown. Bed in low position. Call light in reach. Side rails up X 1. Pulse ox ae4 on. NIBP on. Warm blanket given. 16:00 Urine collected: clean catch specimen, clear, antonio colored. jp3 16:05 Inserted saline lock: 22 gauge in left antecubital area, using aseptic technique. Blood ae4 collected. 16:14 Obdulio Mondragon PA is PHCP. [facility] [facility] 16:14 Esau Melendez MD is Attending Physician. [facility] 16:20 Corky Mercedes, CALLUM is Primary Nurse. ae4 18:47 Shahzad Hernandez MD is Referral Physician. m 19:14 No provider procedures requiring assistance completed. IV discontinued, intact, ae4 bleeding controlled, No redness/swelling at site. Pressure dressing applied. Administered Medications: 18:55 Drug: Rocephin 1 grams Route: IV; Rate: calculated rate; Site: left antecubital; ae4 19:01 Follow up: IV Status: Completed infusion ae4 Outcome: 18:48 Discharge ordered by . deborah 19:13 Patient left the ED. ae4 19:15 Discharged to home ambulatory. ae4 19:15 Condition: stable 19:15 Discharge instructions given to patient, Instructed on discharge instructions, follow up and referral plans. medication usage, Demonstrated understanding of instructions, Prescriptions given X 1. Signatures: Obdulio Mondragon PA PA jmm Garcia, Rubi rg4 Hadley Oakes jp3 Corky Mercedes RN RN ae4 Bo Abraham RN RN ll1
--- NOTE | 2020-03-26 18:49 | EDPHYS ---
Physician Documentation [facility] Name: Shelby Mccormick Age: 74 yrs Sex: Female : 1945 Arrival Date: 03/26/2020 Time: 14:50 Bed 19 Private MD: ED Physician Esau Melendez HPI: 03/26 17:11 This 74 yrs old Female presents to ER via Ambulatory with complaints of Back jmm Pain, Vaginal Bleeding, Abdominal Pain. 17:11 The patient presents with pain that is acute. Onset: The symptoms/episode jmm began/occurred gradually, 1 week(s) ago. The pain radiates to the abdomen. Associated signs and symptoms: Pertinent positives: hematuria. Modifying factors: The patient symptoms are alleviated by nothing, the patient symptoms are aggravated by any movement. Patient denies fever, vomiting, sob. States she noticed blood on her toilet paper after urinating. Denies fever, vomiting. Patient has had left flank pain for approx 1 week. . Historical: - Allergies: 15:03 Latex, Natural Rubber; ll1 15:03 Demerol; ll1 - PMHx: 15:03 acid reflux; Diabetes - NIDDM; High Cholesterol; ll1 - PSHx: 15:03 Cholecystectomy; Hysterectomy; colon surgery; rectocele; cataract repair; ll1 - Immunization history:: Flu vaccine is up to date. - Social history:: Smoking status: Patient denies any tobacco usage or history of. ROS: 17:11 Constitutional: Negative for fever, chills, and weight loss, Cardiovascular: Negative jmm for chest pain, palpitations, and edema, Respiratory: Negative for shortness of breath, cough, wheezing, and pleuritic chest pain. 17:11 Abdomen/GI: Positive for abdominal pain. 17:11 Back: Positive for flank pain, on the left. 17:11 : Positive for hematuria. 17:11 All other systems are negative. Exam: 17:11 Constitutional: This is a well developed, well nourished patient who is awake, alert, jmm and in no acute distress. Head/Face: atraumatic. Eyes: EOMI, no conjunctival erythema appreciated ENT: Moist Mucus Membranes Neck: Trachea midline, Supple Chest/axilla: Normal chest wall appearance and motion. Cardiovascular: Regular rate and rhythm. No edema appreciated Respiratory: Normal respirations, no respiratory distress appreciated 17:11 Skin: General appearance color normal MS/ Extremity: Moves all extremities, no obvious deformities appreciated, no edema noted to the lower extremities Neuro: Awake and alert, normal gait Psych: Behavior is normal, Mood is normal, Patient is cooperative and pleasant 17:11 Abdomen/GI: Inspection: abdomen appears normal, Bowel sounds: normal, Palpation: soft, mild abdominal tenderness, in the left lower quadrant. 17:11 Back: CVA tenderness, that is mild, is noted on the left. Vital Signs: 15:03 BP 154 / 84; Pulse 100; Resp 17; Temp 97.4; Pulse Ox 99% ; Weight 76.2 kg; Height 5 ft. ll1 4 in. (162.56 cm); Pain 4/10; 15:20 BP 125 / 75; Pulse 89; Resp 18; Pulse Ox 99% on R/A; ae4 15:03 Body Mass Index 28.84 (76.20 kg, 162.56 cm) ll1 MDM: 17:11 Patient medically screened. deborah 18:46 Data reviewed: vital signs, nurses notes. Counseling: I had a detailed discussion with deborah the patient and/or guardian regarding: the historical points, exam findings, and any diagnostic results supporting the discharge/admit diagnosis, lab results, radiology results, the need for outpatient follow up, to return to the emergency department if symptoms worsen or persist or if there are any questions or concerns that arise at home. ED course: Patient is alert and non toxic in appearance in [facility] ED. Due to painless hematuria, advised to follow up with urology for further evaluation. Patient is otherwise given strict return precautions. Patient understood and agrees with the plan of care. . 03/26 16:08 Order name: Urine Dipstick--Ancillary (enter results) 03/26 16:16 Order name: Urine Dipstick-Ancillary; Complete Time: 17:11 EDMO 03/26 17:11 Order name: Basic Metabolic Panel [facility] 03/26 17:11 Order name: CBC with Diff [facility] 03/26 17:11 Order name: Hepatic Function [facility] 03/26 17:11 Order name: Lipase [facility] 03/26 17:11 Order name: CT Abd/Pelvis - IV Contrast Only [facility] 03/26 17:54 Order name: Basic Metabolic Panel; Complete Time: 18:11 [facility] 03/26 17:54 Order name: Liver (Hepatic) Function; Complete Time: 18:11 [facility] 03/26 17:54 Order name: Lipase; Complete Time: 18:11 [facility] 03/26 18:00 Order name: CBC with Automated Diff; Complete Time: 18:11 [facility] 03/26 18:25 Order name: CREATININE WHOLE BLOOD; Complete Time: 18:31 [facility] 03/26 18:26 Order name: CT; Complete Time: 18:31 [facility] 03/26 17:11 Order name: IV Saline Lock; Complete Time: 17:28 [facility] 03/26 17:11 Order name: Labs collected and sent; Complete Time: 17: [facility] Administered Medications: 18:55 Drug: Rocephin 1 grams Route: IV; Rate: calculated rate; Site: left antecubital; ae4 19:01 Follow up: IV Status: Completed infusion ae4 Disposition: 03/26/20 18:48 Discharged to Home. Impression: Hematuria, Left Pyelonephritis. - Condition is Stable. - Discharge Instructions: Hematuria, Adult, Pyelonephritis, Adult. - Prescriptions for cefpodoxime 200 mg Oral Tablet - take 1 tablet by ORAL route every 12 hours with food; 20 tablet. - Medication Reconciliation Form, Thank You Letter, Antibiotic Education, Prescription Opioid Use form. - Follow up: Shahzad Hernandez MD; When: 2 - 3 days; Reason: Recheck today's complaints, Continuance of care, Re-evaluation by your physician. Addendum: 03/31/2020 19:22 Co-signature as Attending Physician, Esau Melendez MD I agree with the assessment and t w4 plan of care. Signatures: Dispatcher [employer] [facility] Obdulio Mondragon PA PA jmm Wadley, Terrence, MD MD tw4 Corky Mercedes RN RN ae4 Bo Abraham, CALLUM RN ll1 Corrections: (The following items were deleted from the chart) 03/26 19:13 18:48 03/26/2020 18:48 Discharged to Home. Impression: Hematuria; Left Pyelonephritis. ae4 Condition is Stable. Forms are Medication Reconciliation Form, Thank You Letter, Antibiotic Education, Prescription Opioid Use. Follow up: Shahzad Hernandez; When: 2 - 3 days; Reason: Recheck today's complaints, Continuance of care, Re-evaluation by your physician. deborah
[2020-03-26] MEDS ORDERED: CEFTRIAXONE/SWI 1gm 1 GM/10 ML SYR ONE (19:11)
[2020-03-26 19:26] VITALS: TEMP 97.4; O2SAT 99
[2020-03-26 19:27] VITALS: BP 125/75
== END 2020-03-26 19:13 | disposition home or self-care (01) ==
LOC: ER 14:46
DX: N12 Tubulo-interstitial nephritis, not specified as acute or chronic (principal); Z88.5 Allergy status to narcotic agent; Z91.040 Latex allergy status; Z91.048 Other nonmedicinal substance allergy status
CPT/HCPCS: 85025; 80048; 36415; 82565; 80076; 81003; 83690; 74177; 96374; 99284; Q9967; J0696

== ENCOUNTER 2020-08-14 13:55 | Emergency (ER) | payer MEDICARE, OTHER ==
--- OUTSIDE RECORDS SUMMARY | 2020-08-14 14:02 | XMS REPORT | Continuity of Care Document ---
:1945 Author Organization [facility] t Address [address] [place] [address] Care Team Providers Name Role Phone PCP Primary Care Physician Unavailable Advance Directives Directive Decision Effective Date Termination Date Comments Sour ce Yes N/A [facility] Problems Condition Condition Condition Status Onset Resolution Last Treating Co mments Source Name Details Category Date Date Treatment Clinician Date Problem Condition [facility] Allergies, Adverse Reactions, Alerts Allergy Allergy Status Severity Reaction(s) Onset Inactive Treating Comm ents Source Name Type Date Date Clinician Latex, Allergy Active 2020-0 [facility] Natural to [facility] Rubber substanc 00:00: [facility] No Known Allergy Active 2020-0 [facility] Drug to [facility] Allergie substanc 00:00: [facility] Demerol Adverse Active Info Not [facility] Latex Adverse Active Info Not [facility] Reaction Available [facility] Social History Social Habit Start Date Stop Date Quantity Comments Source Sex Assigned At 1945 [address] [facility]00 [facility] Smoking Status Start Date Stop Date Source Never smoked tobacco (finding) C [facility] Medications Ordered Filled Start Stop Current Ordering Indication Dosage Frequency Signature Comments Components Source Medication Medication Date Date Medication? Clinician (SIG) Name Name GlipiZIDE GlipiZIDE Yes [place] [address] [facility] ER ER 9-15 [place] with food [facility] Januvia Januvia Yes [place] [address] 9[facility]14 [place] [facility] Prednisone No 20mg [facility] (Deltasone) 8[facility] 20 Mg TAB 17:59: [facility] Tradjenta Tradjenta Yes [place] [address] [facility] [place] [facility] Ciprofloxac Ciprofloxac Yes [place] not [facility] in HCl in HCl [place] defined [facility] Omeprazole Omeprazole Yes [place] [address] [facility] [facility] [place] [facility] Metformin Metformin Yes [place] TAKE [address] HCl HCl [place] TABLET BY [facility] - MOUTH [facility]oria TWICE l DAILY WITH Outpati MEALS FOR ent 90 DAYS Clinics Brimonidine Brimonidine Yes [place] [address] [facility] [address] Tartrate-Ti Tartrate-Ti [place] into [facility] - molol molol affected [facility]ics Fish Oil Fish Oil Yes [place] [address] [facility] [place] [facility] Omeprazole Omeprazole Yes [place] [address] [facility] [facility] [place] [facility] Clindamycin Clindamycin Yes [facility] not [facility] HCl HCl [place] defined [facility] OneTouch OneTouch Yes [place] not [facility] Verio Verio [place] defined [facility] Metformin Metformin Yes [place] [address] [facility] [address] HCl HCl [place] with meals [facility] Oscal Oscal Yes [place] [address] [facility] [facility] 500/200 D-3 500/200 D-3 [place] with food [facility] Simvastatin Simvastatin Yes [place] [address] [facility] [place] in the [facility] - evening [facility] Tylenol Tylenol Yes [place] [address] [place] as needed [facility] Simvastatin Simvastatin Yes [place] [address] [facility] [place] in the [facility] - evening [facility] Amoxicillin Amoxicillin Yes [place] not [facility] -Pot -Pot [place] defined [facility] - Clavulanate Clavulanate M [facility] Lisinopril Lisinopril Yes [place] [address] [facility] [place] [facility] Lumigan Lumigan Yes [facility] not [facility] [place] defined [facility] Famotidine Famotidine Yes [place] [address] [facility] [facility] [place] at bedtime [facility] - as needed [facility] Docusate Docusate Yes [place] [address] Sodium Sodium [place] as needed [facility] Benadryl Benadryl Yes [place] 1/[address] [facility] [address] Allergy Allergy [place] at bedtime Antionette kes - as needed [facility] Dorzolamide Dorzolamide Yes [place] not [facility] -Timolol -Timolol [place] defined Sathish es - [facility] MiraLax MiraLax Yes [place] [address] [facility] [facility] [place] mixed with [facility] - 8 ounces [facility] of fluid l [facility] Flonase Flonase Yes [place] [address] spray [address] [facility] [place] each [facility] - nostril [facility] Solifenacin Solifenacin Yes [place] not [facility] Succinate Succinate [place] defined L [facility] - [facility] Latanoprost Latanoprost Yes [place] [address] [facility] [place] into [facility] - affected [facility] eye in the l evening [facility] Immunizations Ordered Filled Immunization Date Status Comments [facility] e Immunization Name Name FluAD FluAD 2018-11-[address] [facility]00 [facility] FluAD FluAD 2017-11-[address] [facility]00 [facility] Vital Signs Vital Name Observation Time Observation Value Comments Source Body Temperature 2019-10-07 18:20:00 98.9 [degF] [facility] Heart Rate 2019-10-07 18:20:00 85 /min [facility] Respiratory rate 2019-10-07 18:20:00 13 /[facility] Systolic 2019-10-07 18:20:00 134 mm[Hg] [facility] BP Diastolic 2019-10-07 18:20:00 73 mm[Hg] [facility] Heart Rate 2019-10-07 17:45:00 85 /min [facility] Respiratory rate 2019-10-07 17:45:00 13 /[facility] Systolic 2019-10-07 17:45:00 134 mm[Hg] [facility] BP Diastolic 2019-10-07 17:45:00 73 mm[Hg] [facility] Weight 2019-10-07 14:29:00 169 [lb_av] [facility] l BMI (Body Mass Index) 2019-10-07 14:29:00 29.0 kg/m2 [facility] Procedures This patient has no known procedures. Plan of Care Planned Activity Planned Date Details Comments Source Goal Patient referral [code RAMAN Sheth = [id number] ] Hospital Instructions OTHER [facility] Encounters Start End Encounter Admission Attending Care Care Encounter Source Date/Time Date/Time Type Type Clinicians Facility Department ID 2020-08-07 2020-08-07 Out[facility] [id number] 2020-06-02 2020-06-02 [facility] [id number] [facility] 2020-04-25 2020-04-25 [facility] [id number] [facility] 2020-04-07 2020-04-07 [facility] [id number] [facility] 2020-04-01 2020-04-01 [facility] [id number] [facility] 2020-02-14 2020-02-14 [facility] [id number] [facility] 2020-01-26 2020-01-26 Out[facility] [id number] [facility] 2019-12-22 2019-12-22 [facility] [id number] [facility] 2019-12-01 2019-12-01 Out[facility] [id number] [facility] 2019-11-09 2019-11-09 [facility] [id number] [facility] 2019-11-02 2019-11-02 [facility] [id number] [facility] 2019-10-26 2019-10-26 [facility] [id number] 16[facility]00:00 16:00:00 t [employer] - Auto[employer] [facility] Medicine Medicine Outpati ent Clinics 2019-10-25 2019-10-25 [facility] [id number] [facility] 2019-10-22 2019-10-22 [facility] [id number] 10[facility]14:00 10:14:00 t [employer] - [employer]Alert [facility] Medicine l Medicine Outpati ent Clinics 2019-10-12 2019-10-12 [facility] [id number] 15[facility]40:00 15:40:00 t [employer] - [employer]Alert [facility] Medicine l Medicine Outpati ent Clinics 2019-10-07 2019-10-07 Departed [facility] [id number] [facility] 15:40:00 18:20:00 Emergency [facility] [address] [facility] 2019-09-09 2019-09-09 [facility] [id number] 07:41:00 07:41:00 t Bone Bone and [facility] ent Clinics 2019-09-07 2019-09-07 [facility] [id number] 11:00:00 11:00:00 t [facility] and [facility] ent Clinics 2019-08-26 2019-08-26 [facility] [id number] 15:49:00 15:49:00 t [employer] - Drive [facility] Medicine Outpati ent Clinics 2019-08-19 2019-08-19 [facility] [id number] 16:46:00 16:46:00 t [place] [employer] s SupportPay Drive [facility] Family Medicine l Medicine Outpati ent Clinics 2019 2019 [facility] [id number] 08:40:00 08:40:00 t [employer] - Drive [facility] Family Medicine l Medicine Outpati ent Clinics 2019-06-21 2019-06-21 [facility] [id number] 10:15:00 10:15:00 t [place] [employer] s - Drive [facility] Family Medicine l Medicine Outpati ent Clinics 2019-05-25 2019-05-25 [facility] [id number] 14:23:00 14:23:00 t [place] [employer] s - Drive [facility] Family Medicine l Medicine Outpati ent Clinics 2019-04-30 2019-04-30 [facility] [id number] 09:13:00 09:13:00 t [place] [employer] s [employer] Drive [facility] Medicine l Medicine Outpati ent Clinics 2019-03-15 2019-03-15 [facility] [id number] 14:30:00 14:30:00 t [place] [employer] s - Drive [facility] Medicine Medicine Outpati ent Clinics 2019-03-08 2019-03-08 [facility] [id number] 11:30:00 11:30:00 [place] [employer] Luke s - Drive [facility] Medicine Outpati ent Clinics 2019-01-25 2019-01-25 [facility] [id number] 17:01:00 17:01:00 [place] [employer] Luke s - Drive [facility] Medicine Outpati ent Clinics 2018-12-23 2018-12-23 [facility] [id number] 11:04:00 11:04:00 [place] [employer] Luke s - Drive [facility] Medicine Outpati ent Clinics 2018-11-18 2018-11-18 [facility] [id number] 09:53:00 09:53:00 [place] [employer] s - Drive [facility] Medicine Outpati ent Clinics 2018-11-09 2018-11-09 [facility] [id number] 08:45:00 08:45:00 [place] [employer] s - Drive [facility] Medicine Outpati ent Clinics 2018-11-05 2018-11-05 [facility] [id number] 11:17:00 11:17:00 t [place] [employer] s - Drive [facility] Medicine Outpati ent Clinics 2018-11-05 2018-11-05 [facility] [id number] 08:00:00 08:00:00 t [place] [employer] LuLovely s - Drive [facility] Medicine Outpati ent Clinics 2018-10-20 2018-10-20 [facility] [id number] 09:00:00 09:00:00 t Specialty/U Antionette kes - Specialty rology [facility] Clinic Outpati ent Clinics 2018-10-13 2018-10-13 [facility] [id number] 16:23:00 16:23:00 [place] Solution[employer]ke s - Drive [facility] Medicine Outpati ent Clinics 2018-10-01 2018-10-01 [facility] [id number] 14:07:00 14:07:00 t Specialty/U Antionette kes - Specialty rology Memori a /Urology Clinic l Clinic Outpati ent Clinics 2018-09-18 2018-09-18 [facility] [id number] 11:28:00 11:28:00 t Specialty/U Antionette kes - Specialty rology [facility] a /Urology Clinic l Clinic Outpati ent Clinics 2018-09-03 2018-09-03 [facility] [id number] 11:00:00 11:00:00 t Specialty/U Antionette kes - Specialty rology [facility] a /Urology Clinic l Clinic Outpati ent Clinics 2018-08-27 2018-08-27 [facility] [id number] 11:00:00 11:00:00 [place] [employer] Luke s - Drive [facility] Family Medicine l Medicine Outpati ent Clinics 2018-08-24 2018-08-24 [facility] [id number] 10:21:00 10:21:00 t [place] [employer] Luke s - Drive [facility] Family Medicine l Medicine Outpati ent Clinics 2018-08-19 2018-08-19 [facility] [id number] 11:53:00 11:53:00 t [place] [employer] Luke s - Drive [facility] Family Medicine l Medicine Outpati ent Clinics 2018-08-18 2018-08-18 [facility] [id number] 14:00:00 14:00:00 [place] [employer] Luke s - Drive [facility] Family Medicine l Medicine Outpati ent Clinics 2018-04-01 2018-04-01 [facility] [id number] 09:50:00 09:50:00 [place] [employer] Luke s - Drive [facility] Family Medicine l Medicine Outpati ent Clinics 2018-03-30 2018-03-30 [facility] [id number] 09:30:00 09:30:00 [place] [employer] LuLovely s - Drive [facility] Family Medicine l Medicine Outpati ent Clinics 2018-03-05 2018-03-05 [facility] [id number] 14:15:00 14:15:00 t Specialty/U Antionette kes - Specialty rology Memori a /Urology Clinic l Clinic Outpati ent Clinics 2018-02-23 2018-02-23 [facility] [id number] 15:03:00 15:03:00 t Specialty/U Antionette kes - Specialty rology [facility] a /Urology Clinic l Clinic Outpati ent Clinics 2018-02-18 2018-02-18 [facility] [id number] 11:06:00 11:06:00 t Specialty/U Antionette kes - Specialty rology Memori a /Urology Clinic l Clinic Outpati ent Clinics 2018-02-16 2018-02-16 [facility] [id number] 13:17:00 13:17:00 t Specialty/U Antionette kes - Specialty rology Mem[facility] a /Urology Clinic l Clinic Outpati ent Clinics 2018-02-11 2018-02-11 [facility] [id number] 15:18:00 15:18:00 t [place] [employer] s - Drive [facility] Medicine Outpati ent Clinics 2018-01-29 2018-01-29 [facility] [id number] 08:53:00 08:53:00 t [place] [employer] s - Drive [facility] Medicine Outpati ent Clinics 2018-01-27 2018-01-27 [facility] [id number] 10:45:00 10:45:00 t Specialty/U Antionette kes - Specialty rology Memori a /Urology Clinic l Clinic Outpati ent Clinics 2018-01-23 2018-01-23 [facility] [id number] 15:17:00 15:17:00 t [place] [employer] s - Drive [facility] Medicine Outpati ent Clinics 2017-11-20 2017-11-20 [facility] [id number] 13:15:00 13:15:00 t [place] [employer] s - Drive [facility] Medicine Outpati ent Clinics 2017-11-10 2017-11-10 [facility] [id number] 13:45:00 13:45:00 t [place] [employer] s - Drive [facility] Medicine Outpati ent Clinics 2017-09-25 2017-09-25 [facility] [id number] 10:00:00 10:00:00 t [employer] LuLovely s - Drive [facility] Outpati ent Clinics 2017-07-31 2017-07-31 [facility] [id number] 16:56:00 16:56:00 t [place] [employer] s - Drive [facility] Outpati ent Clinics 2017-07-01 2017-07-01 [facility] [id number] 10:23:00 10:23:00 t [employer] - Drive [facility] Outpati ent Clinics 2017-06-24 2017-06-24 [facility] [id number] 10:15:00 10:15:00 t [employer] - AutoAlert [facility] Results Test Description Test Time Test Comments Results Result Comments Source Blood erythrocytes automated count (number/volume) 2019-09-12 7 15:25:00 Test Item Value Reference Range Interpretation Comme nts Red Blood Count (test code = 789-8) 4.39 10*6/uL [facility] hemoglobin measurement (mass/volume) 2019-10-07 15:25:00 Test Item Value Reference Range Interpretation Comments Hemoglobin (test code = 718-7) 13.8 g/dL [facility] hematocrit (volume fraction) 2019-10-07 15:25:00 Test Item Value Reference Range Interpretation Comments Hematocrit (test code = 4544-3) 37.4 % [facility] mean corpuscular volume (MCV) [id number] 15:25:00 Test Item Value Reference Range Interpretation Comments Mean Corpuscular Volume (test code = 85.4 fL 787-2) [facility] mean corpuscular hemoglobin (mass per erythrocyte)2019-10-07 15:25:00 Test Item Value Reference Range Interpretation Comments Mean Corpuscular Hemoglobin (test 31.5 pg code = 785-6) [facility] mean corpuscular hemoglobin concentration (MCHC) measurement ([id number] 15:25:00 Test Item Value Reference Range Interpretation Comments Mean Corpuscular Hemoglobin Concent 36.8 g/dL (test code = 786-4) [facility] eryth[facility] distribution width ratio 2019-10-07 15:25:00 Test Item Value Reference Range Interpretation Comments Red Cell Distribution Width (test code 13.6 % = 788-0) [facility] platelet count (count/volume) 2019-10-07 15:25:00 Test Item Value Reference Range Interpretation Comments Platelet Count (test code = 198 10*3/uL 777-3) [facility] platelet mean volume measurement 2019-10-07 15:25:00 Test Item Value Reference Range Interpretation Comments Mean Platelet Volume (test code = 8.4 fL 20427-9) [facility] neutrophil count as percentage of total [id number] 15:25:00 Test Item Value Reference Range Interpretation Comments Neutrophils (%) (Auto) (test code = 70.6 % 770-8) [facility] lymphocyte count as percentage of total [id number] 15:25:00 Test Item Value Reference Range Interpretation Comments Lymphocytes (%) (Auto) (test code = 22.7 % 736-9) [facility] monocyte count as percentage of total [id number] 15:25:00 Test Item Value Reference Range Interpretation Comments Monocytes (%) (Auto) (test code = 5.8 % 5905-5) [facility] eosinophil count as percentage of total [id number] 15:25:00 Test Item Value Reference Range Interpretation Comments Eosinophils (%) (Auto) (test code = 0.5 % 713-8) [facility] basophil count as percentage of total [id number] 15:25:00 Test Item Value Reference Range Interpretation Comments Basophils (%) (Auto) (test code = 0.4 % 706-2) [facility] neutrophil count (number/volume) 2019-10-07 15:25:00 Test Item Value Reference Range Interpretation Comments Neutrophils # (Auto) (test code 5.60 10*3/uL = 751-8) [facility] lymphocyte count (number/volume) 2019-10-07 15:25:00 Test Item Value Reference Range Interpretation Comments Lymphocytes # (Auto) (test code 1.80 10*3/uL = 731-0) [facility] monocyte count (number/volume) 2019-10-07 15:25:00 Test Item Value Reference Range Interpretation Comments Monocytes # (Auto) (test code = 0.50 10*3/uL 742-7) [facility] blood eosinophil [id number] 15:25:00 Test Item Value Reference Range Interpretation Comments Eosinophils # (Auto) (test code 0.00 10*3/uL = 711-2) [facility] basophil count (number/volume) 2019-10-07 15:25:00 Test Item Value Reference Range Interpretation Comments Basophils # (Auto) (test code = 0.00 10*3/uL 704-7) [facility] Azlerocyte sedimentation rate (ESR) by manual [id number] 15:25:00 Test Item Value Reference Range Interpretation Comments Erythrocyte Sedimentation Rate (test 8 mm/h code = 91766-2) [facility] sodium measurement (moles/volume) 2019-10-07 15:25:00 Test Item Value Reference Range Interpretation Comments Sodium Level (test code = 2951-2) 136 mmol/L [facility] or plasma potassium measurement (moles/volume)2019-10-07 15:25:00 Test Item Value Reference Range Interpretation Comments Potassium Level (test code = 4.0 mmol/L 2823-3) [facility] plasma chloride measurement (moles/volume) 2019-10-07 15:25:00 Test Item Value Reference Range Interpretation Comments Chloride Level (test code = 102 mmol/L 5-0) [facility] plasma total carbon dioxide measurement (moles/volume)2019-10-07 15:25:00 Test Item Value Reference Range Interpretation Comments Carbon Dioxide Level (test code = 22 mmol/L 2027-9) [facility] or plasma urea nitrogen measurement (mass/volume)2019-10-07 15:25:00 Test Item Value Reference Range Interpretation Comments Blood Urea Nitrogen (test code = 14 mg/dL 3094-0) [facility] creatinine measurement (mass/volume)2019-10-07 15:25:00 Test Item Value Reference Range Interpretation Comments Creatinine (test code = 2160-0) 0.8 mg/dL [facility] HospitalGlomerular filtration rate (GFR) estimation/1.73 sq m using creatinine measurement with MDRD equation in black [id number] 15:25:00 Test Item Value Reference Range Interpretation Comments Estimated GFR () (test >60 code = 60972-7) [facility] HospitalEGFR non- [id number] 15:25:00 Test Item Value Reference Range Interpretation Comments Estimated GFR (Non- >60 (test code = 77739-5) [facility] or plasma glucose measurement (mass/volume) 2019-10-07 15:25:00 Test Item Value Reference Range Interpretation Comments Glucose Level (test code = 2345-7) 233 mg/dL [facility] or plasma calcium measurement (mass/volume) 2019-10-07 15:25:00 Test Item Value Reference Range Interpretation Comments Calcium Level (test code = 37330-3) 9.4 mg/dL [facility] or plasma total bilirubin measurement (mass/volume)2019-10-07 15:25:00 Test Item Value Reference Range Interpretation Comments Total Bilirubin (test code = 0.6 mg/dL 1975-2) [facility] or plasma aspartate aminotransferase measurement (enzymatic activity/volume)2019-10-07 15:25:00 Test Item Value Reference Range Interpretation Comments Aspartate Amino Transf (AST/SGOT) 26 [iU]/L (test code = 1920-8) [facility] alanine aminotransferase measurement (enzymatic activity/volume)2019-10-07 15:25:00 Test Item Value Reference Range Interpretation Comments Alanine Aminotransferase (ALT/SGPT) 32 [iU]/L (test code = 1742-6) [facility] or plasma protein measurement (mass/volume) 2019-10-07 15:25:00 Test Item Value Reference Range Interpretation Comments Total Protein (test code = 2885-2) 7.2 g/dL [facility] or plasma albumin measurement (mass/volume) 2019-10-07 15:25:00 Test Item Value Reference Range Interpretation Comments Albumin (test code = 1751-7) 4.4 g/dL [facility] or plasma alkaline phosphatase measurement (enzymatic activity/volume)2019-10-07 15:25:00 Test Item Value Reference Range Interpretation Comments Alkaline Phosphatase (test code = 72 [iU]/L 6768-6) [facility]number/volume[facility] 2019-10-07 15:25:00 Test Item Value Reference Range Interpretation Comments White Blood Count (test code = 7.9 10*3/uL 6690-2) [facility]
[2020-08-14] MEDS ORDERED: KETOROLAC 30 MG/ML INJ ONE (17:24)
[2020-08-14] MEDS ORDERED: SMZ./TMP. 800/160 MG TABLET ONE (17:24)
--- NOTE | 2020-08-14 18:04 | EDPHYS ---
Physician Documentation [facility] Name: Shelby Mccormick Age: 75 yrs Sex: Female : 1945 Arrival Date: 08/14/2020 Time: 13:58 Bed 30 Private MD: ED Physician Jai Magaña HPI: 08/14 18:41 This 75 yrs old Female presents to ER via Ambulatory with complaints of kb Insect Bite, Leg Swelling. 18:41 the patient presents with a swollen area of the right ankle and right heel. kb Description: swollen. Onset: The symptoms/episode began/occurred 2 day(s) ago. Possible cause(s): insect sting. Associated signs and symptoms: Pertinent positives: swelling, Pertinent negatives: discharge, drainage, erythema, foreign body sensation, fever, headache, nausea, shortness of breath, vomiting. Modifying factors: the symptoms are alleviated by nothing, the symptoms are aggravated by pressure. Severity of symptoms: At their worst the symptoms were moderate, in the emergency department the symptoms are unchanged. The patient has not experienced similar symptoms in the past. The patient has not recently seen a physician. 18:44 Pt reports [place]. Reports pain and kb swelling to right ankle and heel where she was bitten. Historical: - Allergies: 14:26 Demerol; jl7 14:26 Latex, Natural Rubber; jl7 14:26 meperidine; jl7 - Home Meds: 14:26 Tradjenta 5 mg Oral tab 1 tab once daily [Active]; metformin 500 mg Oral tab 1 tab 2 jl7 times per day [Active]; simvastatin 20 mg Oral tab 1 tab once daily [Active]; omeprazole 40 mg Oral cpDR 1 cap once daily [Active]; Lumigan 0.01 % ophthalmic drop [Active]; lisinopril 2.5 mg Oral tab 1 tab once daily [Active]; Combigan 0.2-0.5 % ophthalmic drop 1 drop every 12 hours [Active]; - PMHx: 14:26 Diabetes - NIDDM; acid reflux; High Cholesterol; jl7 - Immunization history:: Adult Immunizations up to date, Client reports receiving the 2nd dose of the Covid vaccine. - Social history:: Smoking status: Patient denies any tobacco usage or history of. ROS: 18:35 Constitutional: Negative for fever, chills, and weight loss. kb 18:36 MS/extremity: Positive for abrasion, bite, pain, swelling, tenderness, of the right kb Achilles and right heel. 18:36 Skin: Positive for cellulitis, swelling, of the right heel and right ankle, insect bites. 18:36 All other systems are negative. Exam: 18:40 Constitutional: This is a well developed, well nourished patient who is awake, alert, kb and in no acute distress. Head/Face: Normocephalic, atraumatic. ENT: Moist Mucous membranes Respiratory: Respirations even and unlabored. No increased work of breathing, no retractions or nasal flaring. MS/ Extremity: Pulses equal, no cyanosis. Neurovascular intact. Full, normal range of motion. Neuro: Awake and alert, GCS 15, oriented to person, place, time, and situation. Moves all extremities. Normal gait. Psych: Awake, alert, with orientation to person, place and time. Behavior, mood, and affect are within normal limits. 18:40 Skin: cellulitis, that is mild, on the right ankle and right heel. Vital Signs: 14:24 BP 140 / 72; Pulse 86; Resp 17; Temp 98.6; Pulse Ox 99% on R/A; Weight 77.56 kg; Height jl7 5 ft. 4 in. (162.56 cm); Pain 6/10; 18:13 BP 143 / 72; Pulse 92; Resp 17; Pulse Ox 98% on R/A; ap3 14:24 Body Mass Index 29.35 (77.56 kg, 162.56 cm) jl7 MDM: 16:28 Patient medically screened. kb 18:24 Data reviewed: vital signs, nurses notes. Data interpreted: Pulse oximetry: on room air kb is 98 %. Interpretation: normal. Counseling: I had a detailed discussion with the patient and/or guardian regarding: the historical points, exam findings, and any diagnostic results supporting the discharge/admit diagnosis, radiology results, the need for outpatient follow up, a family practitioner, to return to the emergency department if symptoms worsen or persist or if there are any questions or concerns that arise at home. 08/14 16:49 Order name: Extremity Venous Unilateral Ltd; Complete Time: 18:18 kb Administered Medications: 17:12 Drug: Bactrim (trimethoprim-sulfamethoxazole) (160 mg-800 mg (DS) 1 tablet Route: PO; ap3 18:18 Follow up: Response: No adverse reaction ap3 17:13 Drug: Ketorolac 30 mg Route: IM; Site: right gluteus; ap3 18:18 Follow up: Response: No adverse reaction; Pain is decreased ap3 Disposition Summary: 08/14/20 18:04 Discharge Ordered Location: Home kb Condition: Stable kb Diagnosis - Cellulitis of right lower limb kb Followup: kb - With: Emergency Department - When: As needed - Reason: Worsening of condition Followup: kb - With: Private Physician - When: 2 - 3 days - Reason: Recheck today's complaints, Continuance of care, Re-evaluation by your physician Discharge Instructions: - Discharge Summary Sheet kb - Cellulitis, Adult, [id number] kb Forms: - Medication Reconciliation Form kb - Thank You Letter kb - Antibiotic Education kb - Prescription Opioid Use kb Prescriptions: - Bactrim DS 800-160 mg Oral Tablet - take 1 tablet by ORAL route every 12 hours for 10 days; 20 tablet; Refills: 0, kb Product Selection Permitted Addendum: 08/15/2020 18:47 Co-signature as Attending Physician, Jai Magaña MD I agree with the assessment and c gomez plan of care. Signatures: Dispatcher [employer] Isela Cheek, MARISA-C [employer]-Jai Ordaz MD MD cha Leal, Jahala, RN RN jl7 Ellen Vincent RN RN ap3 Corrections: (The following items were deleted from the chart) 08/14 18:40 18:35 Constitutional: Negative for fever, chills, and weight loss, kb kb
--- NOTE | 2020-08-14 18:04 | ER ---
Nurse's Notes [facility] Name: Shelby Mccormick Age: 75 yrs Sex: Female : 1945 Arrival Date: 08/14/2020 Time: 13:58 Bed 30 Private MD: Diagnosis: Cellulitis of right lower limb Presentation: 08/14 14:24 Chief complaint: Patient states: [place] by [place], swelling jl7 and pain to right leg. Coronavirus screen: Client denies travel out of the [place] in the last 14 days. At this time, the client does not indicate any symptoms associated with coronavirus-19. Ebola Screen: No symptoms or risks identified at this time. Initial Sepsis Screen: Does the patient meet any 2 criteria? No. Patient's initial sepsis screen is negative. Does the patient have a suspected source of infection? No. Patient's initial sepsis screen is negative. Risk Assessment: Do you want to hurt yourself or someone else? Patient reports no desire to harm self or others. Onset of symptoms was August 11, 2020. Care prior to arrival: None. 14:24 Method Of Arrival: Ambulatory jl7 14:24 Acuity: GORDON 3 jl7 Triage Assessment: 16:17 Bite description: bite sustained to right ankle by horse fly, animal information: ap3 vaccination(s) is not applicable. General: Appears in no apparent distress. comfortable. Historical: - Allergies: 14:26 Demerol; jl7 14:26 Latex, Natural Rubber; jl7 14:26 meperidine; jl7 - Home Meds: 14:26 Tradjenta 5 mg Oral tab 1 tab once daily [Active]; metformin 500 mg Oral tab 1 tab 2 jl7 times per day [Active]; simvastatin 20 mg Oral tab 1 tab once daily [Active]; omeprazole 40 mg Oral cpDR 1 cap once daily [Active]; Lumigan 0.01 % ophthalmic drop [Active]; lisinopril 2.5 mg Oral tab 1 tab once daily [Active]; Combigan 0.2-0.5 % ophthalmic drop 1 drop every 12 hours [Active]; - PMHx: 14:26 Diabetes - NIDDM; acid reflux; High Cholesterol; jl7 - Immunization history:: Adult Immunizations up to date, Client reports receiving the 2nd dose of the Covid vaccine. - Social history:: Smoking status: Patient denies any tobacco usage or history of. Screenin:17 Abuse screen: Denies threats or abuse. Nutritional screening: No deficits noted. ap3 Tuberculosis screening: No symptoms or risk factors identified. Fall Risk None identified. Assessment: 16:14 General: Appears in no apparent distress. Behavior is calm, cooperative, appropriate ap3 for age. Pain: Complains of pain in right leg Pain radiates to right quadriceps Pain began 2-3 days ago. Current management is with Benadryl every four hours at home is ineffective. Neuro: Level of Consciousness is awake, alert, obeys commands, Oriented to person, place, time, situation, Appropriate for age. Cardiovascular: Capillary refill < 3 seconds. Respiratory: Airway is patent Respiratory effort is even, unlabored, Respiratory pattern is regular, symmetrical. GI: No signs and/or symptoms were reported involving the gastrointestinal system. : No signs and/or symptoms were reported regarding the genitourinary system. EENT: No signs and/or symptoms were reported regarding the EENT system. Derm: Skin redness and swelling in right lower extremity. Skin is pink, warm \T\ dry. with a few reddened areas from what the patient states to be bites from horse flies at the beach. 17:56 Reassessment: Patient and/or family updated on plan of care and expected duration. Pain ap3 level reassessed. Patient is alert, oriented x 3, equal unlabored respirations, skin warm/dry/pink. Vital Signs: 14:24 BP 140 / 72; Pulse 86; Resp 17; Temp 98.6; Pulse Ox 99% on R/A; Weight 77.56 kg; Height jl7 5 ft. 4 in. (162.56 cm); Pain 6/10; 18:13 BP 143 / 72; Pulse 92; Resp 17; Pulse Ox 98% on R/A; ap3 14:24 Body Mass Index 29.35 (77.56 kg, 162.56 cm) jl7 ED Course: 13:58 Patient arrived in ED. as 14:26 Triage completed. jl7 14:26 Arm band placed on right wrist. jl7 14:27 Patient placed in waiting room, Patient notified of wait time. jl7 16:14 Ellen Vincent, CALLUM is Primary Nurse. ap3 16:18 Patient has correct armband on for positive identification. Bed in low position. Call ap3 light in reach. Pulse ox on. NIBP on. Door closed. Noise minimized. 16:28 Isela Yung FNP-C is [facility]. kb 16:28 Jai Magaña MD is Attending Physician. kb 17:54 US Extremity Venous Unilateral Ltd In Process Unspecified. EDMS 18:13 No provider procedures requiring assistance completed. Patient did not have IV access ap3 during this emergency room visit. Administered Medications: 17:12 Drug: Bactrim (trimethoprim-sulfamethoxazole) (160 mg-800 mg (DS) 1 tablet Route: PO; ap3 18:18 Follow up: Response: No adverse reaction ap3 17:13 Drug: Ketorolac 30 mg Route: IM; Site: right gluteus; ap3 18:18 Follow up: Response: No adverse reaction; Pain is decreased ap3 Outcome: 18:04 Discharge ordered by MD. kb 18:18 Discharged to home ambulatory. ap3 18:18 Condition: good 18:18 Discharge instructions given to patient, Instructed on discharge instructions, follow up and referral plans. medication usage, Demonstrated understanding of instructions, follow-up care, medications, Prescriptions given X 1. 18:20 Patient left the ED. ap3 Signatures: Dispatcher [employer] EDFL Isela Yung FNP-C FNP-Ckb Martinez, Amelia as Leal, Jahala, RN RN jl7 Ellen Vincent RN RN ap3
--- NOTE | 2020-08-14 18:15 | RAD REPORT ---
EXAM DESCRIPTION: US - Extremity Venous Uni Ltd - 08/14/2020 5:54 pm CLINICAL HISTORY: Pain;Swelling Leg swelling and edema. COMPARISON: No comparisons FINDINGS: Right lower extremity venous system was interrogated with Doppler technique. Normal flow, compressibility and augmentation was noted. There is no DVT present. IMPRESSION: No evidence of right lower extremity deep venous thrombosis.
[2020-08-14 18:24] VITALS: TEMP 98.6
[2020-08-14 18:26] VITALS: BP 143/72; O2SAT 98
== END 2020-08-14 18:20 | disposition home or self-care (01) ==
LOC: ER 13:55
DX: L03.115 Cellulitis of right lower limb (principal); E11.9 Type 2 diabetes mellitus without complications; Z88.5 Allergy status to narcotic agent; Z88.8 Allergy status to other drugs, medicaments and biological substances; Z91.040 Latex allergy status; Z91.048 Other nonmedicinal substance allergy status
CPT/HCPCS: 93971; 96372; 99284

== ENCOUNTER 2023-11-24 22:39 | Emergency (ER) | payer OTHER ==
--- OUTSIDE RECORDS SUMMARY | 2023-11-24 22:43 | XMS REPORT | Continuity of Care Document ---
Author Name Unknown Address [address] [facility] [address] [place] [address] [facility] thconnect Address [address] [facility] [place] [address] Care Team Providers Care Golf Ball Marker Name Role Phone No, Pcp Primary Care Physician [phone] Olivier Kauffmanh M Attending Clinician Unavailable JASMIN DAVALOS Attending Clinician Unavail able ROSHNI RAMACHANDRAN Attending Clinician Unavailable AURORA MARTINEZ Attending Clinician UnavailAurora Singh MD Attending Clinician [phone] Erin Holder CMA Attending Clinician Unavail able VICKY_SHANNANA Attending Clinician Unavailable Flaca Curran Attending Clinician Unavailab BERONICA Yarbrough Attending Clinician Unava ilANTHONY Yu Attending Clinician Unavailab Mervat Fisher Attending Clinician Unavailable CHRISTIANO_GCGerZW_Kaxavieryala_S Attending Clinician UnavailMERVAT Julian Attending Clinician Unavailable DR ROSHNI RAMACHANDRAN Attending Clinician Unavailable [phone] Attending Clinician Unavailable Jackson Attending Clinician Unavailable MARLY ZAYAS Attending Clinician Unavailab ZAHRA Ayoub Attending Clinician UnavailJERSEY Carlson Attending Clinician Unav ailable SHIRA WHALEY Attending Clinician Unav ailable Faby-Mbayo_A_AH Attending Clinician Unavailable LUCIANOREEN_SHEFALIHANA Admitting Clinician Unavailable CHRISTIANO_GCBZW_Kadiyala_S Admitting Clinician UnavailDR ROSHNI Mart Admitting Clinician Unavailable Jackson Admitting Clinician Unavailable Faby-Mbayo_A_AH Admitting Clinician Unavailable Payers Payer Name Policy Type Policy Number Effective Date Expirati on Date Source [employer] MEDICARE Medicare [id number] 2023 00:00:00 [place]AC[place]/ADV ANTAGE - HMO) [id number] 2022 00:00:00 [place]PLAC[place]/ADV ANTAGE - HMO) [id number] 2021 00:00:00 [facility] MEDICARE ADVANTAGE WELLMED C1 [id number] [facility] HUMANA MEDICARE C1 [id number] Comm on [facility] HUMANA MEDICARE C1 [id number] Comm on [facility] HUMANA MEDICARE C1 [id number] Comm on [facility] HUMANA C1 [id number] [facility] Wellcare C1 [id number] 2017 00:00:00 [facility] C[facility] [id number] 2017 00:00:00 [facility] Problems Condition Name Condition Details Condition Category Status Onset Date Resolution Date Last Treatment Date Treating Clinician Comments Source Intestinal metaplasia of gastric mucosa Intestinal Metaplasia of Gastric Mucosa Problem Active 04-14 00:00: 00 [facility] Diabetes mellitus Diabetes Mellitus Problem Active 03-07 00:00: 00 [facility] Gastroesop hageal reflux disease without esophagiti s Gastroesop hageal Reflux Disease without Esophagiti s Problem Active 03-07 00:00: 00 [facility] 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 Problem Active 03-07 00:00: 00 [facility] 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 Active 2017-02 00:00: 00 [facility] Problem Condition [facility] [id number] Urinary incontinen ce, unspecifie d type Problem Active [facility] Family history of malignant neoplasm of gastrointe stinal tract Family history of colon cancer Problem Active [facility] Mixed hyperlipid emia Hyperlipid emia, mixed Problem Active [facility] Constipati on Constipati on Problem Active [facility] FH: Diabetes mellitus Family history of diabetes mellitus Problem Active [facility] Osteopenia Osteopenia Problem Active C [facility] Hypertrigl yceridemia Hypertrigl yceridemia Problem Active [facility] Allergic rhinitis Allergic rhinitis Problem Active [facility] [id number] Nonmelanom a skin cancer Problem Active [facility] [id number] Controlled type 2 diabetes mellitus without complicati on, without long-term current use of insulin Problem Active [facility] [id number] Bladder spasm Problem Active [facility] Family history of ischemic heart disease Family history of cardiac disorder Problem Active [facility] [id number] Arthritis of knee, right Problem Active [facility] Gastroesop hageal reflux disease GERD (gastroeso phageal reflux disease) Problem Active [facility] [id number] Depression , unspecifie d depression type Problem Active [facility] [id number] Glaucoma of both eyes, unspecifie d glaucoma type Problem Active [facility] [id number] Microalbum inuria Problem Active [facility] [id number] Primary adenocarci noma of ascending colon Problem Active [facility] Allergies, Adverse Reactions, Alerts Allergy Name Allergy Type Status Severity Reaction(s) Onset Date Inactive Date Treating Clinician Comments Source latex DA Active U Redness of Skin 2022-02 00:00: 00 [facility] Unable to Assess DA Active U 2022-02 00:00: 00 [facility] Latex, Natural Rubber Allergy to substanc e Active Unknown 10-06 00:00: 00 [facility] No Known Drug Allergie s Allergy to substanc e Active Unknown 10-06 00:00: 00 [facility] ALLERGIE S NOT ON FILE SYSTEMIC Active [facility] NO KNOWN ALLERGIE S SYSTEMIC Active [facility] meperidi ne meperidi ne Active Unknown [facility] Latex Latex Active Unknown [facility] NO KNOWN ALLERGIE S SYSTEMIC Active MHEOUT NO KNOWN ALLERGIE S SYSTEMIC Active M[facility]OUT Social History Social Habit Start Date Stop Date Quantity Comments Source Gender identity [place] [facility] Sexual orientation [facility] History of Tobacco Use [facility] Sex Assigned At [facility] Alcoholic beverage intake 2023-10-01 00:00:00 2023-10-01 00:00:00 Lifetime non-drinker (finding) [facility] History of Social function 2023-10-01 00:00:00 2023-10-01 00:00:00 [facility] Smoking Status Start Date Stop Date Source Never smoked tobacco [facility] Tobacco smoking consumption unknown [facility] Medications Ordered Medication Name Filled Medication Name Start Date Stop Date Current Medication? Ordering Clinician Indication Dosage Frequency Signature (SIG) Comments Components Source lisinopril 2.5 MG tablet lisinopril 2.5 MG tablet 09-30 10:47: 30 Yes 2.5mg QD Take 2.5 mg by mouth 1 time each day. Bahman Trivedi [facility] metFORMIN (Glucophage ) 500 MG tablet metFORMIN (Glucophage ) 500 MG tablet 09-30 10:47: 30 Yes 500mg Take 500 mg by mouth in the morning and 500 mg in the evening. Take with meals. Bahman Trivedi [facility] simvastatin (Zocor) 20 MG tablet simvastatin (Zocor) 20 MG tablet 09-30 10:47: 30 Yes 20mg Take 20 mg by mouth in the evening. Bahman Trivedi [facility] amLODIPine (Norvasc) 5 MG tablet amLODIPine (Norvasc) 5 MG tablet 08-10 00:00: 00 Yes 1{tbl} QD Take 1 tablet by mouth 1 time each day. Bahman Trivedi [facility] dorzolamide (Trusopt) 2 % ophthalmic solution dorzolamide (Trusopt) 2 % ophthalmic solution 07-10 00:00: 00 Yes 1[drp] QD Administer 1 drop into both eyes 1 time each day. Bahman Trivedi [facility] latanoprost (Xalatan) 0.005 % ophthalmic solution latanoprost (Xalatan) 0.005 % ophthalmic solution 06-18 00:00: 00 Yes 1[drp] Administer 1 drop into both eyes at bedtime. Bahman Trivedi [facility] baclofen (Lioresal) 10 MG tablet baclofen (Lioresal) 10 MG tablet 4-11 00:00: 00 Yes 10mg Q.5D Take 10 mg by mouth in the morning and 10 mg in the evening. Bahman Trivedi [facility] vitamin C 500 MG tablet vitamin C 500 MG tablet 18 00:00: 00 04-27 23:59 :00 No 500mg QD Take 500 mg by mouth 1 time each day. Bahman Trivedi [facility] cholecalcif angela (Vitamin D) 50 MCG (2000 UT) capsule cholecalcif angela (Vitamin D) 50 MCG (2000 UT) capsule 2- 00:00: 00 Yes 50ug QD Take 50 mcg by mouth 1 time each day. Bahman Trivedi [facility] zinc sulfate (Zincate) 220 (50 Zn) MG capsule zinc sulfate (Zincate) 220 (50 Zn) MG capsule - 00:00: 00 03-31 23:59 :00 No 50mg{el emental 'zinc} QD Take 50 mg of elemental zinc by mouth 1 time each day. Bahman Trivedi [facility] omeprazole (PriLOSEC) [address] capsule omeprazole (PriLOSEC) [address] capsule 1-15 00:00: 00 Yes 1{capsu le} QD Take 1 capsule by mouth 1 time each day. Bahman Trivedi [facility] dorzolamide -timolol (Cosopt) 2-0.5 % ophthalmic solution dorzolamide -timolol (Cosopt) 2-0.5 % ophthalmic solution 2022-02 1-09 00:00: 00 Yes 1[drp] Q.5D Administer 1 drop into both eyes in the morning and 1 drop in the evening. Bahman Trivedi [facility] acetaminoph en 300 mg-codeine 30 mg tablet TAKE 1 TABLET BY MOUTH IN THE MORNING AND IN THE EVENING FOR 7 DAYS acetaminoph en 300 mg-codeine 30 mg tablet TAKE 1 TABLET BY MOUTH IN THE MORNING AND IN THE EVENING FOR 7 DAYS 7-06 00:00: 00 No acetaminop hen 300 mg-codeine 30 mg tablet TAKE 1 TABLET BY MOUTH IN THE MORNING AND IN THE EVENING FOR 7 DAYS [facility] [employer] acetaminoph en 300 mg-codeine 30 mg tablet TAKE 1 TABLET BY MOUTH IN THE MORNING AND IN THE EVENING FOR 7 DAYS acetaminoph en 300 mg-codeine 30 mg tablet TAKE 1 TABLET BY MOUTH IN THE MORNING AND IN THE EVENING FOR 7 DAYS 06 00:00: 00 No acetaminop hen 300 mg-codeine 30 mg tablet TAKE 1 TABLET BY MOUTH IN THE MORNING AND IN THE EVENING FOR 7 DAYS [facility] [place] 32G X 6 MM [place] 32G X 6 MM 11-07 00:00: 00 No [place] 32G X 6 MM [place] 32G X 6 MM [place] 32G X 6 MM 11-07 00:00: 00 No [place] 32G X 6 MM Ciprofloxac in HCl 500 MG Ciprofloxac in HCl 500 MG 2-20 00:00: 00 04-08 00:00 :00 No 1{table t} BID Ciprofloxa jose HCl 500 MG GlipiZIDE ER GlipiZIDE ER 915 00:00: 00 Yes Soto Kauffman 1 tablet with food [facility] Januvia Januvia 914 00:00: 00 Yes Soto Kauffman 1 tablet [facility] Prednisone (Deltasone) 20 Mg TAB 8 17:59: 00 No 20mg Daily [facility] Prednisone (Deltasone) 20 Mg TAB 8 17:59: 00 No 20mg [facility] fluticasone (Flonase) 50 MCG/ACT nasal spray fluticasone (Flonase) 50 MCG/ACT nasal spray 1-08 00:00: 00 Yes 1{spray } QD Administer 1 spray into each nostril 1 time each day. Bahman Hyatt aspirin aspirin No aspirin M elizabeth da [facility] Ozempic 0.25 mg or 0.5 mg (2 mg/3 mL) subcutaneou s pen injector INJECT 0.5 MG SUBCUTANEOU SLY WEEKLY Ozempic 0.25 mg or 0.5 mg (2 mg/3 mL) subcutaneou s pen injector INJECT 0.5 MG SUBCUTANEOU SLY WEEKLY No Ozempic 0.25 mg or 0.5 mg (2 mg/3 mL) subcutaneo us pen injector INJECT 0.5 MG SUBCUTANEO USLY WEEKLY [facility] escitalopra m 10 mg tablet TAKE 1 TABLET BY MOUTH 1 TIME EACH DAY. escitalopra m 10 mg tablet TAKE 1 TABLET BY MOUTH 1 TIME EACH DAY. No escitalopr am 10 mg tablet TAKE 1 TABLET BY MOUTH 1 TIME EACH DAY. [facility] mupirocin 2 % topical ointment APPLY TO AFFECTED AREA 3 TIMES A DAY FOR 7 DAYS mupirocin 2 % topical ointment APPLY TO AFFECTED AREA 3 TIMES A DAY FOR 7 DAYS No mupirocin 2 % topical ointment APPLY TO AFFECTED AREA 3 TIMES A DAY FOR 7 DAYS [facility] OneTouch Delica Plus Lancet 33 gauge USE 1 TO CHECK GLUCOSE ONCE DAILY OneTouch Delica Plus Lancet 33 gauge USE 1 TO CHECK GLUCOSE ONCE DAILY No OneTouch Delica Plus Lancet 33 gauge USE 1 TO CHECK GLUCOSE ONCE DAILY [facility] OneTouch Verio test strips USE TO TEST SUGAR 3 TIMES A DAY IN THE AM, NOON,A ND EVENING OneTouch Verio test strips USE TO TEST SUGAR 3 TIMES A DAY IN THE AM, NOON,A ND EVENING No OneTouch Verio test strips USE TO TEST SUGAR 3 TIMES A DAY IN THE AM, NOON,A ND EVENING [facility] Ozempic 0.25 mg or 0.5 mg (2 mg/3 mL) subcutaneou s pen injector INJECT 0.5 MG SUBCUTANEOU SLY WEEKLY Ozempic 0.25 mg or 0.5 mg (2 mg/3 mL) subcutaneou s pen injector INJECT 0.5 MG SUBCUTANEOU SLY WEEKLY No Ozempic 0.25 mg or 0.5 mg (2 mg/3 mL) subcutaneo us pen injector INJECT 0.5 MG SUBCUTANEO USLY WEEKLY [facility] cyclobenzap rine 5 mg tablet TAKE 1 TABLET (5 MG TOTAL) BY MOUTH 2 (TWO) TIMES A DAY IF NEEDED FOR MUSCLE SPASMS cyclobenzap rine 5 mg tablet TAKE 1 TABLET (5 MG TOTAL) BY MOUTH 2 (TWO) TIMES A DAY IF NEEDED FOR MUSCLE SPASMS No cyclobenza samira 5 mg tablet TAKE 1 TABLET (5 MG TOTAL) BY MOUTH 2 (TWO) TIMES A DAY IF NEEDED FOR MUSCLE SPASMS [facility] diclofenac sodium 75 mg tablet,rubio yed release Take 1 tablet twice a day by oral route. diclofenac sodium 75 mg tablet,rubio yed release Take 1 tablet twice a day by oral route. No 1 BID diclofenac sodium 75 mg tablet,del ayed release Take 1 tablet twice a day by oral route. [facility] escitalopra m 10 mg tablet TAKE 1 TABLET BY MOUTH 1 TIME EACH DAY. escitalopra m 10 mg tablet TAKE 1 TABLET BY MOUTH 1 TIME EACH DAY. No escitalopr am 10 mg tablet TAKE 1 TABLET BY MOUTH 1 TIME EACH DAY. [facility] OneTouch Delica Plus Lancet 33 gauge USE 1 TO CHECK GLUCOSE ONCE DAILY OneTouch Delica Plus Lancet 33 gauge USE 1 TO CHECK GLUCOSE ONCE DAILY No OneTouch Delica Plus Lancet 33 gauge USE 1 TO CHECK GLUCOSE ONCE DAILY [facility] OneTouch Verio test strips USE TO TEST SUGAR 3 TIMES A DAY IN THE AM, NOON,A ND EVENING OneTouch Verio test strips USE TO TEST SUGAR 3 TIMES A DAY IN THE AM, NOON,A ND EVENING No OneTouch Verio test strips USE TO TEST SUGAR 3 TIMES A DAY IN THE AM, NOON,A ND EVENING [facility] Ozempic 0.25 mg or 0.5 mg (2 mg/3 mL) subcutaneou s pen injector INJECT 0.5 MG SUBCUTANEOU SLY WEEKLY Ozempic 0.25 mg or 0.5 mg (2 mg/3 mL) subcutaneou s pen injector INJECT 0.5 MG SUBCUTANEOU SLY WEEKLY No Ozempic 0.25 mg or 0.5 mg (2 mg/3 mL) subcutaneo us pen injector INJECT 0.5 MG SUBCUTANEO USLY WEEKLY [facility] diazepam 10 mg tablet TAKE 1 TABLET BY MOUTH EVERY DAY NEEDED diazepam 10 mg tablet TAKE 1 TABLET BY MOUTH EVERY DAY NEEDED No diazepam 10 mg tablet TAKE 1 TABLET BY MOUTH EVERY DAY NEEDED [facility] glipizide ER 10 mg tablet, extended release 24 hr TAKE 1 TABLET BY MOUTH ONCE DAILY WITH FOOD glipizide ER 10 mg tablet, extended release 24 hr TAKE 1 TABLET BY MOUTH ONCE DAILY WITH FOOD No glipizide ER 10 mg tablet, extended release 24 hr TAKE 1 TABLET BY MOUTH ONCE DAILY WITH FOOD [facility] neomycin-po lymyxin-hyd rocort 3.5 mg/mL-10,00 0 unit/mL-1 % ear solution PLEASE SEE ATTACHED FOR DETAILED DIRECTIONS neomycin-po lymyxin-hyd rocort 3.5 mg/mL-10,00 0 unit/mL-1 % ear solution PLEASE SEE ATTACHED FOR DETAILED DIRECTIONS No neomycin-p olymyxin-h ydrocort 3.5 mg/mL-10,0 00 unit/mL-1 % ear solution PLEASE SEE ATTACHED FOR DETAILED DIRECTIONS [facility] OneTouch Delica Plus Lancet 33 gauge USE 1 TO CHECK GLUCOSE ONCE DAILY OneTouch Delica Plus Lancet 33 gauge USE 1 TO CHECK GLUCOSE ONCE DAILY No OneTouch Delica Plus Lancet 33 gauge USE 1 TO CHECK GLUCOSE ONCE DAILY [facility] OneTouch Verio test strips 1 TWICE DAILY USE DIRECTED OneTouch Verio test strips 1 TWICE DAILY USE DIRECTED No OneTouch Verio test strips 1 TWICE DAILY USE DIRECTED [facility] Ozempic 0.25 mg or 0.5 mg (2 mg/1.5 mL) subcutaneou s pen injector INJECT 0.5 MG UNDER THE SKIN PER WEEK Ozempic 0.25 mg or 0.5 mg (2 mg/1.5 mL) subcutaneou s pen injector INJECT 0.5 MG UNDER THE SKIN PER WEEK No Ozempic 0.25 mg or 0.5 mg (2 mg/1.5 mL) subcutaneo us pen injector INJECT 0.5 MG UNDER THE SKIN PER WEEK [facility] sulfamethox azole 800 mg-trimetho prim 160 mg tablet TAKE 1 TABLET BY MOUTH EVERY 12 HOURS FOR 10 DAYS PRESCRIBED BY FEMI HOANG sulfamethox azole 800 mg-trimetho prim 160 mg tablet TAKE 1 TABLET BY MOUTH EVERY 12 HOURS FOR 10 DAYS PRESCRIBED BY FEMI HOANG No sulfametho xazole 800 mg-trimeth oprim 160 mg tablet TAKE 1 TABLET BY MOUTH EVERY 12 HOURS FOR 10 DAYS PRESCRIBED BY FEMI HOANG [facility] cyclobenzap rine 5 mg tablet TAKE 1 TABLET (5 MG TOTAL) BY MOUTH 2 (TWO) TIMES A DAY IF NEEDED FOR MUSCLE SPASMS cyclobenzap rine 5 mg tablet TAKE 1 TABLET (5 MG TOTAL) BY MOUTH 2 (TWO) TIMES A DAY IF NEEDED FOR MUSCLE SPASMS No cyclobenza samira 5 mg tablet TAKE 1 TABLET (5 MG TOTAL) BY MOUTH 2 (TWO) TIMES A DAY IF NEEDED FOR MUSCLE SPASMS [facility] Medrol (Maximo) 4 mg tablets in a dose pack Take 1 dose pk by oral route. Medrol (Maximo) 4 mg tablets in a dose pack Take 1 dose pk by oral route. No 1dose pk(s) Medrol (Maximo) 4 mg tablets in a dose pack Take 1 dose pk by oral route. [facility] OneTouch Delica Plus Lancet 33 gauge USE 1 TO CHECK GLUCOSE ONCE DAILY OneTouch Delica Plus Lancet 33 gauge USE 1 TO CHECK GLUCOSE ONCE DAILY No OneTouch Delica Plus Lancet 33 gauge USE 1 TO CHECK GLUCOSE ONCE DAILY [facility] OneTouch Verio test strips USE TO TEST SUGAR 3 TIMES A DAY IN THE AM, NOON,A ND EVENING OneTouch Verio test strips USE TO TEST SUGAR 3 TIMES A DAY IN THE AM, NOON,A ND EVENING No OneTouch Verio test strips USE TO TEST SUGAR 3 TIMES A DAY IN THE AM, NOON,A ND EVENING [facility] cyclobenzap rine 5 mg tablet TAKE 1 TABLET (5 MG TOTAL) BY MOUTH 2 (TWO) TIMES A DAY IF NEEDED FOR MUSCLE SPASMS cyclobenzap rine 5 mg tablet TAKE 1 TABLET (5 MG TOTAL) BY MOUTH 2 (TWO) TIMES A DAY IF NEEDED FOR MUSCLE SPASMS No cyclobenza samira 5 mg tablet TAKE 1 TABLET (5 MG TOTAL) BY MOUTH 2 (TWO) TIMES A DAY IF NEEDED FOR MUSCLE SPASMS [facility] Tradjenta Tradjenta Yes Soto Kauffman 1 tablet [facility] Ciprofloxac in HCl Ciprofloxac in HCl Yes Soto Kauffman not defined [facility] Omeprazole Omeprazole Yes Soto Kauffman 1 capsule [facility] Metformin HCl Metformin HCl Yes Soto Kauffman TAKE 1 TABLET BY MOUTH TWICE DAILY WITH MEALS FOR 90 DAYS [facility] Brimonidine Tartrate-Ti molol Brimonidine Tartrate-Ti molol Yes Soto Kauffman 1 drop into affected eye [facility] Fish Oil Fish Oil Yes Soto Kauffman 1 capsule [facility] Omeprazole Omeprazole Yes Soto Kauffman 1 capsule [facility] Clindamycin HCl Clindamycin HCl Yes Soto Kauffman not defined [facility] OneTouch Verio OneTouch Verio Yes Soto Kauffman not defined [facility] Metformin HCl Metformin HCl Yes Soto Kauffman 1 tablet with meals [facility] Oscal 500/200 D-3 Oscal 500/200 D-3 Yes Soto Kauffman 1 tablet with food [facility] Simvastatin Simvastatin Yes Soto Kauffman 1 tablet in the evening [facility] Tylenol Tylenol Yes Soto Kauffman 2 tablets as needed [facility] Simvastatin Simvastatin Yes Soto Kauffman 1 tablet in the evening [facility] Amoxicillin -Pot Clavulanate Amoxicillin -Pot Clavulanate Yes Soto Kauffman not defined [facility] Lisinopril Lisinopril Yes Soto Kauffman 1 tablet [facility] Lumigan Lumigan Yes Soto Kauffman not defined [facility] Famotidine Famotidine Yes Soto Kauffman 1 tablet at bedtime as needed [facility] Docusate Sodium Docusate Sodium Yes Soto Kauffman 1 capsule as needed [facility] Benadryl Allergy Benadryl Allergy Yes Soto Kauffman 1/2 tablet at bedtime as needed [facility] Dorzolamide -Timolol Dorzolamide -Timolol Yes Soto Kauffman not defined [facility] MiraLax MiraLax Yes Soto Kauffman 1 packet mixed with 8 ounces of fluid [facility] Flonase Flonase Yes Soto Kauffman 1 spray in each nostril [facility] Solifenacin Succinate Solifenacin Succinate Yes Soto Kauffman not defined [facility] Latanoprost Latanoprost Yes Soto Kauffman 1 drop into affected eye in the evening [facility] Oscal 500/200 D-3 500-200 MG-UNIT Oscal 500/200 D-3 500-200 MG-UNIT No 1{table t_with_ food} QD Oscal 500/200 D-3 500-200 MG-UNIT GlipiZIDE ER 10 MG GlipiZIDE ER 10 MG No 1{table t_with_ food} QD GlipiZIDE ER 10 MG Simvastatin 20 MG Simvastatin 20 MG No 1{table t_in_th e_eveni ng} QD Simvastati n 20 MG Combigan Combigan No Combigan Famotidine 20 MG Famotidine 20 MG No 1{table t_at_be dtime_a s_neede d} QD Famotidine 20 MG OneTouch Delica Plus [id number] - OneTouch Delica Plus [id number] - No OneTouch Delica Plus [id number] - Metformin HCl 500 MG Metformin HCl 500 MG No 1{table t_with_ meals} BID Metformin HCl 500 MG Lisinopril 2.5 MG Lisinopril 2.5 MG No 1{table t} QD Lisinopril 2.5 MG Docusate Sodium 100 MG Docusate Sodium 100 MG No 1{capsu le_as_n eeded} QD Docusate Sodium 100 MG Fish Oil 1000 MG Fish Oil 1000 MG No 1{capsu le} QD Fish Oil 1000 MG Combigan 0.2-0.5 % Combigan 0.2-0.5 % No 1{drop_ into_af fected_ eye} BID Combigan 0.2-0.5 % Flonase 50 MCG/ACT Flonase 50 MCG/ACT No 1{spray _in_eac h_nostr il} QD Flonase 50 MCG/ACT Benadryl Allergy 25 MG Benadryl Allergy 25 MG No QD Benadryl Allergy 25 MG Tylenol 325 MG Tylenol 325 MG No 2{table ts_as_n eeded} QID Tylenol 325 MG Oscal 500/200 D-3 500-200 MG-UNIT Oscal 500/200 D-3 500-200 MG-UNIT No 1{table t_with_ food} QD Oscal 500/200 D-3 500-200 MG-UNIT GlipiZIDE ER 10 MG GlipiZIDE ER 10 MG No 1{table t_with_ food} QD GlipiZIDE ER 10 MG Simvastatin 20 MG Simvastatin 20 MG No 1{table t_in e_eveni ng} QD Simvastati n 20 MG Combigan Combigan No Combigan Famotidine 20 MG Famotidine 20 MG No 1{table t_at_be dtime_a s_neede d} QD Famotidine 20 MG OneTouch Delica Plus [id number] - OneTouch Delica Plus [id number] - No OneTouch Delica Plus [id number] - Metformin HCl 500 MG Metformin HCl 500 MG No 1{table t_with_ meals} BID Metformin HCl 500 MG Lisinopril 2.5 MG Lisinopril 2.5 MG No 1{table t} QD Lisinopril 2.5 MG Docusate Sodium 100 MG Docusate Sodium 100 MG No 1{capsu le_as_n eeded} QD Docusate Sodium 100 MG Fish Oil 1000 MG Fish Oil 1000 MG No 1{capsu le} QD Fish Oil 1000 MG Combigan 0.2-0.5 % Combigan 0.2-0.5 % No 1{drop_ into_af fected_ eye} BID Combigan 0.2-0.5 % Flonase 50 MCG/ACT Flonase 50 MCG/ACT No 1{spray _in_eac h_nostr il} QD Flonase 50 MCG/ACT Benadryl Allergy 25 MG Benadryl Allergy 25 MG No QD Benadryl Allergy 25 MG Tylenol 325 MG Tylenol 325 MG No 2{table ts_as_n eeded} QID Tylenol 325 MG Lisinopril 2.5 MG Lisinopril 2.5 MG No 1{table t} QD Lisinopril 2.5 MG Simvastatin 20 MG Simvastatin 20 MG No 1{table t_in e_eveni ng} QD Simvastati n 20 MG Tylenol 325 MG Tylenol 325 MG No 2{table ts_as_n eeded} QID Tylenol 325 MG Flonase 50 MCG/ACT Flonase 50 MCG/ACT No 1{spray _in_eac h_nostr il} QD Flonase 50 MCG/ACT OneTouch Delica Plus [id number] - OneTouch Delica Plus [id number] - No OneTouch Delica Plus [id number] - GlipiZIDE ER 10 MG GlipiZIDE ER 10 MG No 1{table t_with_ food} QD GlipiZIDE ER 10 MG Docusate Sodium 100 MG Docusate Sodium 100 MG No 1{capsu le_as_n eeded} QD Docusate Sodium 100 MG Dorzolamide -Timolol Dorzolamide -Timolol No Dorzolamid e-Timolol Fish Oil 1000 MG Fish Oil 1000 MG No 1{capsu le} QD Fish Oil 1000 MG Famotidine 20 MG Famotidine 20 MG No 1{table t_at_be dtime_a s_neede d} QD Famotidine 20 MG Benadryl Allergy 25 MG Benadryl Allergy 25 MG No QD Benadryl Allergy 25 MG Combigan 0.2-0.5 % Combigan 0.2-0.5 % No 1{drop_ into_af fected_ eye} BID Combigan 0.2-0.5 % Oscal 500/200 D-3 500-200 MG-UNIT Oscal 500/200 D-3 500-200 MG-UNIT No 1{table t_with_ food} QD Oscal 500/200 D-3 500-200 MG-UNIT OneTouch Verio - OneTouch Verio - No OneTouch Verio - OneTouch Verio OneTouch Verio No OneTouch Verio Combigan 0.2-0.5 % Combigan 0.2-0.5 % No 1{drop_ into_af fected_ eye} BID Combigan 0.2-0.5 % Simvastatin 20 MG Simvastatin 20 MG No 1{table t_in_th e_eveni ng} QD Simvastati n 20 MG Fish Oil 1000 MG Fish Oil 1000 MG No 1{capsu le} QD Fish Oil 1000 MG metFORMIN HCl 500 MG metFORMIN HCl 500 MG No 1{table t_with_ meals} BID metFORMIN HCl 500 MG glipiZIDE ER 10 MG glipiZIDE ER 10 MG No 1{table t_with_ food} QD glipiZIDE ER 10 MG Docusate Sodium 100 MG Docusate Sodium 100 MG No 1{capsu le_as_n eeded} QD Docusate Sodium 100 MG OneTouch Delica Plus [id number] - OneTouch Delica Plus [id number] - No OneTouch Delica Plus [id number] - Lisinopril 2.5 MG Lisinopril 2.5 MG No 1{table t} QD Lisinopril 2.5 MG Flonase 50 MCG/ACT Flonase 50 MCG/ACT No 1{spray _in_eac h_nostr il} QD Flonase 50 MCG/ACT OneTouch Verio - OneTouch Verio - No OneTouch Verio - Tylenol 325 MG Tylenol 325 MG No 2{table ts_as_n eeded} QID Tylenol 325 MG Benadryl Allergy 25 MG Benadryl Allergy 25 MG No QD Benadryl Allergy 25 MG Famotidine 20 MG Famotidine 20 MG No 1{table t_at_be dtime_a s_neede d} QD Famotidine 20 MG Tradjenta 5 MG Tradjenta 5 MG No 1{table t} QD Tradjenta 5 MG Vital Signs Vital Name Observation Time Observation Value Comments [facility] Systolic blood pressure 2023-10-01 10:52:00 126 mm[Hg] [facility] Diastolic blood pressure 2023-10-01 10:52:00 75 mm[Hg] [facility] Heart rate 2023-10-01 10:52:00 76 /min [facility] height 2023-10-01 10:52:00 162.6 cm [facility] Body weight 2023-10-01 10:52:00 73.029 kg [facility] BMI 2023-10-01 10:52:00 27.64 kg/m2 [facility] Oxygen saturation in Arterial blood by Pulse oximetry 2023-10-01 10:52:00 98 /min [facility] Systolic blood pressure 2023-10-01 10:52:00 126 mm[Hg] [facility] Diastolic blood pressure 2023-10-01 10:52:00 75 mm[Hg] [facility] Heart rate 2023-10-01 10:52:00 76 /min [facility] Body height 2023-10-01 10:52:00 162.6 cm [facility] T[facility] Body weight 2023-10-01 10:52:00 73.029 kg Chinojin Trivedi [facility] BMI 2023-10-01 10:52:00 27.64 kg/m2 [facility] Oxygen saturation in Arterial blood by Pulse oximetry 2023-10-01 10:52:00 98 /min [facility] Body Weight 2023-05-29 00:00:00 155.2 [lb_av] [place] [facility] BP Systolic 2023-05-29 00:00:00 114 mm[Hg] [facility] Height 2023-05-29 00:00:00 64 [in_i] [place] [facility] [facility] BP Diastolic 2023-05-29 00:00:00 70 mm[Hg] [facility] BMI (Body Mass Index) 2023-05-29 00:00:00 26.6 kg/m2 [place] [facility] BMI (Body Mass Index) 2023-03-20 00:00:00 26.9 kg/m2 [facility] BP Systolic 2023-03-20 00:00:00 109 mm[Hg] [facility] Height 2023-03-20 00:00:00 64 [in_i] [place] [facility] Body Weight 2023-03-20 00:00:00 157 [lb_av] [place] [facility] BP Diastolic 2023-03-20 00:00:00 62 mm[Hg] [place] [facility] BP Systolic 2022-12-19 00:00:00 132 mm[Hg] [facility] BMI (Body Mass Index) 2022-12-19 00:00:00 26.9 kg/m2 [facility] Body Weight 2022-12-19 00:00:00 156.8 [lb_av] [facility] BP Diastolic 2022-12-19 00:00:00 71 mm[Hg] [facility] Height 2022-12-19 00:00:00 64 [in_i] [place] [facility] BP Diastolic 2022-08-22 00:00:00 80 mm[Hg] [facility] Height 2022-08-22 00:00:00 64 [in_i] [facility] BMI (Body Mass Index) 2022-08-22 00:00:00 26.8 kg/m2 [facility] BP Systolic 2022-08-22 00:00:00 125 mm[Hg] [facility] Body Weight 2022-08-22 00:00:00 156 [lb_av] [facility] BP Diastolic 2022-08-15 00:00:00 79 mm[Hg] [facility] Height 2022-08-15 00:00:00 64 [in_i] [facility] BMI (Body Mass Index) 2022-08-15 00:00:00 26.9 kg/m2 [facility] BP Systolic 2022-08-15 00:00:00 125 mm[Hg] [facility] Body Weight 2022-08-15 00:00:00 156.8 [lb_av] [facility] BP Diastolic 2022-05-09 00:00:00 75 mm[Hg] [facility] Height 2022-05-09 00:00:00 64 [in_i] [facility] BMI (Body Mass Index) 2022-05-09 00:00:00 27.3 kg/m2 [facility] BP Systolic 2022-05-09 00:00:00 129 mm[Hg] [facility] Body Weight 2022-05-09 00:00:00 159 [lb_av] [facility] BP Diastolic 2022-03-07 00:00:00 73 mm[Hg] [place] [facility] Height 2022-03-07 00:00:00 64 [in_i] [place] [facility] BMI (Body Mass Index) 2022-03-07 00:00:00 27.1 kg/m2 [facility] BP Systolic 2022-03-07 00:00:00 162 mm[Hg] [facility] Body Weight 2022-03-07 00:00:00 158 [lb_av] [place] [facility] BP Diastolic 2021-06-19 00:00:00 80 mm[Hg] [facility] Height 2021-06-19 00:00:00 64 [in_i] [facility] BMI (Body Mass Index) 2021-06-19 00:00:00 27.6 kg/m2 [facility] BP Systolic 2021-06-19 00:00:00 130 mm[Hg] [facility] Body Weight 2021-06-19 00:00:00 161 [lb_av] [facility] BP Diastolic 2021-06-05 00:00:00 77 mm[Hg] [facility] Height 2021-06-05 00:00:00 64 [in_i] [facility] BMI (Body Mass Index) 2021-06-05 00:00:00 27.6 kg/m2 [facility] BP Systolic 2021-06-05 00:00:00 130 mm[Hg] [facility] Body Weight 2021-06-05 00:00:00 161 [lb_av] [facility] height 2020-11-07 10:20:00 65 [in_i] Commo n [facility] weight 2020-11-07 10:20:00 171.9 [lb_av] Co mmon [facility] temperature 2020-11-07 10:20:00 96.8 [degF] Com mon [facility] bmi 2020-11-07 10:20:00 28.6 kg/m2 Commo n [facility] oximetry 2020-11-07 10:20:00 99 % Commo n [facility] respiratory rate 2020-11-07 10:20:00 16 /min Common [facility] blood pressure systolic 2020-11-07 10:20:00 132 mm[Hg] [facility] blood pressure diastolic 2020-11-07 10:20:00 70 mm[Hg] [facility] height 2020-08-07 10:00:00 65 [in_i] Commo n [facility] weight 2020-08-07 10:00:00 171.1 [lb_av] Co mmon [facility] temperature 2020-08-07 10:00:00 97.2 [degF] Com mon [facility] bmi 2020-08-07 10:00:00 28.47 kg/m2 Comm on [facility] oximetry 2020-08-07 10:00:00 97 % Commo n [facility] respiratory rate 2020-08-07 10:00:00 16 /min [facility] blood pressure systolic 2020-08-07 10:00:00 134 mm[Hg] [facility] blood pressure diastolic 2020-08-07 10:00:00 65 mm[Hg] [facility] height 2020-04-25 10:20:00 65 [in_i] Commo n [facility] weight 2020-04-25 10:20:00 160 [lb_av] Comm on [facility] temperature 2020-04-25 10:20:00 97.8 [degF] Com mon [facility] bmi 2020-04-25 10:20:00 26.62 kg/m2 Comm on [facility] blood pressure systolic 2020-04-25 10:20:00 121 mm[Hg] Common [facility] blood pressure diastolic 2020-04-25 10:20:00 78 mm[Hg] Common [facility] height 2020-04-07 13:30:00 65 [in_i] Commo n [facility] weight 2020-04-07 13:30:00 158.6 [lb_av] Co on [facility] temperature 2020-04-07 13:30:00 96.9 [degF] Com [facility] bmi 2020-04-07 13:30:00 26.39 kg/m2 Comm on [facility] oximetry 2020-04-07 13:30:00 97 % Commo n [facility] blood pressure systolic 2020-04-07 13:30:00 114 mm[Hg] Common [facility] blood pressure diastolic 2020-04-07 13:30:00 66 mm[Hg] [facility] height 2020-04-01 09:30:00 65 [in_i] Commo n [facility] weight 2020-04-01 09:30:00 162.2 [lb_av] Co [facility] temperature 2020-04-01 09:30:00 97.2 [degF] Com [facility] bmi 2020-04-01 09:30:00 26.99 kg/m2 Comm on [facility] oximetry 2020-04-01 09:30:00 98 % Commo n [facility] respiratory rate 2020-04-01 09:30:00 17 /min [facility] blood pressure systolic 2020-04-01 09:30:00 134 mm[Hg] [facility] blood pressure diastolic 2020-04-01 09:30:00 70 mm[Hg] Common [facility] height 2020-01-26 11:30:00 65 [in_i] Commo n [facility] weight 2020-01-26 11:30:00 165.3 [lb_av] Co [facility] temperature 2020-01-26 11:30:00 97.2 [degF] Com [facility] bmi 2020-01-26 11:30:00 27.5 kg/m2 Commo n [facility] oximetry 2020-01-26 11:30:00 98 % Commo n [facility] respiratory rate 2020-01-26 11:30:00 16 /min Common [facility] blood pressure systolic 2020-01-26 11:30:00 132 mm[Hg] [facility] blood pressure diastolic 2020-01-26 11:30:00 66 mm[Hg] [facility] Body Temperature 2019-10-07 18:20:00 98.9 [degF] [facility] [employer] Heart Rate 2019-10-07 18:20:00 85 /min [facility] [employer] [facility] Respiratory rate 2019-10-07 18:20:00 13 /min [facility] [employer] BP Systolic 2019-10-07 18:20:00 134 mm[Hg] [facility] [employer] BP Diastolic 2019-10-07 18:20:00 73 mm[Hg] [facility] [employer] [facility] Heart Rate 2019-10-07 17:45:00 85 /min [facility] Respiratory rate 2019-10-07 17:45:00 13 /min [facility] [employer] BP Systolic 2019-10-07 17:45:00 134 mm[Hg] [facility] BP Diastolic 2019-10-07 17:45:00 73 mm[Hg] [facility] [employer] Weight 2019-10-07 14:29:00 169 [lb_av] [facility] BMI (Body Mass Index) 2019-10-07 14:29:00 29.0 kg/m2 [facility] Procedures Procedure Date / Time Performed Performing Clinician Source Iron Level and TIBC 2023-10-01 00:00:00 [facility] Ferritin 2023-10-01 00:00:00 [facility] Comprehensive Metabolic Panel 2023-10-01 00:00:00 [facility] Complete Blood Count (no diff) 2023-09-12 1 00:00:00 [facility] Esophagogastroduodenoscopy 2023-04-10 00:00:00 [facility] Colonoscopy 2022-03-14 00:00:00 [facility] XR, knee, 1 or 2 view 2021-06-05 00:00:00 [facility] NM, bone scan 2021-06-05 00:00:00 [facility] NM, whole body scan 2021-06-05 00:00:00 [facility] Partial Resection of Colon 2018-01-10 00:00:00 [facility] Procedure on Intestine [facility] [facility] Cholecystectomy [facility] Carpal Tunnel Surgery [facility] [facility] Discectomy of Spine [place] [facility] Total Knee Replacement [facility] [facility] Lap Cholecystectomy [facility] Total Knee Arthroplasty [facility] Plan of Care Planned Activity Planned Date Details Comments Source Goal Patient referral [code = 5660095 ] [facility] Instructions OTHER [facility] GINNA E [facility] Encounters Start Date/Time End Date/Time Encounter Type Admission Type Attending Clinicians Care Facility Care Department Encounter ID Source 2023-10-30 07:43[facility] [id number] [facility] 2023-04-16 09:00:00 Inpatient JASMIN CARNEY [facility] [id number] [facility] 2022-07-12 11:00:00 Inpatient ROSHNI KIRBY [facility] [id number] [facility] 2021-12-24 10:00:00 Inpatient EL ROSHNI RAMACHANDRAN [facility] [id number] [facility] 2021-07-31 14:34:00 [facility] [id number] [facility] 2021-03-07 14:33:19 [facility] [id number] [facility] 2021-03-07 13:54:11 [facility] [id number] [facility] 2021-03-07 13:53:54 Outpatient Kauffman, [facility]oto STLML[facility] ST[facility] [id number] [facility] 2021-03-07 12:59:07 Outpatient Kauffman, Soto STLML[facility] ST[facility] [id number] [facility] 2021-03-07 12:56:24 Outpatient Kauffman, Soto STLMLC ST[facility] [id number] [facility] 2021-03-07 12:55:19 Outpatient Kauffman, [facility]oto STLMLC STL[facility] [id number] [facility] 2021-03-07 12:40:05 Outpatient Kauffman, Soto STLMLC ST[facility] [id number] [facility] 2021-03-07 12:38:22 Outpatient Kauffman, Soto STLC STLMLC [id number] [facility] 2021-03-07 12:32:27 Outpatient Kauffman, Soto STLMLC STL[facility] [id number] [facility] 2021-03-07 12:31:22 Outpatient Kauffman, Soto STLMLC STL[facility] [id number] [facility] 2021-03-07 11:57:39 Outpatient Kauffman, Soto STLML[facility] STL[facility] [id number] [facility] 2021-03-07 11:35:41 Outpatient Kauffman, Soto STLMLC STL[facility]C [id number] [facility] 2021-03-07 11:34:20 Outpatient Kauffman, Soto STLMLC STL[facility] [id number] [facility] 2021-03-07 11:33:21 Outpatient Kauffman, [facility]oto STLML[facility] STL[facility] [id number] [facility] 2021-03-07 11:21:15 Outpatient Kauffman, [facility]oto STLML[facility] STL[facility] [id number] [facility] 2021-03-07 11:18:50 Outpatient Kauffman, [facility] [id number] [facility] 2021-03-07 11:18:09 Outpatient Kauffman, [facility] [id number] [facility] 2021-03-07 11:18:04 Outpatient Kauffman, [facility] [id number] [facility] 2021-03-07 11:03:24 Outpatient Kauffman, [facility] [id number] [facility] 2021-03-07 11:02:41 Outpatient Kauffman, [facility] [id number] [facility] 2021-03-07 11:01:56 Outpatient Kauffman, [facility] [id number] [facility] 2023-10-01 10:18:23 2023-10-01 11:09:16 Outpatient Elective AURORA MARTINEZ MHEOUT MHEOUT [id number] [facility] 2023-10-01 10:00:00 2023-10-01 10:10:00 Office Visit Aurora Martinez [id number] [facility] 2023-08-27 08:54:00 2023-08-27 08:54:00 Outpatient ROSHNI KIRBY [facility] [id number] [facility] 2023-07-24 00:00:00 2023-08-24 23:52:37 Telephone JemimaAurora dawkins Jonas [id number] [facility] 2023-07-10 00:00:00 2023-08-10 23:48:19 Orders Only Tasliman, Erin Tasliman, Erin [place] [address] [id number] Bahman Trivedi [facility] 2023-07-15 10:51:00 2023-07-15 13:31:00 Outpatient AURORA MARTINEZ [facility] [id number] [facility] 2023-07-01 14:53:00 2023-07-01 14:53:00 Outpatient ROSHNI KIRBY [facility] [id number] [facility] 2023-06-13 12:21:00 2023-06-13 12:21:00 Outpatient ROSHNI KIRBY [facility] [id number] [facility] 2023-05-29 00:00:00 2023-05-29 00:00:00 Jasmin Davalos MD: [address] [place] [phone] , [facility]. [facility] [id number] [facility] 2023-05-05 08:31:00 2023-05-05 08:31:00 Outpatient JASMIN CARNEY [facility] [id number] [facility] 2023-04-10 08:43:00 2023-04-10 08:43:00 Outpatient JASMIN CARNEY [facility] [id number] [facility] 2023-04-03 00:00:00 2023-04-03 00:00:00 Outpatient TERI [facility] [id number] [facility] 2023-03-28 16:31:00 2023-03-28 18:00:00 emergency [facility] [id number] 2023-03-28 16:31:00 2023-03-28 18:00:00 Emergency ER Flaca Curran [facility] [id number] [facility] 2023-03-20 00:00:00 2023-03-20 00:00:00 Outpatient AMBREEN_SHEFALI [facility]EN[facility] [id number] [facility] 2023-03-20 00:00:00 2023-03-20 00:00:00 Jasmin Davalos MD: [address] [place] [phone] , [facility]. [facility] [id number] [facility] [facility] 2023-02-18 13:23:00 2023-02-18 13:23:00 Outpatient BERONICA WEST [facility] [id number] [facility] 2023-01-21 09:55:00 2023-01-21 09:55:00 Outpatient ANTHONY ARNDT [facility] [id number] [facility] 2023-01-08 00:00:00 2023-01-08 00:00:00 Outpatient AMBMARY ALICE [facility] [id number] [facility] 2023-01-07 13:29:00 2023-01-07 13:29:00 Outpatient EL ROSHNI RAMACHANDRAN [facility] [id number] [facility] 2023-01-06 10:33:00 2023-01-06 10:33:00 Outpatient EL MADIE ROSHNI [facility] [id number] [facility] 2022-12-27 06:19:00 2022-12-27 13:30:00 Outpatient Elective Mervat Bosch [facility] [id number] [facility] 2022-12-27 06:19:00 2022-12-27 06:19:00 Outpatient [facility] [id number] [facility] 2022-12-19 00:00:00 2022-12-19 00:00:00 Outpatient AMBREEN_FAR HANA [facility] [id number] [facility] 2022-12-19 00:00:00 2022-12-19 00:00:00 Outpatient AMBREEN_FAR HANA [facility] [id number] [facility] 2022-12-19 00:00:00 2022-12-19 00:00:00 Jasmin Davalos MD: [address] [place] [phone] , Ph. [facility] [id number] [facility] 2022-12-09 00:00:00 2022-12-09 00:00:00 Outpatient GC_GCBZW_Ka diyala_S [facility] [id number] [facility] 2022-12-02 09:32:00 2022-12-02 09:32:00 Outpatient MERVAT BERRY [facility] [id number] [facility] 2022-11-25 13:47:00 2022-11-25 21:21:00 Emergency ER CurranFlaca [facility] [id number] [facility] 2022-10-11 11:35:00 2022-10-11 11:36:00 Outpatient ROSHNI ALEXANDRA [id number] [facility] [id number] [facility] 2022-08-22 00:00:00 2022-08-22 00:00:00 Outpatient [facility] [id number] 2022-08-22 00:00:00 2022-08-22 00:00:00 Outpatient cMcDonald [facility] [id number] [facility] 2022-08-22 00:00:00 2022-08-22 00:00:00 Jersey Andujar MD: [address] [address] , Ph. [facility] [id number] [facility] 2022-08-19 14:08:00 2022-08-19 14:08:00 Outpatient CASSIE ANTHONY DE OLIVEIRA [facility] [id number] [facility] 2022-08-15 00:00:00 2022-08-15 00:00:00 Outpatient cMcDonald MMG [facility] [id number] [facility] 2022-08-15 00:00:00 2022-08-15 00:00:00 Jersey Andujar MD: [address], [address] [address] , Ph. [facility] [id number] [facility] 2022-07-30 10:27:00 2022-07-30 10:27:00 Outpatient ROSHNI KIRBY [facility] [id number] [facility] 2022-06-29 22:01:00 2022-06-29 23:45:00 emergency [id number] 2022-06-29 22:01:00 2022-06-29 23:45:00 Emergency ER MARLY ZAYAS [facility] [id number] [facility] 2022-05-18 00:00:00 2022-05-18 00:00:00 Outpatient cMcDonald [facility] [id number] 2022-05-18 00:00:00 2022-05-18 00:00:00 Outpatient cMcDonald MM[facility] [id number] [facility] 2022-05-09 00:00:00 2022-05-09 00:00:00 Outpatient cMcDonald MMG [facility] [id number] [facility] 2022-05-09 00:00:00 2022-05-09 00:00:00 Outpatient cMcDonald MMG [facility] [id number] 2022-05-09 00:00:00 2022-05-09 00:00:00 [place] Andujar MD: [address] [place] [address], [facility], [place] [address] , Ph. [facility] [id number] [facility] 2022-04-27 00:00:00 2022-04-27 00:00:00 Outpatient AMBREEN_FAR [facility] [id number] [facility] 2022-04-27 00:00:00 2022-04-27 00:00:00 Outpatient AMBREEN_FAR [facility] [id number] [facility] 2022-04-10 10:47:00 2022-04-10 10:47:00 Outpatient ROSHNI KIRBY [facility] [id number] [facility] 2022-03-14 09:09:00 2022-03-14 09:09:00 Outpatient JASMIN CARNEY [facility] [id number] [facility] 2022-03-07 00:00:00 2022-03-07 00:00:00 Outpatient AMBREEN_FAR [facility] [id number] [facility] 2022-03-07 00:00:00 2022-03-07 00:00:00 Outpatient AMBREEN_FAR [facility] [id number] [facility] 2022-03-07 00:00:00 2022-03-07 00:00:00 Jasmin Davalos MD: [id number], [address], [place] [address] , Ph. [facility] [place] [facility] [id number] [facility] 2022-03-05 00:00:00 2022-03-05 00:00:00 Outpatient AMBREEN_SHEFALI BRENNAN [facility] [id number] [facility] 2022-02-22 12:49:00 2022-02-22 12:49:00 Outpatient ANTHONY ARNDT [facility] [id number] [facility] 2022-02-18 10:21:00 2022-02-18 10:21:00 Outpatient ROSHNI KIRBY [facility] [id number] [facility] 2021-12-18 13:03:00 2021-12-18 13:03:00 Outpatient ROSHNI KIRBY [facility] [id number] [facility] 2021-12-08 18:01:00 2021-12-08 20:21:00 emergency [id number] 2021-12-08 18:01:00 2021-12-08 20:21:00 Emergency ER MARLY ZAYAS [facility] [id number] [facility] 2021-11-07 10:10:00 2021-11-07 10:10:00 Outpatient EL ROSHNI RAMACHANDRAN [facility] [id number] [facility] 2021-07-26 16:41:00 2021-07-26 18:54:00 Emergency ER ZAHRA BLAKE [facility] [id number] [facility] 2021-06-21 00:00:00 2021-06-21 00:00:00 Outpatient cMcDonald [facility] [id number] [facility] 2021-06-19 02:38:00 2021-06-19 02:38:00 [place] [id number] [facility] 2021-06-19 02:38:00 2021-06-19 02:38:00 [place] [id number] [facility] 2021-06-19 00:00:00 2021-06-19 00:00:00 Jersey Andujar MD: [address] [facility] [address], [place] [address] , Ph. [facility] [place] [facility] [id number] [facility] 2021-06-14 08:04:00 2021-06-14 08:04:00 Outpatient JERSEY OBRIEN [facility] [id number] [facility] 2021-06-07 03:07:00 2021-06-07 03:07:00 Outpatient cMcDonald [facility] [id number] [facility] 2021-06-05 14:37:00 2021-06-05 14:37:00 Outpatient JERSEY OBRIEN [facility] [id number] [facility] 2021-06-05 04:19:00 2021-06-05 04:19:00 Outpatient cMcDonald [facility] [id number] [facility] 2021-06-05 00:00:00 2021-06-05 00:00:00 Jersey Andujar MD: [address] [facility] [address], [place] [address] , Ph. [facility] [place] [facility] [place] [facility] [id number] [facility] 2021-06-04 04:23:00 2021-06-04 04:23:00 [facility] [id number] [facility] 2021-03-19 08:29:00 2021-03-19 08:29:00 Outpatient SHIRA REYES [facility] [id number] [facility] 2021-03-06 10:58:00 2021-03-06 10:58:00 Outpatient ROSHNI KIRBY [facility] [id number] [facility] 2021-02-19 03:53:00 2021-02-19 03:53:00 Outpatient [facility] [id number] [facility] 2020-12-05 00:00:00 2020-12-05 00:00:00 ([place]) Nurse Visit STLMLC STLML[facility] [id number] [facility] 2020-11-10 00:00:00 2020-11-10 00:00:00 (TEL) STLMLC STLMLC [id number] [facility] 2020-11-07 00:00:00 2020-11-07 00:00:00 (TEL) STLMLC STLMLC [id number] [facility] 2020-11-07 00:00:00 2020-11-07 00:00:00 OFFICE VISIT ESTAB PT LEVEL 4 STLMLC STLMLC [id number] [facility] 2020-08-30 00:00:00 2020-08-30 00:00:00 (TEL) STLMLC STLMLC [id number] [facility] 2020-08-07 00:00:00 2020-08-07 00:00:00 OFFICE VISIT ESTAB PT LEVEL 4 STLMLC STLMLC [id number] [facility] 2020-06-02 00:00:00 2020-06-02 00:00:00 (TEL) STLMLC STLMLC [id number] [facility] 2020-04-25 00:00:00 2020-04-25 00:00:00 (TELEAUD) AUDIO TELEMEDICI NE STLMLC STLMLC [id number] [facility] 2020-04-07 00:00:00 2020-04-07 00:00:00 OFFICE VISIT EST PT LEVEL 3 STLMLC STLMLC [id number] [facility] 2020-04-01 00:00:00 2020-04-01 00:00:00 OFFICE VISIT ESTAB PT LEVEL 4 STLMLC STLMLC [id number] [facility] 2020-02-14 00:00:00 2020-02-14 00:00:00 (TEL) STLMLC STLMLC [id number] [facility] 2020-01-26 00:00:00 2020-01-26 00:00:00 OFFICE VISIT ESTAB PT LEVEL 4 STLMLC STLMLC [id number] [facility] 2019-12-25 03:13:00 2019-12-25 03:13:00 Outpatient Faby-Chanda _A_AH VFP VFP [id number] [facility] 2019-12-22 00:00:00 2019-12-22 00:00:00 (TEL) STLMLC STLMLC [id number] [facility] 2019-12-01 00:00:00 2019-12-01 00:00:00 Outpatient STLMLC STLMLC [id number] [facility] 2019-11-09 00:00:00 2019-11-09 00:00:00 Outpatient STLMLC STLMLC [id number] [facility] 2019-11-02 00:00:00 2019-11-02 00:00:00 Outpatient STLMLC STLMLC [id number] [facility] 2019-10-26 16:00:00 2019-10-26 16:00:[address] [facility] [id number] [facility] 2019-10-25 00:00:00 2019-10-25 00:00:00 Outpatient STLMLC STLMLC [id number] [facility] 2019-10-22 10:14:00 2019-10-22 10:14:00 [facility] [id number] [facility] 2019-10-12 15:40:00 2019-10-12 15:40:00 [facility] [id number] [facility] 2019-10-07 15:40:00 2019-10-07 18:20:00 Departed Emergency Room ANKUSH [facility] [id number] 54 [facility] 2019-10-07 14:25:00 2019-10-07 18:20:00 Departed Emergency Room JOSE DAVID MAIN [id number] [address] [place] [address] 2019-09-09 07:41:00 2019-09-09 07:41:00 [facility] [id number] [facility] 2019-09-07 11:00:00 2019-09-07 11:00:00 [facility] [id number] [facility] 2019-08-26 15:49:00 2019-08-26 15:49:00 [facility] [facility] [id number] [facility] 2019-08-19 16:46:00 2019-08-19 16:46:00 [facility] [facility] [id number] [facility] 2019 08:40:00 2019 08:40:00 [place] [id number] [facility] 2019-06-21 10:15:00 2019-06-21 10:15:00 [facility] [id number] [facility] 2019-05-25 14:23:00 2019-05-25 14:23:00 [place] [id number] [facility] 2019-04-30 09:13:00 2019-04-30 09:13:00 [facility] [id number] [facility] 2019-03-31 07:18:00 2019-03-31 07:18:00 Outpatient Faby-Mbayo _A_AH VFP VF [id number] [facility] 2019-03-15 14:30:00 2019-03-15 14:30:[address] [place] [facility] [id number] [facility] 2019-03-08 11:30:00 2019-03-08 11:30:00 [facility] [facility] [id number] [facility] 2019-01-25 17:01:00 2019-01-25 17:01:00 [place] [id number] [facility] 2018-12-23 11:04:00 2018-12-23 11:04:00 [place] [id number] [facility] 2018-11-18 09:53:00 2018-11-18 09:53:00 [facility] [facility] [id number] [facility] 2018-11-09 08:45:00 2018-11-09 08:45:00 [facility] [id number] [facility] 2018-11-05 11:17:00 2018-11-05 11:17:00 [place] [id number] [facility] 2018-11-05 08:00:00 2018-11-05 08:00:00 [facility] [id number] [facility] 2018-10-20 09:00:00 2018-10-20 09:00:00 [facility] [place] [facility] [id number] [facility] 2018-10-13 16:23:00 2018-10-13 16:23:[address] [facility] [facility] [facility] [id number] [facility] 2018-10-01 14:07:00 2018-10-01 14:07:00 [facility] [place] [facility] [id number] [facility] 2018-09-18 11:28:00 2018-09-18 11:28:00 [facility] [facility] [id number] [facility] 2018-09-03 11:00:00 2018-09-03 11:00:00 [facility] [place] [facility] [id number] [facility] 2018-08-27 11:00:00 2018-08-27 11:00:00 [facility] [place] [facility] [id number] [facility] 2018-08-24 10:21:00 2018-08-24 10:21:00 [place] [place] [facility] [id number] [facility] 2018-08-19 11:53:00 2018-08-19 11:53:00 [place] [place] [facility] [id number] [facility] 2018-08-18 14:00:00 2018-08-18 14:00:00 [place] [facility] [id number] [facility] 2018-04-01 09:50:2018-04-01 09:50:00 [place] [place] [facility] [id number] [facility] 2018-03-30 09:30:00 2018-03-30 09:30:00 [place] [place] [facility] [id number] [facility] 2018-03-05 14:15:00 2018-03-05 14:15:00 [facility] [place] [facility] [id number] [facility] 2018-02-23 15:03:00 2018-02-23 15:03:00 [facility] [place] [facility] [id number] [facility] 2018-02-18 11:06:00 2018-02-18 11:06:00 [facility] [place] [facility] [id number] [facility] 2018-02-16 13:17:00 2018-02-16 13:17:00 [facility] [place] [facility] [id number] [facility] 2018-02-11 15:18:00 2018-02-11 15:18:00 [facility] [place] [facility] [id number] [facility] 2018-01-29 08:53:00 2018-01-29 08:53:00 [place] [place] [facility] [id number] [facility] 2018-01-27 10:45:00 2018-01-27 10:45:00 [facility] [place] [facility] [id number] [facility] 2018-01-23 15:17:00 2018-01-23 15:17:00 [place] [place] [facility] [id number] [facility] 2017-11-20 13:15:00 2017-11-20 13:15:00 [place] [place] [facility] [id number] [facility] 2017-11-10 13:45:00 2017-11-10 13:45:00 Outpatient [facility] [id number] [facility] 2017-09-25 10:00:00 2017-09-25 10:00:00 Outpatient [facility] [id number] [facility] 2017-07-31 16:56:00 2017-07-31 16:56:00 Outpatient [facility] [id number] [facility] 2017-07-01 10:23:00 2017-07-01 10:23:00 Outpatient [facility] [id number] [facility] 2017-06-24 10:15:00 2017-06-24 10:15:00 Outpatient [facility] [id number] [facility] Results Test Description Test Time Test Comments Results Result Co mments Source Partial Thromboplastin [id number] 07:30:00* Test Item Value Reference Range Interpretation Comme nts Partial Thromboplastin Time (test code = PTT) 29.1 Seconds 23.9-32.8 N CBC W Auto Differential panel - [id number] 01:56:00* Test Item Value Reference Range Interpretation Comme nts white blood count (test code = white blood count) 6.3 K/uL 4.0-11.5 red blood count (test code = red blood count) 4.12 M/uL 3.80-5.20 hemoglobin (test code = hemoglobin) 12.6 g/dL 10.5-15.7 hematocrit (test code = hematocrit) 36.9 % 34.0-50.0 MCV [Entitic volume] (test c ode = 72338-1) 89.6 fL 86.0-100.0 mean corpuscular hemoglobin (test code = mean corpuscular hemoglobin) 30.6 pg 26.2-33.4 mean corpuscular HGB conc (t est code = mean corpuscular HGB conc) 34.1 g/dL 30.0-34.0 H red cell distribution width (test code = red cell distribution width) 12.5 % 12.0-15.5 platelet count (test code = platelet count) 248 K/uL 165-450 mean platelet volume (test c ode = mean platelet volume) 10.1 fL 9.4-12.6 Segmented neutrophils/100 leukocytes in Blood (test code = 88920-9) 56.3 % 44.4-80.1 Immature granulocytes [#/vol ume] in Blood (test code = 86364-3) 0.02 K/uL 0.00-0.03 lymphocyte% (test code = lymphocyte%) 33.5 % 10.0-50.0 mono % (test code = mono %) 7.1 % 3.6-12.0 eos % (test code = eos %) 2.5 % 0.0-5.4 Basophils/100 leukocytes in Specimen (test code = 48018-2) 0.3 % 0.1-1.2 Band form neutrophils [#/vol ume] in Blood (test code = 33559-5) 3.55 K/uL 1.56-6.13 Lymphocytes [#/volume] in Sp ecimen by Automated count (test code = 92182-6) 2.12 K/uL 1.18-3.74 mono # (test code = mono #) 0.45 K/uL 0.24-0.86 eos # (test code = eos #) 0.16 K/uL 0.04-0.36 basophil # (test code = baso lani #) 0.02 K/uL 0.01-0.08 NRBC% (test code = NRBC%) 0 /100 WBC 0-0.2 NRBC# (test code = NRBC#) 0 K/uL [facility] method unspecified - [id number] 00:00:00NeutrophilsBandLymphocyteAtypical LymphMonocyteEosinophilBasophilAbs Neutrophil Count (Man)Abs Lymph Count (Man)Abs Monocyte Count (Man)Abs Eosinophil Count (Man)Abs Basophil Count (Man)Platelet EstimateDohle Bodies [facility]ry[facility] sedimentation [id number] 00:00:00* Test Item Value Reference Range Interpretation Comme [facility] erythrocyte sedimentation ra te (test code = erythrocyte sedimentation rate) 1 mm/HR 0.00-20 [facility] leukocyte count (number/volume)2019-10-07 15:25:00* Test Item Value Reference Range Interpretation Comme [facility] White Blood Count (test code = 6690-2) 7.9 10*3/uL 3.6-11.2 [facility] automated count (number/volume)2019-10-07 15:25:00* Test Item Value Reference Range Interpretation Comme [facility] Red Blood Count (test code = 789-8) 4.39 10*6/uL 3.63-4.92 [facility] hemoglobin measurement (mass/volume)2019-10-07 15:25:00* Test Item Value Reference Range Interpretation Comme [facility] Hemoglobin (test code = 718-7) 13.8 g/dL 10.9-14.3 [facility] blood hematocrit (volume fraction)2019-10-07 15:25:00* Test Item Value Reference Range Interpretation Comme [facility] Hematocrit (test code = 4544-3) 37.4 % 31.2-41.9 [facility] erythrocyte mean corpuscular volume (MCV) measurement 2019-10-07 15:25:00* Test Item Value Reference Range Interpretation Comme [facility] Mean Corpuscular Volume (shea t code = 787-2) 85.4 fL 78-102 [facility] erythrocyte mean corpuscular hemoglobin (mass per erythrocyte)2019-10-07 15:25:00* Test Item Value Reference Range Interpretation Comme [facility] Mean Corpuscular Hemoglobin (test code = 785-6) 31.5 pg 26-34 [facility] erythrocyte mean corpuscular hemoglobin concentration (MCHC) measurement ([id number] 15:25:00* Test Item Value Reference Range Interpretation Comme [facility] Mean Corpuscular Hemoglobin Concent (test code = 786-4) 36.8 g/dL 31-35 [facility] erythrocyte distribution width [id number] 15:25:00 * Test Item Value Reference Range Interpretation Comme [facility] Red Cell Distribution Width (test code = 788-0) 13.6 % 12.5-14.5 [facility] platelet count (count/volume)2019-10-07 15:25:00 * Test Item Value Reference Range Interpretation Comme nts Platelet Count (test code = 777-3) 198 10*3/uL 130-400 [facility] platelet mean volume [id number] 15:25:00* Test Item Value Reference Range Interpretation Comme nts Mean Platelet Volume (test c ode = 29747-5) 8.4 fL 7.4-10.4 [facility] neutrophil count as percentage of total veilhwtpoq5892-06-75 15:25:00* Test Item Value Reference Range Interpretation Comme nts Neutrophils (%) (Auto) (test code = 770-8) 70.6 % 43.3-76.6 [facility] lymphocyte count as percentage of total [id number] 15:25:00* Test Item Value Reference Range Interpretation Comme nts Lymphocytes (%) (Auto) (test code = 736-9) 22.7 % 16-43.5 [facility] monocyte count as percentage of total leukocytes 2019-10-07 15:25:00* Test Item Value Reference Range Interpretation Comme nts Monocytes (%) (Auto) (test c ode = 5905-5) 5.8 % 4.5-12.5 [facility] blood eosinophil count as percentage of total [id number] 15:25:00* Test Item Value Reference Range Interpretation Comme nts Eosinophils (%) (Auto) (test code = 713-8) 0.5 % 0.6-7.9 [facility] blood basophil count as percentage of total leukocytes 2019-10-07 15:25:00* Test Item Value Reference Range Interpretation Comme nts Basophils (%) (Auto) (test c ode = 706-2) 0.4 % 0.2-1.4 [facility] neutrophil count (number/volume)2019-10-07 15:25:00* Test Item Value Reference Range Interpretation Comme nts Neutrophils # (Auto) (test c ode = 751-8) 5.60 10*3/uL 1.8-7.8 [facility] lymphocyte count (number/volume)2019-10-07 15:25:00* Test Item Value Reference Range Interpretation Comme nts Lymphocytes # (Auto) (test c ode = 731-0) 1.80 10*3/uL 1.0-3.0 [facility] monocyte count (number/volume)2019-10-07 15:25:00 * Test Item Value Reference Range Interpretation Comme nts Monocytes # (Auto) (test cod e = 742-7) 0.50 10*3/uL 0.3-1.0 [facility] blood eosinophil [id number] 15:25:00* Test Item Value Reference Range Interpretation Comme nts Eosinophils # (Auto) (test c ode = 711-2) 0.00 10*3/uL 0.0-0.5 [facility] blood basophil count (number/volume)2019-10-07 15:25:00 * Test Item Value Reference Range Interpretation Comme nts Basophils # (Auto) (test cod e = 704-7) 0.00 10*3/uL 0.0-0.1 [facility] ([facility] by manual [id number] 15:25:00* Test Item Value Reference Range Interpretation Comme nts Erythrocyte Sedimentation Ra te (test code = 45321-0) 8 mm/h 0-20 [facility] Health[facility]um or plasma sodium measurement (moles/volume)2019-10-07 15:25:00* Test Item Value Reference Range Interpretation Comme nts Sodium Level (test code = 2951-2) 136 mmol/L 136-145 [facility] or plasma potassium measurement (moles/volume)2019-10-07 15:25:00* Test Item Value Reference Range Interpretation Comme nts Potassium Level (test code = 2823-3) 4.0 mmol/L 3.5-5.1 [facility] or plasma chloride measurement (moles/volume)2019-10-07 15:25:00* Test Item Value Reference Range Interpretation Comme nts Chloride Level (test code = 2075-0) 102 mmol/L 101-111 [facility]um or plasma total carbon dioxide measurement (moles/volume) 2019-10-07 15:25:00* Test Item Value Reference Range Interpretation Comme nts Carbon Dioxide Level (test c ode = 2027-9) 22 mmol/L 21-31 [facility] Health[facility]um or plasma urea nitrogen measurement (mass/volume)2019-10-07 15:25:00* Test Item Value Reference Range Interpretation Comme nts Blood Urea Nitrogen (test co de = 3094-0) 14 mg/dL 7-25 [facility] Health[facility]um or plasma creatinine measurement (mass/volume)2019-10-07 15:25:00* Test Item Value Reference Range Interpretation Comme nts Creatinine (test code = 2160-0) 0.8 mg/dL 0.6-1.2 [facility]Glomerular filtration rate (GFR) estimation/1.73 sq m using creatinine measurement with MDRD equation in black [id number] 15:25:00* Test Item Value Reference Range Interpretation Comme nts Estimated GFR ( Ameri can) (test code = 18803-2) >60 [facility] non- [id number] 15:25:00* Test Item Value Reference Range Interpretation Comme nts Estimated GFR (Non- A merican (test code = 25327-3) >60 [facility]um or plasma glucose measurement (mass/volume)2019-10-07 15:25:00* Test Item Value Reference Range Interpretation Comme nts Glucose Level (test code = 2345-7) 233 mg/dL 70-110 [facility] or plasma calcium measurement (mass/volume)2019-10-07 15:25:00* Test Item Value Reference Range Interpretation Comme nts Calcium Level (test code = 88188-0) 9.4 mg/dL 8.6-10.3 [facility] or plasma total bilirubin measurement (mass/volume) 2019-10-07 15:25:00* Test Item Value Reference Range Interpretation Comme nts Total Bilirubin (test code = 1975-2) 0.6 mg/dL 0.3-1.0 [facility] or plasma aspartate aminotransferase measurement (enzymatic activity/volume)2019-10-07 15:25:00* Test Item Value Reference Range Interpretation Comme nts Aspartate Amino Transf (AST/ SGOT) (test code = 1920-8) 26 [iU]/L 12-39 [facility] or plasma alanine aminotransferase measurement (enzymatic activity/volume)2019-10-07 15:25:00* Test Item Value Reference Range Interpretation Comme nts Alanine Aminotransferase (AL T/SGPT) (test code = 1742-6) 32 [iU]/L 14-54 [facility] or plasma protein measurement (mass/volume)2019-10-07 15:25:00* Test Item Value Reference Range Interpretation Comme nts Total Protein (test code = 2885-2) 7.2 g/dL 6.4-8.9 [facility] albumin measurement (mass/volume)2019-10-07 15:25:00* Test Item Value Reference Range Interpretation Comme nts Albumin (test code = 1751-7) 4.4 g/dL 3.5-5.7 [facility] alkaline phosphatase measurement (enzymatic activity/volume)2019-10-07 15:25:00* Test Item Value Reference Range Interpretation Comme nts Alkaline Phosphatase (test c ode = 6768-6) 72 [iU]/L 34-104 [facility] (number/volume)2019-10-07 15:25:00 * Test Item Value Reference Range Interpretation Comme nts Basophils # (Auto) (test cod e = 704-7) 0.00 10*3/uL Serum or plasma sodium measurement (moles/volume)2019-10-07 15:25:00* Test Item Value Reference Range Interpretation Comme nts Sodium Level (test code = 2951-2) 136 mmol/L Serum or plasma potassium measurement (moles/volume)2019-10-07 15:25:00* Test Item Value Reference Range Interpretation Comme nts Potassium Level (test code = 2823-3) 4.0 mmol/L Serum or plasma chloride measurement (moles/volume)2019-10-07 15:25:00* Test Item Value Reference Range Interpretation Comme nts Chloride Level (test code = 2075-0) 102 mmol/L Serum or plasma total carbon dioxide measurement (moles/volume)2019-10-07 15:25:00* Test Item Value Reference Range Interpretation Comme nts Carbon Dioxide Level (test c ode = 2028-9) 22 mmol/L Serum or plasma urea nitrogen measurement (mass/volume)2019-10-07 15:25:00* Test Item Value Reference Range Interpretation Comme nts Blood Urea Nitrogen (test co de = 3094-0) 14 mg/dL Serum or plasma creatinine measurement (mass/volume)2019-10-07 15:25:00* Test Item Value Reference Range Interpretation Comme nts Creatinine (test code = 2160-0) 0.8 mg/dL Glomerular filtration rate (GFR) estimation/1.73 sq m using creatinine measurement with MDRD equation in black [id number] 15:25:00* Test Item Value Reference Range Interpretation Comme nts Estimated GFR ( Ameri can) (test code = 34762-3) >60 EGFR non- [id number] 15:25:00* Test Item Value Reference Range Interpretation Comme nts Estimated GFR (Non- A merican (test code = 06053-0) >60 Serum or plasma glucose measurement (mass/volume)2019-10-07 15:25:00* Test Item Value Reference Range Interpretation Comme nts Glucose Level (test code = 2345-7) 233 mg/dL Serum or plasma calcium measurement (mass/volume)2019-10-07 15:25:00* Test Item Value Reference Range Interpretation Comme nts Calcium Level (test code = 30681-3) 9.4 mg/dL Serum or plasma total bilirubin measurement (mass/volume)2019-10-07 15:25:00* Test Item Value Reference Range Interpretation Comme nts Total Bilirubin (test code = 1975-2) 0.6 mg/dL Serum or plasma aspartate aminotransferase measurement (enzymatic activity/volume)2019-10-07 15:25:00* Test Item Value Reference Range Interpretation Comme nts Aspartate Amino Transf (AST/ SGOT) (test code = 1920-8) 26 [iU]/L Serum or plasma protein measurement (mass/volume)2019-10-07 15:25:00* Test Item Value Reference Range Interpretation Comme nts Total Protein (test code = 2885-2) 7.2 g/dL Serum or plasma alkaline phosphatase measurement (enzymatic activity/volume) 2019-10-07 15:25:00* Test Item Value Reference Range Interpretation Comme nts Alkaline Phosphatase (test c ode = 6768-6) 72 [iU]/L Notes LABS:SURGICAL HISTORY:MEDICAL HISTORY:FAMILY HISTORY:ASSESSMENT/PLAN:2. Iron deficiency anemia, unspecified iron deficiency anemia typeNadim Stephen Martinez, MDScheduled Orders Date/Time Note Provider Source 2023-10-01 11:02:09 [facility] 2023-10-01 11:02:09 Aurora Martinez MD - 10/01/2023 10:00 AM CDT GI CLINIC NOTE PRESENTING COMPLAINT: AVM and iron deficiency anemia HISTORY OF PRESENT ILLNESS: 78-year-old here for follow-up. Feels weak and fatigued. Status post enteroscopy with AVM ablation in August. After the ablation her iron level improved. Hemoglobin was not checked. She feels weak and tired usually to be second half of the day. Denies any nausea, vomiting, abdominal pain, black stool or blood in stool. Was having black stool while she was on iron. REVIEW OF SYSTEMS: As per HPI, all other 12 point ROS negative PHYSICAL EXAMINATION: Visit Vitals BP 126/75 (BP Cuff Size: Adult) Pulse 76 CHEST: Breathing without difficulty, no audible wheezing ABDOMEN: Nondistended, Symmetric movement with breathing, not visibly in discomfort EXT : No cyanosis, clubbing, edema NEURO: No focal deficits LYMPHATICS: No visible lymphadenopathy noted MEDICATIONS: Current Outpatient Medications Medication Sig Dispense Refill amLODIPine (Norvasc) 5 MG tablet Take 1 tablet by mouth 1 time each day. baclofen (Lioresal) 10 MG tablet Take 10 mg by mouth in the morning and 10 mg in the evening. cholecalciferol (Vitamin D) 50 MCG (2000 UT) capsule Take 50 mcg by mouth 1 time each day. dorzolamide (Trusopt) 2 % ophthalmic solution Administer 1 drop into both eyes 1 time each day. dorzolamide-timolol (Cosopt) 2-0.5 % ophthalmic solution Administer 1 drop into both eyes in the morning and 1 drop in the evening. fluticasone (Flonase) 50 MCG/ACT nasal spray Administer 1 spray into each nostril 1 time each day. latanoprost (Xalatan) 0.005 % ophthalmic solution Administer 1 drop into both eyes at bedtime. lisinopril 2.5 MG tablet Take 2.5 mg by mouth 1 time each day. metFORMIN (Glucophage) 500 MG tablet Take 500 mg by mouth in the morning and 500 mg in the evening. Take with meals. omeprazole (PriLOSEC) [address] capsule Take 1 capsule by mouth 1 time each day. simvastatin (Zocor) 20 MG tablet Take 20 mg by mouth in the evening. vitamin C 500 MG tablet Take 500 mg by mouth 1 time each day. zinc sulfate (Zincate) 220 (50 Zn) MG capsule Take 50 mg of elemental zinc by mouth 1 time each day. No current facility-administered medications for this visit. No results found for this or any previous visit. Past Surgical History: Procedure Laterality Date SMALL BOWEL ENTEROSCOPY N/A 08/2023 Past Medical History: Diagnosis Date Diabetes (HCC) Hyperlipidemia Hypertension Family History: Problem Relation Name Age of Onset Hypertension Mother Diabetes Mother Stroke Mother Stomach cancer Father Diabetes Sister Heart disease Sister Heart attack Sister Diabetes Son 1. Angiodysplasia of colon without hemorrhage Repeat labs today. Possibility of repeat enteroscopy or double-balloon enteroscopy were discussed. See above Gastroenterology and Hepatology [facility] Maintenance Due Date Last Done Comments Lipid Panel 1945 Medicare Annual Wellness (AWV) 1945 Pneumococcal Vaccine: 65+ Years (1 of 2 - PCV) 1952 Diabetes: Foot Exam 1956 Diabetes: Retinopathy Screening 1956 DTaP/Tdap/Td Vaccines (1 - Tdap) 1965 Diabetes: Urine Protein Screening 1965 Zoster Vaccines (1 of 2) 1996 Respiratory Syncytial Virus (RSV) or >=60 (1 - 1-dose 60+ series) 2006 Diabetes: Hemoglobin A1C 09/13/2023 06/13/2023, 10/12 Influenza Vaccine (#1) 2023 , 11/22/2021, 12/05/2020, Additional history exists HIB Vaccines Aged Out No longer eligi ble based on patient's age to complete this topic HPV Vaccines Aged Out No longer eligi ble based on patient's age to complete this topic Hepatitis A Vaccines Aged Out No long er eligible based on patient's age to complete this topic Hepatitis B Vaccines Aged Out No long er eligible based on patient's age to complete this topic IPV Vaccines Aged Out No longer eligi ble based on patient's age to complete this topic Meningococcal Vaccine Aged Out No damion kaylie eligible based on patient's age to complete this topic Rotavirus Vaccines Aged Out No longer eligible based on patient's age to complete this topic [id number] 11:02:09 Diagnosis Angiodysplasia of colon with out hemorrhage - Primary Iron deficiency anemia, unsp ecified iron deficiency anemia type [facility]Fodwqlr2958-14-49 11:02:09 [facility]hsbhbc8257-19-00 11:02:09* [facility]twqgkf4112-12-60 11:02:09* Aurora Martinez MD - 10/01/2023 10:00 AM CDT GI CLINIC NOTE PRESENTING COMPLAINT: AVM and iron deficiency anemia HISTORY OF PRESENT ILLNESS: 78-year-old here for follow-up. Feels weak and fatigued. Status post enteroscopy with AVM ablation in August. After the ablation her iron level improved. Hemoglobin was not checked. She feels weak and tired usually to be second half of the day. Denies any nausea, vomiting, abdominal pain, black stool or blood in stool. Was having black stool while she was on iron. REVIEW OF SYSTEMS: As per HPI, all other 12 point ROS negative PHYSICAL EXAMINATION: Visit Vitals BP 126/75 (BP Cuff Size: Adult) Pulse 76 CHEST: Breathing without difficulty, no audible wheezing ABDOMEN: Nondistended, Symmetric movement with breathing, not visibly in discomfort EXT : No cyanosis, clubbing, edema NEURO: No focal deficits LYMPHATICS: No visible lymphadenopathy noted MEDICATIONS: Current Outpatient Medications Medication Sig Dispense Refill amLODIPine (Norvasc) 5 MG tablet Take 1 tablet by mouth 1 time each day. baclofen (Lioresal) 10 MG tablet Take 10 mg by mouth in the morning and 10 mg in the evening. cholecalciferol (Vitamin D) 50 MCG (1999) capsule Take 50 mcg by mouth 1 time each day. dorzolamide (Trusopt) 2 % ophthalmic solution Administer 1 drop into both eyes 1 time each day. dorzolamide-timolol (Cosopt) 2-0.5 % ophthalmic solution Administer 1 drop into both eyes in the morning and 1 drop in the evening. fluticasone (Flonase) 50 MCG/ACT nasal spray Administer 1 spray into each nostril 1 time each day. latanoprost (Xalatan) 0.005 % ophthalmic solution Administer 1 drop into both eyes at bedtime. lisinopril 2.5 MG tablet Take 2.5 mg by mouth 1 time each day. metFORMIN (Glucophage) 500 MG tablet Take 500 mg by mouth in the morning and 500 mg in the evening. Take with meals. omeprazole (PriLOSEC) [address] capsule Take 1 capsule by mouth 1 time each day. simvastatin (Zocor) 20 MG tablet Take 20 mg by mouth in the evening. vitamin C 500 MG tablet Take 500 mg by mouth 1 time each day. zinc sulfate (Zincate) 220 (50 Zn) MG capsule Take 50 mg of elemental zinc by mouth 1 time each day. No current facility-administered medications for this visit. LABS: No results found for this or any previous visit. SURGICAL HISTORY:Past Surgical History: Procedure Laterality Date SMALL BOWEL ENTEROSCOPY N/A 08/2023 MEDICAL HISTORY: Past Medical History: Diagnosis Date Diabetes (HCC) Hyperlipidemia Hypertension FAMILY HISTORY: Family History: Problem Relation Name Age of Onset Hypertension Mother Diabetes Mother Stroke Mother Stomach cancer Father Diabetes Sister Heart disease Sister Heart attack Sister Diabetes Son ASSESSMENT/PLAN: 1. Angiodysplasia of colon without hemorrhage Repeat labs today. Possibility of repeat enteroscopy or double-balloon enteroscopy were discussed. 2. Iron deficiency anemia, unspecified iron deficiency anemia typeSee above Aurora Martinez MD Gastroenterology and Hepatology [facility]iqviio8919-77-55 11:02:09Scheduled Orders Health Maintenance Due Date Last Done Comments Lipid Panel 1945 Medicare Annual Wellness (AWV) 1945 Pneumococcal Vaccine: 65+ Years (1 of 2 - PCV) 1952 Diabetes: Foot Exam 1956 Diabetes: Retinopathy Screening 1956 DTaP/Tdap/Td Vaccines (1 - Tdap) 1965 Diabetes: Urine Protein Screening 1965 Zoster Vaccines (1 of 2) 1996 Respiratory Syncytial Virus (RSV) or >=60 (1 - 1-dose 60+ series) 2006 Diabetes: Hemoglobin A1C 09/13/2023 06/13/2023, 10/12 Influenza Vaccine (#1) 2023 , 11/22/2021, 12/05/2020, Additional history exists HIB Vaccines Aged Out No longer eligi ble based on patient's age to complete this topic HPV Vaccines Aged Out No longer eligi ble based on patient's age to complete this topic Hepatitis A Vaccines Aged Out No long er eligible based on patient's age to complete this topic Hepatitis B Vaccines Aged Out No long er eligible based on patient's age to complete this topic IPV Vaccines Aged Out No longer eligi ble based on patient's age to complete this topic Meningococcal Vaccine Aged Out No damion kaylie eligible based on patient's age to complete this topic Rotavirus Vaccines Aged Out No longer eligible based on patient's age to complete this topic [id number] 11:02:09 Diagnosis Angiodysplasia of colon with out hemorrhage - Primary Iron deficiency anemia, unsp ecified iron deficiency anemia type [facility]Pozqmft7544-89-50 11:02:09 [facility]Adrpubo2031-36-13 23:56:16* [facility]Pmatxkz9620-49-10 23:56:16Upcoming Encounters Health Maintenance Due Date Last Done Comments Diabetes: Hemoglobin A1C 1945 Lipid Panel 1945 Medicare Annual Wellness (AWV) 1945 Pneumococcal Vaccine: 65+ Ye ars (1 of 2 - PCV) 1952 Diabetes: Foot Exam 1956 Diabetes: Retinopathy Screening 1956 DTaP/Tdap/Td Vaccines (1 - Tdap) 1965 Diabetes: Urine Protein Screening 1965 Zoster Vaccines (1 of 2) 1996 Respiratory Syncytial Virus (RSV) or >=60 (1 - 1-dose 60+ series) 2006 Influenza Vaccine (#1) 2023 HIB Vaccines Aged Out No longer eligi ble based on patient's age to complete this topic HPV Vaccines Aged Out No longer eligi ble based on patient's age to complete this topic Hepatitis A Vaccines Aged Out No long er eligible based on patient's age to complete this topic Hepatitis B Vaccines Aged Out No long er eligible based on patient's age to complete this topic IPV Vaccines Aged Out No longer eligi ble based on patient's age to complete this topic Meningococcal Vaccine Aged Out No damion kaylie eligible based on patient's age to complete this topic Rotavirus Vaccines Aged Out No longer eligible based on patient's age to complete this topic [facility]Tbrmbwc5448-86-35 23:56:16 [facility]Ncmtrgw7232-69-11 23:48:45 [facility]Hdlaalj6936-27-99 23:48:45Upcoming Encounters Health Maintenance Due Date Last Done Comments Diabetes: Hemoglobin A1C 1945 Lipid Panel 1945 Medicare Annual Wellness (AWV) 1945 Pneumococcal Vaccine: 65+ Ye ars (1 of 2 - PCV) 1952 Diabetes: Foot Exam 1956 Diabetes: Retinopathy Screening 1956 DTaP/Tdap/Td Vaccines (1 - Tdap) 1965 Diabetes: Urine Protein Screening 1965 Zoster Vaccines (1 of 2) 1996 Respiratory Syncytial Virus (RSV) or >=60 (1 - 1-dose 60+ series) 2006 Influenza Vaccine (Season Ended) 2023 HIB Vaccines Aged Out No longer eligi ble based on patient's age to complete this topic HPV Vaccines Aged Out No longer eligi ble based on patient's age to complete this topic Hepatitis A Vaccines Aged Out No long er eligible based on patient's age to complete this topic Hepatitis B Vaccines Aged Out No long er eligible based on patient's age to complete this topic IPV Vaccines Aged Out No longer eligi ble based on patient's age to complete this topic Meningococcal Vaccine Aged Out No damion kaylie eligible based on patient's age to complete this topic Rotavirus Vaccines Aged Out No longer eligible based on patient's age to complete this topic [facility]Uobcwdt3148-27-48 23:48:45 Diagnosis 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 Topic: Appointment Scheduling - Cancel/Reschedule >> Jul 24, 2023 11:19 AM Debbi Granda wrote: Customer Called to Reschedule appointment with provider, would like a sooner appointment please. Patient has been scheduled for August 26. She would like something this month. IANAT Melina Trivedi
--- NOTE | 2023-11-25 00:01 | EDPHYS ---
Physician Documentation [facility] Name: Shelby Mccormick Age: 78 yrs Sex: Female : 1945 Arrival Date: 11/24/2023 Time: 22:39 Bed 5 Private MD: ED Physician Jai Magaña HPI: 11/23 22:59 This 78 yrs old Female presents to ER via Unassigned with complaints of RT LEG sb4 PAIN/SWELLING. 23:01 patient states that she returned from a 10 hour car ride back form [place] today and sb4 noticed that her right ankle was swollen and tender, she is concerned about a blood clot. denies any personal history of clots, but reports a family history of them. she denies any smoking history. she is not on any blood thinners. denies any chest pain or shortness of breath. Historical: - Allergies: 23:09 Demerol; lg3 23:09 Latex; lg3 23:09 meperidine; lg3 - Home Meds: 23:09 metformin 500 mg Oral tab 1 tab 2 times per day [Active]; simvastatin 20 mg Oral tab 1 lg3 tab once daily [Active]; lisinopril 2.5 mg Oral tab 1 tab once daily [Active]; amlodipine oral [Active]; - PMHx: 23:09 acid reflux; Diabetes - NIDDM; High Cholesterol; colon cancer (High Cholesterol); lg3 - PSHx: 23:09 knee replacement (High Cholesterol); carpal tunnel (High Cholesterol); neck (High lg3 Cholesterol); Total abdominal hysterectomy; colon ressection; - Immunization history:: Adult Immunizations up to date. - Infectious Disease History:: Denies. - Social history:: Smoking status: Patient denies any tobacco usage or history of. Patient/guardian denies using alcohol, street drugs. ROS: 23:01 Constitutional: Negative for fever, chills, and weight loss, sb4 23:01 MS/extremity: Positive for erythema, pain, swelling, tenderness, warmth, of the right ankle, 23:01 All other systems are negative, Exam: 23:01 Constitutional: This is a well developed, well nourished patient who is awake, alert, sb4 and in no acute distress. Head/Face: Normocephalic, atraumatic. Eyes: Extra-ocular motions intact. Periorbital areas with no swelling, redness, or edema. ENT: Mucous membranes moist. Cardiovascular: Regular rate and rhythm with a normal S1 and S2. Respiratory: Lungs have equal breath sounds bilaterally, clear to auscultation and percussion. No rales, rhonchi or wheezes noted. No increased work of breathing, no retractions or nasal flaring. 23:01 Musculoskeletal/extremity: DVT Exam: negative Homans' sign noted on exam, no appreciated bluish discoloration, no erythema, no increased warmth, pain, swelling, tenderness, of the right leg, Vital Signs: 22:59 BP 161 / 86; Pulse 98; Resp 18; Temp 98.6; Pulse Ox 98% ; Weight 75.3 kg; Height 5 ft. ty 4 in. ; Pain 5/10; 11/24 00:04 BP 124 / 69; Pulse 69; Resp 17; Temp 98.6; Pulse Ox 97% ; Pain 0/10; bm8 11/23 22:59 Body Mass Index 28.49 (75.30 kg, 162.56 cm) ty 11/23 22:59 Pain Scale: Adult ty 11/24 00:04 Pain Scale: Adult bm8 Abimbola Coma Score: 00:04 Eye Response: spontaneous(4). Motor Response: obeys commands(6). Verbal Response: bm8 oriented(5). Total: 15. MDM: 11/23 22:47 Medical Screening Exam initiated sb4 23:26 Data reviewed: vital signs, nurses notes, radiologic studies, and as a result, I will sb4 discharge patient. Counseling: I had a detailed discussion with the patient and/or guardian regarding the historical points, exam findings, and any diagnostic results supporting the discharge/admit diagnosis, the presence of at least one elevated blood pressure reading (>120/80) during this emergency department visit, radiology results, to return to the emergency department if symptoms worsen or persist or if there are any questions or concerns that arise at home. 11/23 22:59 Order name: Extremity [employer] sb4 Administered Medications: No medications were administered Disposition Summary: 11/25/23 00:00 Discharge Ordered Notes: Location: Home sb4 Problem: new sb4 Symptoms: are unchanged sb4 Condition: Stable sb4 Diagnosis - Pain in right lower leg sb4 Followup: sb4 - With: Private Physician - When: As needed - Reason: Recheck today's complaints, Re-evaluation by your physician Discharge Instructions: - Discharge Summary Sheet sb4 - Musculoskeletal Pain sb4 - Pain Without a Known Cause sb4 Forms: - Patient Portal Instructions sb4 - Leadership Thank You Letter sb4 Signatures: Dispatcher [employer] Geneva Higuera RN RN lg3 Rashida Briones PA-C PA-C sb4 Corrections: (The following items were deleted from the chart) 23:28 23:01 patient states that she returned from a car ride back form [place] today and sb4 noticed that her right ankle was swollen and tender, she is concerned about a blood clot. denies any personal history of clots, but reports a family history of them. she denies any smoking history. she is not on any blood thinners. denies any chest pain or shortness of breath. sb4
--- NOTE | 2023-11-25 00:01 | ER ---
Nurse's Notes [facility] Name: Shelby Mccormick Age: 78 yrs Sex: Female : 1945 Arrival Date: 11/24/2023 Time: 22:39 Bed 5 Private MD: Diagnosis: Pain in right lower leg Presentation: 11/23 23:08 Chief complaint: Patient states: right ankle swelling, redness and pain X1 day. lg3 Coronavirus screen: Client denies travel out of the [place] in the last 14 days. At this time, the client does not indicate any symptoms associated with coronavirus-19. Ebola Screen: No symptoms or risks identified at this time. Initial Sepsis Screen: Does the patient meet any 2 criteria? No. Patient's initial sepsis screen is negative. Does the patient have a suspected source of infection? No. Patient's initial sepsis screen is negative. Risk Assessment: Do you want to hurt yourself or someone else? Patient reports no desire to harm self or others. Onset of symptoms was November 23, 2023. 23:08 Method Of Arrival: Ambulatory lg3 23:08 Acuity: GORDON 4 lg3 Triage Assessment: 23:09 General: Appears in no apparent distress. comfortable, Behavior is calm, cooperative. lg3 Pain: Complains of pain in right ankle Pain does not radiate. Pain currently is 4 out of 10 on a pain scale. EENT: No deficits noted. No signs and/or symptoms were reported regarding the EENT system. Neuro: No deficits noted. Henriquez Agitation-Sedation Scale (RASS): 0 - Alert and Calm Level of Consciousness is awake, alert, obeys commands, Oriented to person, place, time, situation. Cardiovascular: No deficits noted. Denies chest pain, shortness of breath, Capillary refill < 3 seconds Clubbing of nail beds is absent JVD is absent Patient's skin is warm and dry. Respiratory: No deficits noted. Airway is patent Respiratory effort is even, unlabored, Respiratory pattern is regular, symmetrical. GI: No deficits noted. No signs and/or symptoms were reported involving the gastrointestinal system. : No deficits noted. No signs and/or symptoms were reported regarding the genitourinary system. Derm: No deficits noted. Skin is intact, is healthy with good turgor, Skin is dry, Skin is normal, Skin temperature is warm Reports pain. Musculoskeletal: No deficits noted. Circulation, motion, and sensation intact. Range of motion: intact in all extremities, Reports redness and swelling to right ankle. none noted at this time. Historical: - Allergies: 23:09 Demerol; lg3 23:09 Latex; lg3 23:09 meperidine; lg3 - Home Meds: 23:09 metformin 500 mg Oral tab 1 tab 2 times per day [Active]; simvastatin 20 mg Oral tab 1 lg3 tab once daily [Active]; lisinopril 2.5 mg Oral tab 1 tab once daily [Active]; amlodipine oral [Active]; - PMHx: 23:09 acid reflux; Diabetes - NIDDM; High Cholesterol; colon cancer (High Cholesterol); lg3 - PSHx: 23:09 knee replacement (High Cholesterol); carpal tunnel (High Cholesterol); neck (High lg3 Cholesterol); Total abdominal hysterectomy; colon ressection; - Immunization history:: Adult Immunizations up to date. - Infectious Disease History:: Denies. - Social history:: Smoking status: Patient denies any tobacco usage or history of. Patient/guardian denies using alcohol, street drugs. Screenin:13 [facility] ED Fall Risk Assessment (Adult) History of falling in the last 3 months, lg3 including since admission No falls in past 3 months (0 pts) Confusion or Disorientation No (0 pts) Intoxicated or Sedated No (0 pts) Impaired Gait No (0 pts) Mobility Assist Device Used No (0 pt) Altered Elimination No (0 pt) Score/Fall Risk Level 0 - 2 = Low Risk Oriented to surroundings, Maintained a safe environment, Educated pt \T\ family on fall prevention, incl call for assistance when getting out of bed, Assessed \T\ reinforced patient's understanding of fall precautions. Abuse screen: Denies threats or abuse. Denies injuries from another. Nutritional screening: No deficits noted. Tuberculosis screening: No symptoms or risk factors identified. Assessment: 23:13 General: see triage assessment. lg3 11/24 00:04 Reassessment: Patient appears in no apparent distress at this time. Patient and/or bm8 family updated on plan of care and expected duration. Pain level reassessed. Patient is alert, oriented x 3, equal unlabored respirations, skin warm/dry/pink. Patient denies pain at this time. Patient states feeling better. Patient states symptoms have improved. Vital Signs: 11/23 22:59 BP 161 / 86; Pulse 98; Resp 18; Temp 98.6; Pulse Ox 98% ; Weight 75.3 kg; Height 5 ft. ty 4 in. ; Pain 5/10; 11/24 00:04 BP 124 / 69; Pulse 69; Resp 17; Temp 98.6; Pulse Ox 97% ; Pain 0/10; bm8 11/23 22:59 Body Mass Index 28.49 (75.30 kg, 162.56 cm) ty 11/23 22:59 Pain Scale: Adult ty 11/24 00:04 Pain Scale: Adult bm8 Brady Coma Score: 00:04 Eye Response: spontaneous(4). Motor Response: obeys commands(6). Verbal Response: bm8 oriented(5). Total: 15. ED Course: 11/23 22:41 Patient arrived in ED. jj6 22:45 Rashida Briones PA-C is PHCP. sb4 22:45 Jai Magaña MD is Attending Physician. sb4 23:08 Geneva Slater RN is Primary Nurse. lg3 23:09 Triage completed. lg3 23:09 Arm band placed on right wrist. lg3 23:13 Patient has correct armband on for positive identification. Placed in gown. Bed in low lg3 position. Call light in reach. Side rails up X 1. Client placed on continuous cardiac and pulse oximetry monitoring. NIBP monitoring applied. Door closed. Noise minimized. Warm blanket given. Pillow given. Family accompanied patient. 23:24 Extremity Venous [employer] US In Process Unspecified. EDMS 11/24 00:04 Provided Education on: post er care. bm8 00:04 No provider procedures requiring assistance completed. Patient did not have IV access bm8 during this emergency room visit. Administered Medications: No medications were administered Medication: 11/23 23:13 VIS not applicable for this client. lg3 Outcome: 11/24 00:00 Discharge ordered by . sb4 00:04 Discharged to home ambulatory, bm8 00:04 Discharge instructions given to patient, family, Instructed on discharge instructions, follow up and referral plans. no drinking with medication, no driving heavy equipment, medication usage, safety practices, Demonstrated understanding of instructions, follow-up care, medications, 00:06 Condition: stable bm8 00:06 Patient left the ED. bm8 Signatures: Dispatcher [employer] EDGeneva Myles RN RN lg3 Radha Arizmendi Sophia, PA-C PA-C sb4 Barak Gomez Brad, RN RN bm8
--- NOTE | 2023-11-25 00:36 | RAD REPORT ---
EXAM DESCRIPTION: Extremity Venous [employer]: US EXTREMITY VEINS UNILATERAL CLINICAL HISTORY: 78 years Female; Pain;Swelling TECHNIQUE: Spectral analysis and color/grayscale sonographic images of the right leg were obtained utilizing a h igh-frequency linear array transducer supplemented with color Doppler, compression and augmentation techniques. COMPARISON: None. FINDINGS: Common femoral: normal Greater saphenous: normal Superficial femoral: normal Popliteal: normal Calf Veins: normal IMPRESSION: No sonographic evidence for right lower extremity deep venous thrombosis. Electronically signed by: Elizabeth Nguyen MD 11/25/2023 12:14 AM CDT RP Z9 Due to temporary technical issues with the PACS[employer] reporting system, reports are being signed by the in-house radiologist without review as a courtesy to ensure prompt reporting the interpreting radiologist is fully responsible for the content of the report. Transcribed Date/Time: 11/25/2023 12:36 AM
[2023-11-25 05:04] VITALS: TEMP 98.6
[2023-11-25 05:06] VITALS: BP 124/69; O2SAT 97
== END 2023-11-25 00:06 | disposition home or self-care (01) ==
LOC: ER 22:39
DX: M79.661 Pain in right lower leg (principal); E11.9 Type 2 diabetes mellitus without complications; E78.00 Pure hypercholesterolemia, unspecified
CPT/HCPCS: 93971; 99283